=== PATIENT | male | born 1950 | race Caucasian/White ===

== ENCOUNTER → 2016-07-26 | Day surgery (SDC) | payer BC ==
[~2016-07-26] VITALS: Ht 188 cm; Wt 109.0 kg
[~2016-07-26] MED LIST: ASPEC325 PO; ASPI81TA28 PO; ATOR-24 PO; CEFAZOLIN 1000MG/55 ML D5W IV SCH; CEFAZOLIN 2000 MG/60 ML D5W IV SCH; CHOL1000 PO; CLOP1TAB15 PO; CLOP1TAB5 PO; CLOPIDOGREL BISULFATE 300 MG TAB PO ONE; COEN100C11 PO; CYAN500T PO; CZR25 PO; DOXY100C76 PO; FENTANYL CITRATE INJ 50 MCG/1 ML 2 ML VIAL IV ONE; FENTANYL CITRATE INJ 50 MCG/1 ML 2 ML VIAL ONE; GEMF600T3 PO; HEPARIN SOD (PORCINE) 1000 UNIT/ML 10 ML VIAL IV ONE; HEPARIN SOD (PORCINE) 1000 UNIT/ML 10 ML VIAL ONE; HMLI SC; INSDGI SC; INSDGIPEN SC; INSU100I; IODIXANOL (VISIPAQUE) 270 MG/ML 150ML XX ONE; LIDOCAINE HCL 1% 20 ML VIAL INJ ONE; LINE1TAB6 PO; LISI-729 PO; LSN25 PO; MEDLIST; METO50TA16 PO; MIDAZOLAM HCL 1 MG/ML 2ML VIAL IV ONE; MIDAZOLAM HCL 1 MG/ML 2ML VIAL ONE; NEBI10TA2 PO; OMEG10007 PO; ONDANSETRON INJ 2 MG/ML 2 ML VIAL IV PRN; OXYCODONE/ACETAMINOPHEN 5-325 TAB PO PRN; PATIENT'S HEIGHT AND/OR WEIGHT NEEDED SCH; SODIUM CHLORIDE 0.9% 1000ML 1,000 ML IV SCH; SULF800T23 PO
[2016-07-26 06:34] VITALS: BP 170/74; PULSE 70; TEMP 36.4; O2SAT 98; Ht 188 cm; Wt 109.0 kg
[2016-07-26 07:19] LABS: CREATININE 0.94 mg/dl (0.60-1.40)
--- NOTE | 2016-07-26 08:11 | Procedure Note ---
Pre-Mod Sedation Assessment General Date of Moderate Sedation: Jul 26, 2016. Vital Signs: Vital Signs Past 12 Hours Date Time Temp Pulse Resp B/P Pulse Ox O2 Delivery O2 Flow Rate FiO2 07/26/16 06:34 36.4 70 18 170/74 98 Room Air Pre-Sedation Airway Assessment Oral Cavity: WNL Smoking Status: Never Smoker Mallampati Classification: Class I ASA Classification: Class II Notes The planned sedation has been discussed with the patient and consent obtained. I have identified the patient, determined the appropriateness of sedation and have assessed the patient immediately prior to the procedure. All medicine(s) and interventions are by my order.
--- NOTE | 2016-07-26 08:11 | History and Physical ---
History & Physical CC: Bilateral leg claudication HPI: Mr. Llanos states that for approximately a year or so, he has begun having right calf discomfort when ambulating. He states that originally it was occurring at a longer distance, but at this point, he feels he could probably walk approximately a block and a half before needing to stop ambulating due to the discomfort. He states that he feels that it definitely has gotten worse. He denies any rest pain at night, although he does state that his right great toe developed a small wound on the plantar aspect in March and it has now been over 3 months since that developed. He states it has not yet healed, although he is going to the [facility] for wound care on a weekly basis. He denies any other complaints at this time including headaches, fevers , chills, dizziness, chest pain, shortness of breath, abdominal pain, nausea, vomiting, diarrhea, constipation, dysuria, hematuria, or other complaints. He initially had an ultrasound performed prior to today's appointment at another facility that demonstrated a likely inflated JOHNATHON in the right leg of 0.69 and noncompressible arteries in the left leg as well as a right popliteal artery occlusion with monophasic single-vessel flow to the foot. ALLERGIES: No known allergies. HOME MEDICATIONS: Reconciled on the chart and include the following: Aspirin, coenzyme Q10, fish oil, gemfibrozil, Humalog mix pen, Lantus, Lipitor, losartan , metoprolol, vitamin B12, vitamin D3. PAST MEDICAL HISTORY: Positive for a cerebrovascular accident, diabetes mellitus, hyperlipidemia, hypertension, and IL. PAST SURGICAL HISTORY: Positive for cardiac catheterization without intervention. Cataract surgery, eye vitrectomy and laser surgery on his eye as well as a tonsillectomy. FAMILY HISTORY: Positive for cancer and stroke in his mother, diabetes mellitus , IL, heart disease, hypertension in his father, diabetes, heart disease, and heart valve replacement and hypertension in his brother. SOCIAL HISTORY: Negative for tobacco, alcohol or drug use. REVIEW OF SYSTEMS: Negative for fatigue, fevers, sweats, weight loss or exercise intolerance, abnormal moles or rashes, vision changes, photophobia, ear pain, sinus problems or sore throat, cough, shortness of breath, hemoptysis , wheezing, chest pain, palpitations, edema or syncope, abdominal pain, nausea, vomiting, diarrhea, constipation, dysuria, hematuria, muscle weakness, headaches , dizziness, numbness or seizures. PHYSICAL EXAM: His vital signs are as follows: Blood pressure 134/70 in the right arm, 136/70 in the left, heart rate 57, oxygen 98% on room air. The patient is 189.7 cm tall and weighs 111.9 kilograms. Constitutional: In general, patient is a mildly chronically ill-appearing middle-aged male in no acute distress. He ambulates without assistance and is active, alert and oriented x4 with normal recent and remote memory. Head is normocephalic, atraumatic. Eyes are EOMI. ENMT exam demonstrates no hearing loss, rhinorrhea or pharyngeal erythema. Neck is supple, nontender with midline trachea without masses or crepitus. Lung exam demonstrates no dyspnea. They are clear to auscultation bilaterally. Cardiovascular exam demonstrates nondisplaced apical impulse with a regular rate and rhythm without murmurs, lifts, heaves, thrills or gallops. Peripheral pulses are full and equal in all extremities unless otherwise noted, specifically they are normal in his carotid, brachial, radial and femoral pulses. His bilateral lower extremity. Distal pulses are nonpalpable, but are present with Doppler, they are monophasic in the right leg and biphasic in the left. He has brisk capillary refill in all toes. No sign of distal ischemia. The patient demonstrates no bruits in his carotid, abdominal or femoral area. Abdomen is soft, nontender with normoactive bowel sounds in all 4 quadrants without guarding or rebound. There was no flank or CVA tenderness. Musculoskeletal exam demonstrates normal tone and strength for age. Bilateral upper extremities demonstrate no cyanosis, edema, varicosities or ulcers. Right lower extremity plantar surface of the distal part of his right great toe does demonstrate a small shallow ulceration into a callus but this is not very deep. There does not appear to be any significant periwound erythema, but there is a significant amount of dry scaly skin there. There is no odor or drainage and there does not appear to be a black eschar or sign of ischemia. Neurologically, patient is grossly intact cranial nerves and grossly intact sensation. ASSESSMENT AND PLAN: Peripheral arterial disease with claudication and ulceration of the right great toe. Plan: Patient admitted for arteriography of the right lower extremity with possible intervention. I have discussed the risks options and benefits of the procedure with the patient. The patient understands the risks options and benefits and agrees to the procedure.
--- NOTE | 2016-07-26 10:48 | [facility] Post Operative Brief Note ---
Immediate Operative Summary Operative Date Jul 26, 2016. Pre-Operative Diagnosis Right lower extremity atherosclerosis with ulcer Post-Operative Diagnosis Same Procedure(s) Performed Right lower extremity arteriogram YARD GENERAL CAR SUPERVISOR of right peroneal and ant tibial arteries and tibio peroneal trunk Mechanical closure left femoral artery Surgeon Dr. Carrero Mobile Application Developer Surgeon(s) None Estimated Blood Loss 10 Findings ant tib and peroneal occlusion at the origins no residual at end Specimens none Anesthesia Local with sedation Complication(s) None Disposition
--- NOTE | 2016-07-26 10:49 | Procedure Note ---
Post-Moderate Sedation Plan General Date of Moderate Sedation Jul 26, 2016. Vital Signs: Vital Signs Past 12 Hours Date Time Temp Pulse Resp B/P Pulse Ox O2 Delivery O2 Flow Rate FiO2 07/26/16 06:34 36.4 70 18 170/74 98 Room Air Review - Discharge Plan Post Moderate Sedation Plan: On clinical assessment, the patient appears to have tolerated the conscious sedation without complications. Patient is recovering as anticipated. Patient will continue to be monitored by nursing and may be discharged when conscious sedation discharge criteria are met.
--- NOTE | 2016-07-26 10:52 | Discharge Instructions ---
Discharge Instructions Visit Reason for Visit: Rle Peripheral Arterial Disease W/Ulcer Discharge Discharge Diagnosis / Problem: Right lower extremity atherosclerosis with ulcer Discharge Goals Goal(s): Therapeutic intervention Activity Recommendations Activity Limitations: per Instructions/Follow-up section Anesthesia . Post Anesthesia Instructions: If you have had General Anesthesia or IV Sedation: * Do not drive today. * Resume driving when surgeon permits. * Do not make important decisions or sign legal documents today. * Call surgeon for: 1. Temperature elevations greater than 101 degrees F. 2. Uncontrollable pain. 3. Excessive bleeding. 4. Persistent nausea and vomiting. 5. Medication intolerance (nausea, vomiting or rash). * For nausea and vomiting use only clear liquids such as: tea, soda, bouillon until nausea subsides, then gradually increase diet as tolerated. * If you have any concerns or questions, call your surgeon's office. If physician is unavailable and it is an emergency, call 911 or go to the nearest emergency room. . Instructions / Follow-Up Instructions / Follow-Up Call [phone] to schedule a follow up appointment if one not already scheduled. SPECIAL CARE INSTRUCTIONS: Medications: * Continue to take your medications as directed. If you have been given a prescription for Plavix, please fill it immediately and take as directed. Incision Care: * Your puncture site may have some bruising and minor swelling for about one week. * You will have a small dressing covering your puncture site. You may remove the dressing after 24 hours and shower. You may let the warm soapy water run over it, but be sure to dry the puncture site well and keep it dry. * DO NOT IMMERSE THE INCISION IN A TUB/POOL/etc. UNTIL HEALED. * Puncture sites should be kept covered with a band-aid until it begins to heal. Restrictions: * Depending on whether you leg or arm was punctured to access the arteries, you will be required to lay flat, hold your arm still, or both, for about 4 hours after the procedure to prevent bleeding. * Limit your activity for the first 48 hours. You may walk and go up and down steps. Avoid excessive bending or movement at the puncture site. Possible Complications: * Excessive Swelling - after blood flow is improved you may notice increased swelling in the lower legs. This is a normal response. This usually depends on the amount of blockages in the leg, how long they have been there prior to your procedure and how much blood flow was restored. Elevating your legs will help to improve this. Please notify our office ([phone] ) if the swelling does not go away after lying in bed overnight. * Infection/Drainage/Bleeding - Drainage or bleeding from the puncture site should be minimal. If you have excessive bleeding or drainage, call our office ([phone]) right away. * Pain - You may experience some mild pain or soreness at your puncture site. If your pain does not improve, please contact our office ([phone]). Call your doctor and seek emergent treatment if you develop: * Temperature above 101 degrees * Any fever or chills * Any redness or purulent drainage from the puncture site * Any new dusky/blue colored toes or feet with coolness or sharp or aching pain. SKIN IRRITATION: * You may experience some redness and/or swelling in the area where radiation was administered. If any skin irritation occurs, please contact your family physician. FOLLOW UP VISIT: Keep any scheduled doctor appointments. Diet Recommendations Recommended Home Diet: resume previous diet Procedures Procedures Performed: Right lower extremity arteriogram COMPUTER SECURITY MANAGER of right peroneal and ant tibial arteries and tibio peroneal trunk Mechanical closure left femoral artery Pending Studies Studies pending at discharge: no Medical Emergencies . Who to Call and When: Medical Emergencies: If at any time you feel your situation is an emergency, please call 911 immediately. . Non-Emergent Contact Non-Emergency issues call your: Surgeon . . "Provider Documentation" section prepared by David Carrero.
[2016-07-26 10:55] VITALS: BP 141/75; PULSE 72; TEMP 36.7; O2SAT 100
[2016-07-26 11:25] VITALS: BP 152/75; PULSE 67; TEMP 36.7; O2SAT 100
[2016-07-26 11:55] VITALS: BP 185/95; PULSE 73; TEMP 36.8; O2SAT 100
--- NOTE | 2016-07-26 12:20 | DIAGNOSTIC IMAGING REPORT ---
DATE OF PROCEDURE: 07/26/2016 PREOPERATIVE DIAGNOSIS: Right lower extremity atherosclerosis with ulceration of the toe. POSTOPERATIVE DIAGNOSIS: Same with anterior tibial and peroneal origin occlusions. PROCEDURES: 1. Right lower extremity arteriography. 2. Balloon angioplasty of anterior tibial. 3. Balloon angioplasty of peroneal artery. 4. Balloon angioplasty of distal popliteal artery 5. Mechanical closure of left common femoral artery. SURGEON: Dr. Carrero. ANESTHETIC: Local with sedation. PROCEDURE INDICATIONS: The patient is a 66-year-old gentleman who has an ulcer at the tip of his right great toe which is nonhealing. Also has severe claudication. He is found to have a popliteal artery occlusion. Arteriography was recommended. He understood the risks, options and benefits of arteriography and possible intervention and agreed to have this procedure. PROCEDURE IN DETAIL: The patient was taken to the angio suite and placed in supine position. After groins were prepped and draped in a sterile manner, local anesthetic was administered. Percutaneous puncture was made in the left common femoral artery. An 0.035 wire was inserted and 5-Burmese sheath was inserted over the wire. Using an 0.035 guidewire and rim catheter, the right iliac was cannulated from the left side. The rim could not advance. So we just exchanged it for a Quick-Cross. The 0.035 Quick-Cross was then passed down into the external iliac artery and arteriography was performed. The external iliac, common femoral, profunda and superficial femoral artery origins were widely patent with minimal plaque. The wire was reinserted and the Quick-Cross was passed down into the superficial femoral artery. Rest of the arteriogram was performed, showing the superficial femoral artery to be patent. There was slight narrowing at the adductor hiatus. The popliteal artery was patent down to the distal popliteal. The anterior tibial and peroneal artery origins were occluded and reconstituted shortly after. The posterior tibial artery was occluded in its entirety. Lower extremity run showed the peroneal and anterior tibial artery down to the ankle and crossing the foot. At that point, a stiffened Glidewire was inserted. It was passed down into the popliteal, it could not pass the distal popliteal lesion. The Quick-Cross was removed as well as the 5-Burmese sheath and a 7-Burmese destination 60cm length was inserted. Using the Quick-Cross and 0.035 wire, the anterior tibial artery was cannulated. Quick-Cross was passed across the lesion and arteriography showed it to be true lumen. It was decided to try to cannulate both arteries prior to doing any ballooning, in case the balloon would push the plaque over to the other artery. The Quick-Cross was removed after an 0.014 wire was placed in its place into the anterior tibial. Another 0.014 wire and an 0.014 Quick-Cross was inserted. The distal popliteal lesion and peroneal were then traversed with the 0.014 Quick-Cross. The wire was removed. Injection at that point showed it to be true lumen. The wire was reinserted. Next, a 3 x 120 balloon was inserted into anterior tibial artery was dilated first, followed by the peroneal artery. These looked fairly good after post-dilatation. Both arteries were dilated with 8 atmospheres of pressure. We then used a 5 x 4 balloon and dilated the distal popliteal. This however appeared to push plaque back down into the origins of the 2 runoff vessels and decrease the flow. The 3 x 120 balloon was then reinserted and the anterior tibial was redilated. As soon as this balloon was removed, the 3 x 200 was inserted over the other wire into the peroneal and again the peroneal was redilated. After this was completed, there was a good flow seen through the peroneal and anterior tibial arteries down through the foot. There was mild residual narrowing in the distal popliteal. At that point, we decided not to do any further and no flap seen in the dilated area. An injection through the 5-Burmese sheath was done prior to doing the intervention, which showed the puncture site in the common femoral artery on the left side. The destination was then pulled back into the iliac. An 0.035 wire was inserted. Once the wire was in place, the destination was pulled and a Star closure device was used to close the puncture site. This was uneventful. Adequate hemostasis was seen. Sterile dressings were applied. The patient left the angio suite in good condition and tolerated the procedure well. There were good Doppler signals heard in the dorsalis pedis post procedure. HILARIO
[2016-07-26 12:55] VITALS: BP 148/76; PULSE 68; TEMP 36.8; O2SAT 100
[2016-07-26 13:55] VITALS: BP 145/70; PULSE 70; TEMP 36.8; O2SAT 100
== END | disposition home or self-care (01) ==
LOC: C.ACU 06:08
PROVIDERS: ATTEND Surgery Vascular Surgery
DX: I70.235 Atherosclerosis of native arteries of right leg with ulceration of other part of foot (principal); I73.9 Peripheral vascular disease, unspecified; L97.519 Non-pressure chronic ulcer of other part of right foot with unspecified severity; Z86.73 Personal history of transient ischemic attack (TIA), and cerebral infarction without residual deficits; E11.9 Type 2 diabetes mellitus without complications; E78.5 Hyperlipidemia, unspecified; I10 Essential (primary) hypertension; I25.2 Old myocardial infarction; Z98.890 Other specified postprocedural states; Z98.49 Cataract extraction status, unspecified eye; Z90.89 Acquired absence of other organs

== ENCOUNTER → 2016-08-25 | Outpatient (CLI) | payer BC ==
[~2016-08-25] MED LIST changes: -ASPEC325 PO; -CEFAZOLIN 1000MG/55 ML D5W IV SCH; -CEFAZOLIN 2000 MG/60 ML D5W IV SCH; -CLOPIDOGREL BISULFATE 300 MG TAB PO ONE; -FENTANYL CITRATE INJ 50 MCG/1 ML 2 ML VIAL IV ONE; -FENTANYL CITRATE INJ 50 MCG/1 ML 2 ML VIAL ONE; -HEPARIN SOD (PORCINE) 1000 UNIT/ML 10 ML VIAL IV ONE; -HEPARIN SOD (PORCINE) 1000 UNIT/ML 10 ML VIAL ONE; -IODIXANOL (VISIPAQUE) 270 MG/ML 150ML XX ONE; -LIDOCAINE HCL 1% 20 ML VIAL INJ ONE; -MEDLIST; -MIDAZOLAM HCL 1 MG/ML 2ML VIAL IV ONE; -MIDAZOLAM HCL 1 MG/ML 2ML VIAL ONE; -ONDANSETRON INJ 2 MG/ML 2 ML VIAL IV PRN; +OPTIRAY 320 IV PRN; -OXYCODONE/ACETAMINOPHEN 5-325 TAB PO PRN; -PATIENT'S HEIGHT AND/OR WEIGHT NEEDED SCH; -SODIUM CHLORIDE 0.9% 1000ML 1,000 ML IV SCH
[2016-08-25 14:11] LABS: BLOOD UREA NITROGEN 9 mg/dl (7-18); CREATININE 0.89 mg/dl (0.60-1.40)
--- NOTE | 2016-08-25 15:00 | DIAGNOSTIC IMAGING REPORT ---
RIGHT FOOT CT CT DOSE: HISTORY: NON HEALING WOUND RIGHT FOOT 1ST TOE Right TECHNIQUE: Multiaxial CT images of the right foot were performed and reformatted in the sagittal and coronal plane without the use of contrast. COMPARISON: Right first toe 06/29/2016. FINDINGS: Soft tissue swelling within the right first toe with associated 1 cm skin ulceration along the distal plantar aspect of the toe. Deep to the skin ulceration there is partial destruction/erosion of the distal tuft of the first toe. This is consistent with osteomyelitis. No additional areas of erosive change seen within the foot. No acute fracture or dislocation. No radiopaque foreign bodies. IMPRESSION: A 1 cm skin ulceration at the distal plantar aspect of the first toe with underlying destruction/erosion of the distal tuft of the first toe. This is consistent with osteomyelitis. Electronically signed by: Mynor Angeles M.D. 08/25/2016 2:59 PM Dictated Date/Time: 08/25/2016 2:54 PM
== END | disposition home or self-care (01) ==
LOC: C.CTS 13:24
PROVIDERS: ATTEND Emergency Medicine
DX: S91.101A Unspecified open wound of right great toe without damage to nail, initial encounter (principal); L97.519 Non-pressure chronic ulcer of other part of right foot with unspecified severity; X58.XXXA Exposure to other specified factors, initial encounter

== ENCOUNTER → 2016-09-03 | Outpatient (CLI) | payer BC ==
[~2016-09-03] MED LIST changes: -DOXY100C76 PO; -OPTIRAY 320 IV PRN
== END | disposition home or self-care (01) ==
LOC: C.RDSM 14:11
PROVIDERS: ATTEND Physical Medicine & Rehabilitation Sports Medicine
DX: E11.621 Type 2 diabetes mellitus with foot ulcer (principal); L97.519 Non-pressure chronic ulcer of other part of right foot with unspecified severity

== ENCOUNTER → 2016-09-16 | Day surgery (SDC) | payer BC ==
[2016-09-09 15:30] VITALS: Ht 188 cm; Wt 109.1 kg
--- NOTE | 2016-09-10 10:51 | PAT Medication Instructions ---
Service Date Sep 10, 2016. Current Home Medication List Atorvastatin (Lipitor), 40 MG PO DAILY Clopidogrel (Plavix), 75 MG PO QAM Insulin Glargine (Lantus), 55 UNITS SC AMPM Insulin Lispro (Humalog), 0 SC TIDM Linezolid (Zyvox), 600 MG PO BID Losartan Potassium (Cozaar *), 25 MG PO DAILY Metoprolol Tartrate (Lopressor) (Lopressor), 75 MG PO BID Medication Instructions For Your Scheduled Surgery Clopidogrel (Plavix), 75 MG PO QAM (check with surgeon for instructions- please make sure surgeon checked with Dr. Carrero) Losartan Potassium (Cozaar *), 25 MG PO DAILY (patient refusing not to take) Metoprolol Tartrate (Lopressor) (Lopressor), 75 MG PO BID (patient refusing not to take) Atorvastatin (Lipitor), 40 MG PO DAILY (patient refusing not to take) - Hold the following medications the morning of surgery: Insulin Lispro (Humalog), 0 SC TIDM Linezolid (Zyvox), 600 MG PO BID - Take the following medications as scheduled the night before surgery: Insulin Glargine (Lantus), (take 45-50 units) Linezolid (Zyvox), 600 MG PO BID - For Insulin Dependent Diabetic patients: Test blood sugar A.M. of surgery. - If blood sugar is greater than 150, take half of your regular dose of: Lantus 27 units - If blood sugar is less than 150, do not take any: Lantus morning of surgery If you have any questions please call us at [phone] or [phone] ( Lizz) or [phone]
[2016-09-10 11:07] LABS: BASO % 0.8 %; BASO ABS # 0.07 K/uL (0-0.2); COMPLETE YES; EOS % 1.3 %; HEMATOCRIT 46.3 % (42-52); IG% 0.1 %; LYMPH % 23.3 %; MEAN CELL VOLUME 79.3 fL (80-100); MEAN CORPUSCULAR HEMOGLOBIN 27.1 pg (25-34); MEAN CORPUSCULAR HGB CONC 34.1 g/dl (32-36); MEAN PLATELET VOLUME 10.3 fL (7.4-10.4); MONO % 9.4 %; NEUT % 65.1 %; PLATELET COUNT 259 K/uL (130-400); RED BLOOD COUNT 5.84 M/uL (4.7-6.1)
[2016-09-10 11:18] LABS: PARTIAL THROMBOPLASTIN RATIO 1.1; PROTHROMBIN TIME (PATIENT) 10.8 SECONDS (9.0-12.0)
[2016-09-10 11:24] LABS: BUN/CREATININE RATIO 9.4 (10-20); CALCIUM 8.7 mg/dl (8.5-10.1); POTASSIUM 4.3 mmol/L (3.5-5.1)
[~2016-09-16] VITALS: Ht 188 cm; Wt 109.1 kg
[~2016-09-16] MED LIST changes: +ATROPINE SULFATE 0.1 MG/ML 5ML SYR IV PRN; +BUPIVACAINE 0.5 % 5 MG/1 ML MPF 30ML VIAL ONE; +CEFAZOLIN 2000 MG/60 ML D5W IV SCH; -CHOL1000 PO; -CLOP1TAB5 PO; -COEN100C11 PO; -CYAN500T PO; +DEXAMETHASONE SOD INJ 4 MG/ML VIAL IV PRN; +EpHEDrine SULFATE INJ 50 MG/ML AMP IV PRN; +FENTANYL CITRATE INJ 50 MCG/1 ML 2 ML VIAL IV PRN; +FENTANYL CITRATE INJ 50 MCG/1 ML 2 ML VIAL ONE; -GEMF600T3 PO; +KETOROLAC TROMETHAMINE 30 MG/ML VIAL IV. PRN; +LABETALOL HCL IV 5 MG/ML 20ML IV PRN; +LACTATED RINGER'S 1000ML 1,000 ML IV SCH; +LIDOCAINE HCL 2% 2 ML VIAL (20MG/ML) ONE; +LIDOCAINE/EPINEPHRINE 1% INJ 50 ML VIAL ONE; +METOCLOPRAMIDE HCL INJ 5 MG/ML 2 ML VIAL IV PRN; +MIDAZOLAM HCL 1 MG/ML 2ML VIAL ONE; +MoRPHine SULFATE 10 MG/ML CARP/VIAL IV PRN; -OMEG10007 PO; +ONDANSETRON INJ 2 MG/ML 2 ML VIAL IV PRN; +OXYCODONE/ACETAMINOPHEN 5-325 TAB PO PRN; +PHENYLEPHRINE 100MCG/ML 5ML SYR IV PRN; +PROPOFOL IV EMULSION 10 MG/ML 20 ML VIAL IV ONE; +SODIUM CHLORIDE 0.9% 1000ML 1,000 ML IV SCH
--- NOTE | 2016-09-16 12:57 | History & Physical Bridge Note ---
H&P Re-Evaluation Bridge Note: I have examined the patient, reviewed the History & Physical and in the interval since the performance of the History & Physical I have noted the following changes of clinical significance: No changes noted
[2016-09-16 14:24] VITALS: TEMP 36.5
--- NOTE | 2016-09-16 14:28 | Discharge Instructions ---
Discharge Instructions Admission Reason for Admission: Right Big Toe Osteomyelitis Discharge Discharge Diagnosis / Problem: Right great toe amputation Discharge Goals Goal(s): Decrease discomfort, Improve function, Increase independence Activity Recommendations Activity Limitations: as noted below Lifting Limitations: none Exercise/Sports Limitations: until after follow-up appointment May Resume Sexual Activity: when tolerated Shower/Bathe: tomorrow, keep incision dry Driving or Machine Use: No driving until cleared by orthopaedic specialist. Weightbearing Status: Right partial (Partial weight bearing on heel of Right foot with use of post op shoe and crutches.) . Instructions / Follow-Up Instructions / Follow-Up DIET: * Resume previous diet. MEDICATIONS: * Please take your prescriptions as instructed at your pre-op appointment and/ or see medication discharge instructions listed above. * If concerns develop, call your physician's office at . SPECIAL CARE INSTRUCTIONS: * Ice/Elevate as instructed. * Keep dressing clean, dry, intact. * Your surgical extremity may be discolored due to prepping agents used on the skin. A bluish-green tint is a normal variant and should not cause alarm. Call your doctor at [phone] if: * Temperature above 101 degrees * Pain not relieved by pain medicine ordered * There is increased drainage or redness from any incision * You have any unanswered questions, problems or concerns. FOLLOW UP VISIT: * If not already scheduled, please call the office at to schedule a follow-up appointment. Current Hospital Diet Patient's current hospital diet: Discharge Diet Recommended Diet: Diabetes Type 1 Diet Procedures Procedures Performed: Right Great Toe Amputation Pending Studies Studies pending at discharge: yes List of pending studies: Culture and biopsy of excised Right 1st distal phalanx. Laboratory Results Hemoglobin A1c Test 06/29/16 12:35 Range/Units Estimated Average Glucose 200 mg/dl Hemoglobin A1c 8.6 H 4.5-5.6 % Medical Emergencies . Who to Call and When: Medical Emergencies: If at any time you feel your situation is an emergency, please call 911 immediately. . Non-Emergent Contact Non-Emergency issues call your: Primary Care Provider Call Non-Emergent contact if: temperature is above 101.5, your pain is not controlled, wound has increased drainage, you have any medication questions . "Provider Documentation" section prepared by Manuelito Iyer. VTE Core Measure Inpt VTE Proph given/why not?: Other Anticoagulation (Plavix) [place] Drug Monitoring Program Search Results: no issues identified
--- NOTE | 2016-09-16 14:35 | [facility] Post Operative Brief Note ---
Immediate Operative Summary Operative Date Sep 16, 2016. Pre-Operative Diagnosis Right Big Toe Osteomyelitis Post-Operative Diagnosis Same Procedure(s) Performed Right Great Toe Amputation Surgeon Dr. Harvey Shuttle Repairer Surgeon(s) miguel ángel Vazquez ms3 Estimated Blood Loss Minimal Findings r great toe ulceration, soft deformed bone Specimens A.) Right Big Toe Bone Culture & Biopsy B.) Right Big Toe Culture (Gram Stain, Aerobic , Anerobic) Anesthesia local with IV sedation Complication(s) None Disposition Recovery Room / PACU
--- NOTE | 2016-09-16 14:45 | Anesthesia Progress Nt - [facility] ---
Anesthesia Post Op Note Date & Time Sep 16, 2016 at 14:45 Vital Signs Pain Intensity: 0 Vital Signs Past 12 Hours Date Time Temp Pulse Resp B/P Pulse Ox O2 Delivery O2 Flow Rate FiO2 09/16/16 14:24 36.5 66 18 151/76 96 Room Air 09/16/16 11:26 36.4 72 20 155/84 98 Room Air Notes Mental Status: alert / awake / arousable, participated in evaluation Pt Amnestic to Procedure: Yes Nausea / Vomiting: adequately controlled Pain: adequately controlled Airway Patency, RR, SpO2: stable & adequate BP & HR: stable & adequate Hydration State: stable & adequate Anesthetic Complications: no major complications apparent
[2016-09-16 14:52] VITALS: PULSE 74; O2SAT 97
[2016-09-16 14:58] VITALS: BP 164/82
--- NOTE | 2016-09-16 17:06 | OPERATIVE REPORT ---
DATE OF OPERATION: 09/16/2016 PREOPERATIVE DIAGNOSIS: Right great toe diabetic foot ulceration with probable underlying osteomyelitis of the distal phalanx. POSTOPERATIVE DIAGNOSIS: Same. PROCEDURE: Partial amputation of the right great toe through the interphalangeal joint. SURGEON: Darrell Harvey MD ACT ENGLISH TUTOR: Primo Rebolledo MD fellow. No PA available. SECOND ACT ENGLISH TUTOR: Barron Linton [facility] third year medical student. ANESTHESIA: Local with IV sedation. INDICATIONS OF PROCEDURE: The patient is a 66-year-old male who is having been treated for an ulceration on the plantar lateral aspect of his right great toe. Radiographs and MRI suggests bone was damaged consistent with osteomyelitis. He is taken to surgery for debridement and partial amputation. PROCEDURE IN DETAIL: Informed consent was obtained. The patient identified as Manuelito Llanos. He identified the operative site as the right big toe. I marked it with my initials. A preop surgical time out was performed. A preop dose of IV antibiotics was given. He was taken to the operating room, positioned supine on the operating room table. Sedation was given along with a digital block using 10 mL of a mixture of 1% lidocaine with epinephrine and 0.5% Marcaine for a digital block. No tourniquet was utilized and an impervious drape was applied just below the knee. There was dried skin over the ulceration which was removed. Underneath this was some purulence in the ulcer cavity. The ulcer was about 12-15 mm in diameter. There was extensive dried skin throughout big toe which was debrided. There was no significant swelling or erythema. The bone could be palpated deep within the ulcer with a thin layer of soft tissue covering it. The nail plate had been previously excised. He received a preoperative dose of IV antibiotics. DVT prophylaxis will be done with early patient mobility. A bump was placed under the right hip. Bony prominences were inspected and padded. The foot was prepped with Betadine and draped in usual sterile fashion. I began by excising the ulcer to 2 mm margin of a hyperkeratotic skin along with the granulation tissue present within the ulcer down to the level of the bone. I then went ahead and did a terminal Syme type amputation excising the eponychial fold, germinal matrix and the nail bed in a full thickness fashion. The distal phalanx was then dissected out of its bed. Softened bone distally was noted as well. Culture was obtained of the exposed area suspected for osteomyelitis. The bone was also additionally sent for biopsy and culture. In order to affect the amputation, the incision was extended for about 1.5 cm proximally in dorsal midline. The flexor tendon was dissected out, pulled into the wound and amputated and allowed to retract. The extensor tendon was partially excised, but otherwise included with the dorsal skin flap. There was mild bleeding present. This was throughout. There was not overly robust bleeding, but there was at least some diffuse hemorrhage occurring. The toe was then irrigated with several 100 mL of sterile Betadine lavage solution. I then repaired the dorsal incision with 3-0 nylon. I then took the plantar flap and brought it up and found that we could probably excise the complete ulcer and distal portion of the toe and achieve a tension free closure. I went ahead and did this excising proximally at the level of the proximal ulcer with a couple more millimeters of tissue removed. I debrided with a rongeur. There was no residual bone or any evidence of infection left. I excised dog ears medially and laterally and I closed the skin in a tension free fashion, completely covering over the bone with good apposition of the skin edges using 3-0 nylon. Xeroform was applied after cleaning the toe and then went ahead and placed fluffs between the toes, a bulky soft sterile dressing followed by an Kory wrap and postop shoe. The patient was taken to recovery room in stable condition. Specimens were as mentioned above. Counts were correct. There were no complications. Blood loss was minimal. At the conclusion of the operation, I spoke to patient's family and informed them of my findings and gave detailed postoperative instructions. The patient should follow up with me on Tuesday or Tuesday for recheck. Elevation is emphasized. He will continue on his regular medications including the linezolid antibiotic. He has a wound clinic appointment next week. I attest to the content of the Intraoperative Record and any orders documented therein. Any exceptio ns are noted below.
== END | disposition home or self-care (01) ==
LOC: X.SURG 11:10
PROVIDERS: ATTEND Physical Medicine & Rehabilitation Sports Medicine
DX: M86.171 Other acute osteomyelitis, right ankle and foot (principal); E11.621 Type 2 diabetes mellitus with foot ulcer; L97.519 Non-pressure chronic ulcer of other part of right foot with unspecified severity; M87.08 Idiopathic aseptic necrosis of bone, other site; I10 Essential (primary) hypertension; E78.5 Hyperlipidemia, unspecified; Z86.73 Personal history of transient ischemic attack (TIA), and cerebral infarction without residual deficits; Z87.442 Personal history of urinary calculi; Z98.49 Cataract extraction status, unspecified eye; Z95.5 Presence of coronary angioplasty implant and graft; Z79.4 Long term (current) use of insulin; M86.9 Osteomyelitis, unspecified

== ENCOUNTER → 2016-09-27 | Outpatient (CLI) | payer BC ==
[~2016-09-27] MED LIST changes: -ATROPINE SULFATE 0.1 MG/ML 5ML SYR IV PRN; -BUPIVACAINE 0.5 % 5 MG/1 ML MPF 30ML VIAL ONE; -CEFAZOLIN 2000 MG/60 ML D5W IV SCH; -DEXAMETHASONE SOD INJ 4 MG/ML VIAL IV PRN; -EpHEDrine SULFATE INJ 50 MG/ML AMP IV PRN; -FENTANYL CITRATE INJ 50 MCG/1 ML 2 ML VIAL IV PRN; -FENTANYL CITRATE INJ 50 MCG/1 ML 2 ML VIAL ONE; -KETOROLAC TROMETHAMINE 30 MG/ML VIAL IV. PRN; -LABETALOL HCL IV 5 MG/ML 20ML IV PRN; -LACTATED RINGER'S 1000ML 1,000 ML IV SCH; -LIDOCAINE HCL 2% 2 ML VIAL (20MG/ML) ONE; -LIDOCAINE/EPINEPHRINE 1% INJ 50 ML VIAL ONE; -METOCLOPRAMIDE HCL INJ 5 MG/ML 2 ML VIAL IV PRN; -MIDAZOLAM HCL 1 MG/ML 2ML VIAL ONE; -MoRPHine SULFATE 10 MG/ML CARP/VIAL IV PRN; -ONDANSETRON INJ 2 MG/ML 2 ML VIAL IV PRN; -OXYCODONE/ACETAMINOPHEN 5-325 TAB PO PRN; -PHENYLEPHRINE 100MCG/ML 5ML SYR IV PRN; -PROPOFOL IV EMULSION 10 MG/ML 20 ML VIAL IV ONE; -SODIUM CHLORIDE 0.9% 1000ML 1,000 ML IV SCH
[2016-09-27 17:08] LABS: CHOLESTEROL/HDL RATIO 3.5; THYROID STIMULATING HORMONE 1.8 uIu/ml (0.300-4.500)
[2016-09-28 07:18] LABS: ESTIMATED AVERAGE GLUCOSE 186 mg/dl; HA1C FLAG Normal (Normal)
== END | disposition home or self-care (01) ==
LOC: C.LABBC 12:23
PROVIDERS: ATTEND Family Medicine
DX: E11.8 Type 2 diabetes mellitus with unspecified complications (principal); E78.00 Pure hypercholesterolemia, unspecified

== ENCOUNTER → 2016-10-26 | Outpatient (CLI) | payer BC ==
[~2016-10-26] MED LIST changes: +ACET-1256 PO; +AMOX500T PO; +ATOR-26 PO; +BYS/5 PO; +CALC1TAB9 PO; +CEPH500C PO; +CHOL20007 PO; +DGRI240 SC; +ESCI10TA17 PO; -INSU100I; +INSU100I SC; +LVNIS40 SC
--- NOTE | 2016-10-26 15:20 | DIAGNOSTIC IMAGING REPORT ---
RIGHT FOOT MIN 3 VIEWS ROUTINE CLINICAL HISTORY: NON HEALING WOUND RIGHT LATERAL FOOT Right COMPARISON STUDY: Right foot CT 08/25/2016. FINDINGS: There is a 2.6 cm focal skin ulcer along the lateral aspect of the right foot at the level of the fifth metatarsal head. No underlying bony destruction to suggest osteomyelitis at this time. The bones are osteopenic. No acute fracture or dislocation. Vascular calcifications are noted. Prior amputation of the first toe distal phalanx. IMPRESSION: There is a 2.6 cm focal skin ulcer along the lateral aspect of the right foot at the level of the fifth metatarsal head. No underlying bony destruction to suggest osteomyelitis at this time. Electronically signed by: Mynor Angeles M.D. 10/26/2016 3:19 PM Dictated Date/Time: 10/26/2016 3:16 PM
== END | disposition home or self-care (01) ==
LOC: C.RAD 13:56
PROVIDERS: ATTEND Emergency Medicine
DX: L97.519 Non-pressure chronic ulcer of other part of right foot with unspecified severity (principal)

== ENCOUNTER 2016-10-29 05:17 | Day surgery (SDC) | payer BC ==
[~2016-10-29] VITALS: Ht 188 cm; Wt 109.0 kg
[2016-10-29] VITALS (8 sets, daily range): BP systolic 152–182; BP diastolic 87–96; PULSE 80–97; TEMP 36.5–36.7; O2SAT 97–100; Ht 188 cm; Wt 109.0 kg
[~2016-10-29 05:17] MED LIST changes: -ACET-1256 PO; -AMOX500T PO; -ASPI81TA28 PO; -ATOR-24 PO; -ATOR-26 PO; -BYS/5 PO; -CALC1TAB9 PO; -CEPH500C PO; -CHOL20007 PO; -CLOP1TAB15 PO; -DGRI240 SC; -ESCI10TA17 PO; -INSDGIPEN SC; -INSU100I SC; -LISI-729 PO; -LSN25 PO; -LVNIS40 SC; -NEBI10TA2 PO; -SULF800T23 PO
[2016-10-29] MEDS ORDERED: SODIUM CHLORIDE 0.9% 1000ML IV SCH (06:00)
[2016-10-29] MEDS ORDERED: CEFAZOLIN 1000MG/55 ML D5W IV SCH (06:00)
[2016-10-29 06:23] LABS: CREATININE 1.1 mg/dl (0.60-1.40)
[2016-10-29] MEDS ORDERED: CEFAZOLIN 2000 MG/60 ML D5W 60 ML IV SCH (07:00)
[2016-10-29] MEDS ORDERED: HEPARIN SOD (PORCINE) 1000 UNIT/ML 10 ML VIAL ONE (07:38)
[2016-10-29] MEDS ORDERED: FENTANYL CITRATE INJ 50 MCG/1 ML 2 ML VIAL ONE ×2 (07:39→10:00)
[2016-10-29] MEDS ORDERED: MIDAZOLAM HCL 1 MG/ML 2ML VIAL ONE ×2 (07:39→10:00)
--- NOTE | 2016-10-29 07:42 | History and Physical ---
History & Physical Date of Service Oct 29, 2016. History & Physical CC: right leg claudication HPI: Mr. Llanos states that for approximately a year or so, he has begun having right calf discomfort when ambulating. He states that originally it was occurring at a longer distance, but at this point, he feels he could probably walk approximately a block and a half before needing to stop ambulating due to the discomfort. He states that he feels that it definitely has gotten worse. He denies any rest pain at night, although he does state that his right great toe developed a small wound on the plantar aspect in March and it has now been over 3 months since that developed. He states it has not yet healed, although he is going to the [facility] for wound care on a weekly basis. He initially had an ultrasound performed prior to today's appointment at another facility that demonstrated a likely inflated JOHNATHON in the right leg of 0.69 and noncompressible arteries in the left leg as well as a right popliteal artery occlusion with monophasic single-vessel flow to the foot. He had intervention of the right leg early this year with good results. He know complains of recurrent claudication of the right leg. He was found to have a popliteal artery occlusion on duplex. He denies any other complaints at this time including headaches, fevers, chills, dizziness, chest pain, shortness of breath, abdominal pain, nausea, vomiting, diarrhea, constipation, dysuria, hematuria, or other complaints. ALLERGIES: No known allergies. HOME MEDICATIONS: Reconciled on the chart and include the following: Aspirin, coenzyme Q10, fish oil, gemfibrozil, Humalog mix pen, Lantus, Lipitor, losartan , metoprolol, vitamin B12, vitamin D3. PAST MEDICAL HISTORY: Positive for a cerebrovascular accident, diabetes mellitus, hyperlipidemia, hypertension, and KS. PAST SURGICAL HISTORY: Positive for cardiac catheterization without intervention. Cataract surgery, eye vitrectomy and laser surgery on his eye as well as a tonsillectomy. FAMILY HISTORY: Positive for cancer and stroke in his mother, diabetes mellitus , KS, heart disease, hypertension in his father, diabetes, heart disease, and heart valve replacement and hypertension in his brother. SOCIAL HISTORY: Negative for tobacco, alcohol or drug use. REVIEW OF SYSTEMS: Negative for fatigue, fevers, sweats, weight loss or exercise intolerance, abnormal moles or rashes, vision changes, photophobia, ear pain, sinus problems or sore throat, cough, shortness of breath, hemoptysis , wheezing, chest pain, palpitations, edema or syncope, abdominal pain, nausea, vomiting, diarrhea, constipation, dysuria, hematuria, muscle weakness, headaches , dizziness, numbness or seizures. PHYSICAL EXAM: His vital signs are as follows: Blood pressure 134/70 in the right arm, 136/70 in the left, heart rate 57, oxygen 98% on room air. The patient is 189.7 cm tall and weighs 111.9 kilograms. Constitutional: In general, patient is a mildly chronically ill-appearing middle-aged male in no acute distress. He ambulates without assistance and is active, alert and oriented x4 with normal recent and remote memory. Head is normocephalic, atraumatic. Eyes are EOMI. ENMT exam demonstrates no hearing loss, rhinorrhea or pharyngeal erythema. Neck is supple, nontender with midline trachea without masses or crepitus. Lung exam demonstrates no dyspnea. They are clear to auscultation bilaterally. Cardiovascular exam demonstrates nondisplaced apical impulse with a regular rate and rhythm without murmurs, lifts, heaves, thrills or gallops. Peripheral pulses are full and equal in all extremities unless otherwise noted, specifically they are normal in his carotid, brachial, radial and femoral pulses. His bilateral lower extremity. Distal pulses are nonpalpable, but are present with Doppler, they are monophasic in the right leg and biphasic in the left. He has brisk capillary refill in all toes. No sign of distal ischemia. The patient demonstrates no bruits in his carotid, abdominal or femoral area. Abdomen is soft, nontender with normoactive bowel sounds in all 4 quadrants without guarding or rebound. There was no flank or CVA tenderness. Musculoskeletal exam demonstrates normal tone and strength for age. Bilateral upper extremities demonstrate no cyanosis, edema, varicosities or ulcers. Right lower extremity plantar surface of the distal part of his right great toe does demonstrate a small shallow ulceration into a callus but this is not very deep. There does not appear to be any significant periwound erythema, but there is a significant amount of dry scaly skin there. There is no odor or drainage and there does not appear to be a black eschar or sign of ischemia. Neurologically, patient is grossly intact cranial nerves and grossly intact sensation. ASSESSMENT AND PLAN: Peripheral arterial disease with claudication and ulceration of the right great toe. Plan: Patient admitted for arteriography of the right lower extremity with possible intervention. I have discussed the risks options and benefits of the procedure with the patient. The patient understands the risks options and benefits and agrees to the procedure.
--- NOTE | 2016-10-29 07:43 | Procedure Note ---
Pre-Mod Sedation Assessment General Date of Moderate Sedation: Oct 29, 2016. Vital Signs: Vital Signs Past 12 Hours Date Time Temp Pulse Resp B/P Pulse Ox O2 Delivery O2 Flow Rate FiO2 10/29/16 06:01 36.5 80 18 182/92 100 Room Air Pre-Sedation Airway Assessment Oral Cavity: WNL Hx of Sleep Apnea: No Smoking Status: Never Smoker Mallampati Classification: Class I ASA Classification: Class II Notes The planned sedation has been discussed with the patient and consent obtained. I have identified the patient, determined the appropriateness of sedation and have assessed the patient immediately prior to the procedure. All medicine(s) and interventions are by my order.
[2016-10-29] MEDS ORDERED: FENTANYL CITRATE INJ 50 MCG/1 ML 2 ML VIAL IV ONE ×2 (08:24→09:20)
[2016-10-29] MEDS ORDERED: MIDAZOLAM HCL 1 MG/ML 2ML VIAL IV ONE ×2 (08:42→09:20)
[2016-10-29] MEDS ORDERED: HEPARIN SOD (PORCINE) 1000 UNIT/ML 10 ML VIAL IV ONE ×2 (09:29→09:44)
[2016-10-29] MEDS ORDERED: IODIXANOL (VISIPAQUE) 270 MG/ML 150ML FLUSH ONE (10:17)
[2016-10-29] MEDS ORDERED: SODIUM CHLORIDE 0.9% 1000ML 1,000 ML IV SCH (10:19)
--- NOTE | 2016-10-29 10:20 | Procedure Note ---
Post-Moderate Sedation Plan General Date of Moderate Sedation Oct 29, 2016. Vital Signs: Vital Signs Past 12 Hours Date Time Temp Pulse Resp B/P Pulse Ox O2 Delivery O2 Flow Rate FiO2 10/29/16 07:45 36.5 80 16 182/92 98 Room Air 10/29/16 06:01 36.5 80 18 182/92 100 Room Air Review - Discharge Plan Post Moderate Sedation Plan: On clinical assessment, the patient appears to have tolerated the conscious sedation without complications. Patient is recovering as anticipated. Patient will continue to be monitored by nursing and may be discharged when conscious sedation discharge criteria are met.
--- NOTE | 2016-10-29 10:23 | [facility] Post Operative Brief Note ---
Immediate Operative Summary Operative Date Oct 29, 2016. Pre-Operative Diagnosis Right Leg Claudication Post-Operative Diagnosis Same Procedure(s) Performed Right Lower Extremity Angiogram, Percutaneous Transluminal Angioplasty, Mechanical Atherectomy and Stenting of Right Popliteal Artery, Percutaneous Transluminal Angioplasty and Mechanical Atherectomy of Right Peroneal Artery, mechanical closure left femoral artery Moderate Sedation (0886 [phone] 0413 ) Surgeon Dr. Carrero Needle Punch Machine Operator Helper Surgeon(s) Dr. Rae Melgar Estimated Blood Loss 20 Findings good peroneal flow Specimens None Anesthesia Local with moderate sedation Complication(s) None Disposition
--- NOTE | 2016-10-29 11:16 | DIAGNOSTIC IMAGING REPORT ---
DATE OF PROCEDURE: 10/29/2016 PREOPERATIVE DIAGNOSIS: Right lower extremity critical limb ischemia. POSTOPERATIVE DIAGNOSIS: Same. PROCEDURE: Ultrasound guided left common femoral arterial access. Right lower extremity angiogram. Angioplasty and atherectomy of right peroneal artery Atherectomy, angioplasty, stenting with 5 x 50 Viabahn of right popliteal artery . Closure of left femoral artery with a Star closure device. Conscious sedation for 114 minutes. SURGEON: Dr. David Carrero. UTILITY ACCOUNTS DIRECTOR: Dr. Melgar ANESTHESIA: Local plus conscious sedation. URINE OUTPUT: Not recorded. ESTIMATED BLOOD LOSS: 20 mL COMPLICATIONS: None apparent. CONDITION: Stable to PACU. CONTRAST: 150 mL MILLIGRAYS: 145. FLUOROSCOPY TIME: 20 minutes. INDICATIONS: Mr. Llanos is a gentleman who has no popliteal occlusion and right foot tissue loss and critical limb ischemia. He was advised of the risks and benefits of undergoing angiogram and agreed to undergo procedure. PROCEDURE: The patient was brought into the operative suite. He was prepped and draped in a usual fashion. A timeout occurred. Ultrasound-guided access of his left femoral artery was obtained. This was widely patent. His right iliac was selected with a rim catheter. A wire was advanced into the right external iliac. Unfortunately, the rim would not track. This was exchanged for a 135 mm Quick-Cross catheter. The Quick-Cross catheter was passed into the right external iliac, and angiogram of the right lower extremity was obtained. This demonstrated the SFA and profunda were patent. The right common femoral artery was patent without signs of significant stenosis. The popliteal artery occluded just above the knee joint and reconstituted in the below knee popliteal just above the AT. There were 2 areas of focal stenosis in the proximal peroneal artery. The peroneal artery was patent with AT filling secondarily. The 5-Moldovan short sheath was exchanged for an 8-Moldovan destination sheath. The SFA was selected with use of a glide catheter and Glidewire. A wire was advanced into the popliteal artery. A Quick-Cross was placed. This was exchanged for a 014 jetwire and the jetsream device was used in the peroneal TP trunk and popliteal artery. After this, angiogram demonstrated a small flow channel. A 3 x 120 balloon was advanced into the peroneal artery, inflated and then sterilely backed up into the popliteal artery. Angiogram was then taken again which demonstrated resolution of the peroneal stenosis and patent AT artery. A 5 x 100 balloon was then used into the popliteal artery. Post-pictures demonstrated flow through the popliteal and in the area of occlusion. This balloon was removed and a 2.1 Jetstream atherectomy catheter was advanced over and used in the popliteal artery. This was withdrawn and 5 x 100 balloon was again used to angioplasty the popliteal. Angiogram showed widely patent popliteal until the distal end where there were some irregularity. At this time, it was decided to stent this area of the below knee popliteal artery and a 5 x 50 Viabahn stent was placed. This was postdilated with a 3 x 120 balloon. Completion angiogram showed widely patent popliteal, peroneal and AT arteries. At this time, the catheters were removed. The sheath was backed into the left external iliac. The left groin shot was obtained showing the sheath in the common femoral artery. At this time, a Star closure was used to close the left femoral artery and pressure was held until hemostasis was obtained. The patient tolerated the procedure well and was transferred to the PACU in stable condition. Dr. David Carrero was present and scrubbed for the entirety of this case. HILARIO
--- NOTE | 2016-10-29 12:52 | Discharge Instructions ---
Discharge Instructions Date of Service Oct 29, 2016. Visit Reason for Visit: Right Lower Extremity Critical Limb Ischemia Discharge Discharge Diagnosis / Problem: right popliteal artery occlusion with ulcer Discharge Goals Goal(s): Therapeutic intervention Activity Recommendations Activity Limitations: per Instructions/Follow-up section Anesthesia . Post Anesthesia Instructions: If you have had General Anesthesia or IV Sedation: * Do not drive today. * Resume driving when surgeon permits. * Do not make important decisions or sign legal documents today. * Call surgeon for: 1. Temperature elevations greater than 101 degrees F. 2. Uncontrollable pain. 3. Excessive bleeding. 4. Persistent nausea and vomiting. 5. Medication intolerance (nausea, vomiting or rash). * For nausea and vomiting use only clear liquids such as: tea, soda, bouillon until nausea subsides, then gradually increase diet as tolerated. * If you have any concerns or questions, call your surgeon's office. If physician is unavailable and it is an emergency, call 911 or go to the nearest emergency room. . Instructions / Follow-Up Instructions / Follow-Up SPECIAL CARE INSTRUCTIONS: Medications: * Continue to take your medications as directed. If you have been given a prescription for Plavix, please fill it immediately and take as directed. Incision Care: * Your puncture site may have some bruising and minor swelling for about one week. * You will have a small dressing covering your puncture site. You may remove the dressing after 24 hours and shower. You may let the warm soapy water run over it, but be sure to dry the puncture site well and keep it dry. * DO NOT IMMERSE THE INCISION IN A TUB/POOL/etc. UNTIL HEALED. * Puncture sites should be kept covered with a band-aid until it begins to heal. Restrictions: * Depending on whether you leg or arm was punctured to access the arteries, you will be required to lay flat, hold your arm still, or both, for about 4 hours after the procedure to prevent bleeding. * Limit your activity for the first 48 hours. You may walk and go up and down steps. Avoid excessive bending or movement at the puncture site. Possible Complications: * Excessive Swelling - after blood flow is improved you may notice increased swelling in the lower legs. This is a normal response. This usually depends on the amount of blockages in the leg, how long they have been there prior to your procedure and how much blood flow was restored. Elevating your legs will help to improve this. Please notify our office ([phone] ) if the swelling does not go away after lying in bed overnight. * Infection/Drainage/Bleeding - Drainage or bleeding from the puncture site should be minimal. If you have excessive bleeding or drainage, call our office ([phone]) right away. * Pain - You may experience some mild pain or soreness at your puncture site. If your pain does not improve, please contact our office ([phone]). Call your doctor and seek emergent treatment if you develop: * Temperature above 101 degrees * Any fever or chills * Any redness or purulent drainage from the puncture site * Any new dusky/blue colored toes or feet with coolness or sharp or aching pain. SKIN IRRITATION: * You may experience some redness and/or swelling in the area where radiation was administered. If any skin irritation occurs, please contact your family physician. FOLLOW UP VISIT: Keep any scheduled doctor appointments. Diet Recommendations Recommended Home Diet: resume previous diet Procedures Procedures Performed: Right Lower Extremity Angiogram, Percutaneous Transluminal Angioplasty, Mechanical Atherectomy and Stenting of Right Popliteal Artery, Percutaneous Transluminal Angioplasty and Mechanical Atherectomy of Right Peroneal Artery, mechanical closure left femoral artery Moderate Sedation (6488 [phone] 6386 ) Pending Studies Studies pending at discharge: no Medical Emergencies . Who to Call and When: Medical Emergencies: If at any time you feel your situation is an emergency, please call 911 immediately. . Non-Emergent Contact Non-Emergency issues call your: Surgeon . . "Provider Documentation" section prepared by David Carrero.
[2016-12-10] MEDS ORDERED: SULF800T23 PO (07:40)
[2017-03-26] MEDS ORDERED: LSN25 PO (13:59)
[2017-04-19] MEDS ORDERED: NEBI10TA2 PO (09:56)
[2017-05-02] MEDS ORDERED: LISI-729 PO (09:56)
[2017-05-02] MEDS ORDERED: INSU100I SC (11:52)
[2017-05-24] MEDS ORDERED: INSDGIPEN SC (14:21)
[2017-06-09] MEDS ORDERED: SULF800T23 PO (13:32)
[2017-06-17] MEDS ORDERED: LVNIS40 SC (16:35)
== END 2016-10-29 13:45 | disposition home or self-care (01) ==
LOC: C.ACU 05:17
PROVIDERS: ATTEND Surgery Vascular Surgery
DX: I70.211 Atherosclerosis of native arteries of extremities with intermittent claudication, right leg (principal); E11.9 Type 2 diabetes mellitus without complications; E78.5 Hyperlipidemia, unspecified; I10 Essential (primary) hypertension; I25.2 Old myocardial infarction; Z79.4 Long term (current) use of insulin; Z98.890 Other specified postprocedural states; Z82.49 Family history of ischemic heart disease and other diseases of the circulatory system; Z83.3 Family history of diabetes mellitus

== ENCOUNTER → 2017-02-21 | Outpatient (CLI) | payer BC ==
[~2017-02-21] MED LIST changes: +ASPI81TA28 PO; +ATOR-24 PO; +BYS/5 PO; +CALC1TAB9 PO; +CEPH500C PO; +CHOL20007 PO; +CLOP1TAB15 PO; +DGRI240 SC; +ESCI10TA17 PO; +INSDGIPEN SC; +INSU100I; -LINE1TAB6 PO; +LISI-729 PO; +LSN25 PO; +NEBI10TA2 PO
[2017-02-21 11:55] LABS: ESTIMATED AVERAGE GLUCOSE 186 mg/dl; HA1C FLAG Normal (Normal)
[2017-02-21 12:01] LABS: ALT/SGPT 43 U/L (12-78); AST/SGOT 18 U/L (15-37); BLOOD UREA NITROGEN 12 mg/dl (7-18); BUN/CREATININE RATIO 12.3 (10-20); CALCIUM 8.7 mg/dl (8.5-10.1); CARBON DIOXIDE 27 mmol/L (21-32); CHLORIDE 103 mmol/L (98-107); GLUCOSE 144 mg/dl (70-99); POTASSIUM 4.4 mmol/L (3.5-5.1); SODIUM 137 mmol/L (136-145)
[2017-02-21 12:05] LABS: ALB/GLOB RATIO 1.1 (0.9-2); ALKALINE PHOSPHATASE 84 U/L (45-117); CHOLESTEROL 201 mg/dl (0-200); CHOLESTEROL/HDL RATIO 7.2; HDL CHOLESTEROL 28 mg/dl; LDL CHOLESTEROL CALCULATED 127 mg/dl; TRIGLYCERIDES 231 mg/dl (0-150); VERY LOW DENSITY LIPOPROT CALC 46 mg/dl
== END | disposition home or self-care (01) ==
LOC: C.LABBC 08:13
PROVIDERS: ATTEND Internal Medicine Cardiovascular Disease
DX: I10 Essential (primary) hypertension (principal); E11.8 Type 2 diabetes mellitus with unspecified complications; E78.00 Pure hypercholesterolemia, unspecified

== ENCOUNTER → 2017-03-01 | Outpatient (CLI) | payer BC ==
--- NOTE | 2017-03-08 07:06 | CODING QUERY MEDICAL NECESSITY ---
CQSUPPORTING DIAGNOSIS NEEDED A supporting diagnosis is required for the test/procedure performed on this patient in order for us to be reimbursed by the patient's insurance. Please provide a supporting diagnosis for the following test/procedure listed below next to the test name along with your signature. *If there is no additional diagnosis for this patient that would support the following test/procedure please document that below next to the test/procedure. Test(s)/Procedure(s) that require a supporting diagnosis: DOS 03/01/17 PROSTATE SPECIFIC TEST (PSA) TEST ORDERED BY BERTHA ARNOLD Provider Signature: Date: Thank you Leah Tellez Health Information Management Once completed, please kindly fax back to [phone] For questions please call [phone]
== END | disposition home or self-care (01) ==
LOC: C.LABBC 10:30
PROVIDERS: ATTEND Physician Assistant
DX: Z00.00 Encounter for general adult medical examination without abnormal findings (principal); E11.8 Type 2 diabetes mellitus with unspecified complications

== ENCOUNTER → 2017-03-10 | Outpatient (CLI) | payer BC | END | disposition home or self-care (01) | LOC: C.PATHSPEC 13:34 | PROVIDERS: ATTEND Urology | DX: R97.20 Elevated prostate specific antigen [PSA] (principal) ==

== ENCOUNTER → 2017-03-22 | Outpatient (CLI) | payer BC ==
[~2017-03-22] MED LIST changes: +OPTIRAY 320 IV PRN
--- NOTE | 2017-03-22 13:15 | DIAGNOSTIC IMAGING REPORT ---
ABD/PELVIS IV CONTRAST ONLY CLINICAL HISTORY: 66 years-old Male presenting with prostate cancer. TECHNIQUE: Multidetector CT of the abdomen and pelvis was performed after the administration of intravenous contrast. IV contrast: 93 mL of Optiray 320. A dose lowering technique was used consistent with the principles of ALARA (as low as reasonably achievable). COMPARISON: None. CT DOSE (mGy.cm): The estimated cumulative dose is 919.25 mGy.cm. 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 Lung bases: Minimal dependent changes likely atelectasis. Left atrial enlargement heart. Coronary artery and aortic valve calcification. No pericardial or pleural effusion. Liver: Congenital hypoplasia of the medial segments of the left hepatic lobe. No focal lesion. Patent hepatic vasculature. Biliary: No intrahepatic or extrahepatic biliary ductal dilatation. Normal gallbladder. Pancreas: Moderate parenchymal atrophy. Spleen: Scattered parenchymal calcifications may indicate prior granulomatous disease. Adrenal glands: Normal. Kidneys and ureters: Normal excretion bilaterally. Normal enhancement. No hydronephrosis. Ureters normal bilaterally. Bladder: Mild bladder wall thickening suggested. Pelvic organs: Normal CT appearance of the prostate and seminal vesicles. Bowel: Normal appendix. No bowel obstruction. Peritoneal cavity: No free fluid or intraperitoneal gas. Vasculature: Atherosclerosis of the normal caliber abdominal aorta. IVC patent. Lymph nodes: A low-density ovoid 2.9 cm lesion is noted in the left external iliac region, which has a density of 30-40 Hounsfield units. Pathologically enlarged lymph nodes noted in the left internal iliac region, one measuring 1.7 cm in short axis (series 3 image 448) disease in the second adjacent node measuring 11 mm in the short axis (series 3 image 456). Abdominal wall: Infiltration of the anterior abdominal wall with apparent overlying skin thickening. Musculoskeletal: Multiple sclerotic foci noted in the left acetabulum and left femoral head, some of which may be bone islands. Degenerative changes noted in the lumbar spine. No additional sclerotic lesions appreciated. IMPRESSION: 1. Left internal iliac lymphadenopathy. 2. Low-density 2.9 cm ovoid lesion in the left external iliac region may also represent a pathologically enlarged lymph node, although its low density could suggest an alternative diagnosis such as lymphocele. PET/CT would better demonstrate if this lesion is FDG avid, which is consistent with metastatic lymphadenopathy. 3. Multiple sclerotic foci in the left acetabulum and left femoral head, at least some of which likely represent bone islands. Correlation with nuclear medicine bone scan to exclude blastic metastases recommended. 4. Normal CT appearance of the prostate. Notably prostate MR is more sensitive for detection of abnormalities in the prostate gland. Electronically signed by: Darrell Barrios M.D. 03/22/2017 1:14 PM Dictated Date/Time: 03/22/2017 1:05 PM
--- NOTE | 2017-03-22 16:05 | DIAGNOSTIC IMAGING REPORT ---
BONE SCAN WHOLE BODY CLINICAL HISTORY: C61 Prostate [id number] COMPARISON STUDY: CT scan of the abdomen pelvis dated 03/22/2017 FINDINGS: The patient was injected with 26.2 mCi of technetium 99m MDP. Three-hour delayed images were acquired. There is a focus of increased activity within the left ankle, statistically degenerative/posttraumatic. Plain film correlation could be obtained as deemed clinically indicated. Foci of increased activity within the wrists and shoulders, likely degenerative. There are no areas of increased activity suspicious for skeletal metastasis. IMPRESSION: 1. Unexplained focus of increased activity within the left ankle, statistically degenerative/posttraumatic 2. There are no foci of increased activity viewed as suspicious for skeletal metastasis. Electronically signed by: Carlos Alberto Alvarez M.D. 03/22/2017 4:03 PM Dictated Date/Time: 03/22/2017 4:01 PM
== END | disposition home or self-care (01) ==
LOC: C.NUCL 11:13
PROVIDERS: ATTEND Urology
DX: C61 Malignant neoplasm of prostate (principal); R59.1 Generalized enlarged lymph nodes

== ENCOUNTER 2017-03-24 10:57 | Inpatient (IN) | payer BC, OTHER ==
[~2017-03-24] VITALS: Ht 188 cm; Wt 106.8 kg
[~2017-03-24 10:57] MED LIST changes: -ASPI81TA28 PO; -ATOR-24 PO; -BYS/5 PO; -CALC1TAB9 PO; -CEPH500C PO; -CHOL20007 PO; -CLOP1TAB15 PO; -DGRI240 SC; -ESCI10TA17 PO; -INSDGIPEN SC; -INSU100I; -LISI-729 PO; -LSN25 PO; -NEBI10TA2 PO; -OPTIRAY 320 IV PRN
[2017-03-24] MEDS ORDERED: SODIUM CHLORIDE 0.9% 1000ML 1,000 ML IV STA (11:30)
[2017-03-24 11:44] LABS: BASO % 0.8 %; BASO ABS # 0.05 K/uL (0-0.2); COMPLETE YES; EOS % 1.9 %; HEMATOCRIT 46.7 % (42-52); IG% 0.3 %; LYMPH % 26.1 %; LYMPH ABS # 1.61 K/uL (1.2-3.4); MEAN CELL VOLUME 79.6 fL (80-100); MEAN CORPUSCULAR HEMOGLOBIN 26.1 pg (25-34); MEAN CORPUSCULAR HGB CONC 32.8 g/dl (32-36); MEAN PLATELET VOLUME 9.9 fL (7.4-10.4); MONO % 11.5 %; NEUT % 59.4 %; PLATELET COUNT 261 K/uL (130-400); RED BLOOD COUNT 5.87 M/uL (4.7-6.1); WHITE BLOOD COUNT 6.18 K/uL (4.8-10.8)
--- NOTE | 2017-03-24 11:57 | EMERGENCY ROOM VISIT NOTE ---
History Report prepared by Keya: Joey Tran Under the Supervision of: Dr. Evin Coleman M.D. First contact with patient: 11:22 Chief Complaint: STROKE SYMPTOMS Stated Complaint: STROKE SYMPTOMS History of Present Illness The patient is a 66 year old male who presents to the Emergency Room with complaints of intermittent stroke like symptoms for the past week. The patient states that he gets a headache, bad balance, inability to write or follow commands, and he is having some right hand tingling. Additionally, he states that his eye sight has gotten worse in the last three days. The patient states that the last episode was yesterday, and they usually last from a a few hours to the entire day. The patient states that he was at his urologist for prostate cancer, and they told him to come to the ED for evaluation. The patient states that he is on Plavix for blood clots in his legs, though he does not take it regularly. The patient additionally has had a TIA in the past, and during which he was numb and weak on his right side. The patient currently denies any nausea , vomiting, shortness of breath, chest pain, cough, and congestion. Per the patient's family, the patient has been off balance for a couple months now and was in a boot for 10 months and got out of it two weeks ago. He states he got a toe removed about 2 months ago. Source of History: patient Onset: past week Position: other (global) Quality: other Timing: intermittent Associated Symptoms: + headache, No cough, No chest pain, No SOB, No nausea , No vomiting Note: Associated symptoms: bad balance, inability to write or follow commands, right hand tingling Review of Systems See HPI for pertinent positives and negatives. A total of ten systems were reviewed and were otherwise negative. Past Medical & Surgical Medical Problems: (1) Amputated toe of right foot (2) Diabetes (3) Heart disease (4) Hypertension (5) left occipital stroke (6) Prostate cancer Family History Cancer Diabetes mellitus Heart disease Hypertension Kidney disease Kidney stones Lung disease Social History Smoking Status: Never Smoker Drug Use: none Marital Status: single Occupation Status: retired Current/Historical Medications Scheduled Aspirin (Aspirin Ec), 81 MG PO DAILY Atorvastatin (Lipitor), 40 MG PO DAILY Clopidogrel (Plavix), 75 MG PO QAM Insulin Glargine (Lantus Solostar), 55 UNITS SC QAM Insulin Lispro (Human) (Humalog), HS Metoprolol Tartrate (Lopressor) (Lopressor), 75 MG PO BID Allergies Coded Allergies: No Known Allergies (Verified , 03/24/17) Physical Exam Vital Signs Date Time Temp Pulse Resp B/P (MAP) Pulse Ox O2 Delivery O2 Flow Rate FiO2 03/24/17 15:49 78 20 165/86 99 03/24/17 14:35 71 13 155/115 96 Room Air 03/24/17 12:55 77 18 171/93 99 Room Air 03/24/17 11:42 71 16 181/87 98 Room Air 03/24/17 11:18 75 03/24/17 11:15 98 Room Air 03/24/17 11:01 36.3 78 18 163/80 97 Room Air Physical Exam GENERAL: Awake, alert, well-appearing, in no distress HENT: Dry mucous membranes. Normocephalic, atraumatic. Oropharynx unremarkable. EYES: Normal conjunctiva. Sclera non-icteric. NECK: Supple. No nuchal rigidity. FROM. No JVD. RESPIRATORY: Clear to auscultation. CARDIAC: Regular rate, normal rhythm. Extremities warm and well perfused. Pulses equal. ABDOMEN: Soft, non-distended. No tenderness to palpation. No rebound or guarding. No masses. RECTAL: Deferred. MUSCULOSKELETAL: Chest examination reveals no tenderness. The back is symmetrical on inspection without obvious abnormality. There is no CVA tenderness to palpation. No joint edema. LOWER EXTREMITIES: Calves are equal size bilaterally and non-tender. No edema. No discoloration. NEURO: Has some subtle ataxic movements in the left upper extremity and left lower extremity with alternating palms and heel to brownlee. Otherwise neurologically intact SKIN: No rash or jaundice noted. Medical Decision & Procedures ER Provider Diagnostic Interpretation: Radiology results as stated below per my review and radiologist interpretation: CT OF THE HEAD WITHOUT CONTRAST CLINICAL HISTORY: Ataxia. COMPARISON STUDY: Head CT and MRI of the brain March 04, 2009. CT DOSE: 614.27 mGy.cm TECHNIQUE: Helical axial images of the head were obtained without IV contrast. Automated exposure control was utilized for the study. A dose lowering technique was utilized adhering to the principles of ALARA. FINDINGS: No acute intracranial hemorrhage, midline shift or mass effect is present. A 4 cm x 2.6 cm left occipital lobe hypodensity is present with loss of conley-white differentiation. Basilar cisterns are patent. There are no extra axial collections. Mild white matter hypodensities suggest small vessel disease. There are no significant calvarial abnormalities. IMPRESSION: 4 cm x 2.6 cm left occipital lobe hypodensity suggestive of an acute to subacute infarct. No significant mass effect. No hemorrhage. Electronically signed by: Patricio Santizo M.D. 03/24/2017 12:25 PM Dictated Date/Time: 03/24/2017 12:14 PM CHEST ONE VIEW PORTABLE CLINICAL HISTORY: Chest pain. COMPARISON STUDY: Chest radiograph March 04, 2009. FINDINGS: Lung volumes are at the lower limits of normal. There is no pneumothorax or pleural effusion. No consolidation is identified and there is no evidence of pulmonary edema. Cardiomediastinal silhouette is stable. IMPRESSION: No acute cardiopulmonary findings. Electronically signed by: Patricio Santizo M.D. 03/24/2017 11:56 AM Dictated Date/Time: 03/24/2017 11:55 AM BRAIN COMBO HISTORY: 66 years-old Male acute ataxia with strokelike symptoms. COMPARISON: Head CT of same day, MRI of the brain 03/04/2009 TECHNIQUE: Multiplanar multisequence MRI of the brain was obtained both with and without the use of 10 mL Gadavist. 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 Multifocal restricted diffusion is noted involving the left cerebral hemisphere with a moderate-sized focus seen within the left occipital lobe, 4.0 x 3.3 cm extending into the periventricular white matter adjacent to the posterior horn left lateral ventricle. There is intermediate signal within these distributions on the ADC map. Additional foci of restricted diffusion are present within the left frontal and parietal lobes extending towards the vertex in a watershed distribution. This area also demonstrates increased FLAIR/T2 signal with partial focal areas of sulcal effacement. No associated hemorrhage, significant mass effect or herniation identified. There is mild background cerebral atrophy with scattered chronic microvascular ischemic changes. The orbits are symmetric. There is a small left mastoid effusion. Mild ethmoid sinus disease is noted. Major flow voids at the skull base appear patent. Midline structures including the corpus callosum, brainstem, optic chiasm, pituitary and peroneal glands are unremarkable. No cerebellar tonsillar herniation. IMPRESSION: 1. 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 These findings would suggest left carotid thromboembolic disease. 2. Mild atrophy with background chronic microvascular ischemic changes. 3. Small left mastoid effusion with mild ethmoid sinus disease incidentally noted. The above report was generated using voice recognition software. It may contain grammatical, syntax or spelling errors. Electronically signed by: Ronaldo Bernstein M.D. 03/24/2017 3:57 PM Dictated Date/Time: 03/24/2017 3:48 PM Laboratory Results Test 03/24/17 11:25 Estimated Average Glucose 206 mg/dl Hemoglobin A1c 8.8 % (4.5-5.6) Troponin I < 0.015 ng/ml (0-0.045) Laboratory results reviewed by me Medications Administered Medications (Trade) Dose Ordered Sig/Ashley Route Start Time Stop Time Status Last Admin Dose Admin Sodium Chloride 1,000 ml @ 999 mls/hr Q1H1M STAT IV 03/24/17 11:30 03/24/17 12:30 DC 03/24/17 12:05 999 MLS/HR Lorazepam (Ativan Inj) 0.5 mg NOW STAT IV 03/24/17 14:10 03/24/17 14:12 DC 03/24/17 14:43 0.5 MG ECG Indication: other (stroke symptoms) Rate (beats per minute): 75 Rhythm: normal sinus Findings: no acute ischemic change, other (normal axis) ED Course 1122: The patient was evaluated in room C10. A complete history and physical exam was performed. 1130: Sodium Chloride 1000 ml @ 999 mls/hr IV 1307: I reevaluated the patient, and I updated him on the findings. 1410: Ativan Inj 0.5mg IV 1600: I reevaluated the patient, and I updated him on the treatment plan, and he was agreeable. 1616: Discussed the patient's case with Dr. Shelley. The patient will be evaluated for further treatment and disposition. Medical Decision Triage Nursing notes reviewed. The patient's presentation and history were concerning for stroke, intracranial hemorrhage, complex migraine, locus minores, dehydration, electrolyte abnormality, pneumonia, and UTI. Patient is a 66-year-old gentleman with a past medical history of remote CVA presents emergency department after being referred by his urologist became aware of intermittent stroke like symptoms over the past several weeks including difficulty with balance and intermittent arm numbness or history of present illness. On arrival the patient is in no acute distress, afebrile, stable vital signs. On exam the patient has mild ataxia with the left upper and left lower extremity with difficulty with alternating palms, finger to nose , and [id number]. CT head was done and showed hypodensity consistent with subacute stroke in the setting of the duration of the patient's symptoms. Considering prolonged sx stroke activation note indicated. MRI was performed to further characterize and rule out significant edema. Discussed with the medicine team who will admit the patient for further management and neurology consultation. Medication Reconcilliation Current Medication List: was personally reviewed by me Blood Pressure Screening Patient's blood pressure: Elevated blood pressure managed by the hospitalist Consults Time Called: 1606 Consulting Physician: Dr. Sehlley Returned Call: 1616 Discussed the patient's case with Dr. Shelley. The patient will be evaluated for further treatment and disposition. Impression Primary Impression: Stroke Scribe Attestation The scribe's documentation has been prepared under my direction and personally reviewed by me in its entirety. I confirm that the note above accurately reflects all work, treatment, procedures, and medical decision making performed by me. Departure Information Dispostion Being Evaluated By Hospitalist Referrals No Doctor, Assigned (PCP) Patient Instructions My [facility]
[2017-03-24 12:01] LABS: BLOOD UREA NITROGEN 18 mg/dl (7-18); BUN/CREATININE RATIO 18.1 (10-20); CALCIUM 8.8 mg/dl (8.5-10.1); CARBON DIOXIDE 30 mmol/L (21-32); CHLORIDE 105 mmol/L (98-107); GLUCOSE 191 mg/dl (70-99); POTASSIUM 4.1 mmol/L (3.5-5.1); SODIUM 139 mmol/L (136-145)
--- NOTE | 2017-03-24 12:26 | DIAGNOSTIC IMAGING REPORT ---
CT OF THE HEAD WITHOUT CONTRAST CLINICAL HISTORY: Ataxia. COMPARISON STUDY: Head CT and MRI of the brain March 04, 2009. CT DOSE: 614.27 mGy.cm TECHNIQUE: Helical axial images of the head were obtained without IV contrast. Automated exposure control was utilized for the study. A dose lowering technique was utilized adhering to the principles of ALARA. FINDINGS: No acute intracranial hemorrhage, midline shift or mass effect is present. A 4 cm x 2.6 cm left occipital lobe hypodensity is present with loss of conley-white differentiation. Basilar cisterns are patent. There are no extra axial collections. Mild white matter hypodensities suggest small vessel disease. There are no significant calvarial abnormalities. IMPRESSION: 4 cm x 2.6 cm left occipital lobe hypodensity suggestive of an acute to subacute infarct. No significant mass effect. No hemorrhage. Electronically signed by: Patricio Santizo M.D. 03/24/2017 12:25 PM Dictated Date/Time: 03/24/2017 12:14 PM
[2017-03-24] MEDS ORDERED: LORAZEPAM 2 MG/ML 1 ML VIAL IV STA (14:10)
--- NOTE | 2017-03-24 15:59 | DIAGNOSTIC IMAGING REPORT ---
BRAIN COMBO HISTORY: 66 years-old Male acute ataxia with strokelike symptoms. COMPARISON: Head CT of same day, MRI of the brain 03/04/2009 TECHNIQUE: Multiplanar multisequence MRI of the brain was obtained both with and without the use of 10 mL Gadavist. FINDINGS: The large [id number] deaf teacher images demonstrate no gross abnormality. Multifocal restricted diffusion is noted involving the left cerebral hemisphere with a moderate-sized focus seen within the left occipital lobe, 4.0 x 3.3 cm extending into the periventricular white matter adjacent to the posterior horn left lateral ventricle. There is intermediate signal within these distributions on the ADC map. Additional foci of restricted diffusion are present within the left frontal and parietal lobes extending towards the vertex in a watershed distribution. This area also demonstrates increased FLAIR/T2 signal with partial focal areas of sulcal effacement. No associated hemorrhage, significant mass effect or herniation identified. There is mild background cerebral atrophy with scattered chronic microvascular ischemic changes. The orbits are symmetric. There is a small left mastoid effusion. Mild ethmoid sinus disease is noted. Major flow voids at the skull base appear patent. Midline structures including the corpus callosum, brainstem, optic chiasm, pituitary and peroneal glands are unremarkable. No cerebellar tonsillar herniation. IMPRESSION: 1. 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 These findings would suggest left carotid thromboembolic disease. 2. Mild atrophy with background chronic microvascular ischemic changes. 3. Small left mastoid effusion with mild ethmoid sinus disease incidentally noted. The above report was generated using voice recognition software. It may contain grammatical, syntax or spelling errors. Electronically signed by: Ronaldo Bernstein M.D. 03/24/2017 3:57 PM Dictated Date/Time: 03/24/2017 3:48 PM
[2017-03-24] MEDS ORDERED: ACETAMINOPHEN 325 MG TAB PO PRN (16:30)
[2017-03-24] MEDS ORDERED: MAGNESIUM HYDROXIDE SUSP 30 ML UDC PO PRN (16:30)
[2017-03-24] MEDS ORDERED: ALUMINUM/MAGNESIUM/SIMETH (MAALOX MAX) 30 ML UDC PO PRN (16:30)
[2017-03-24] MEDS ORDERED: POLYETHYLENE (MIRALAX) 17 GM PACK PO PRN (16:30)
[2017-03-24] MEDS ORDERED: PHARMACIST DISCHARGE MED REC CONSULT PRN (16:30)
[2017-03-24] MEDS ORDERED: ONDANSETRON INJ 2 MG/ML 2 ML VIAL IV PRN (16:30)
[2017-03-24] MEDS: SODIUM CHLORIDE 0.9% 1000ML 1,000 ML IV SCH (17:15)
[2017-03-24] MEDS ORDERED: DEXTROSE 50% 50 ML SYR IV PRN (17:30)
[2017-03-24] MEDS ORDERED: GLUCOSE 40% GEL 15 GM TUBE PO PRN (17:30)
[2017-03-24] MEDS ORDERED: GLUCOSE 10 TABS/TUBE PO PRN (17:30)
[2017-03-24] MEDS ORDERED: GLUCAGON FOR INJ 1 MG VIAL SQ PRN (17:30)
--- NOTE | 2017-03-24 18:14 | Medical Student: [facility] ---
Med Student History & Physical Date & Time of Service: Mar 24, 2017 at 17:48 Chief Complaint: Stroke Symptoms Primary Care Physician: No Doctor, Assigned History of Present Illness Source: patient, family, hospital records, EMS This is a 66 year old male who presents to the ED after a urology appointment due to suspected stroke. Patient and family states that he has episodes of headaches, confusion, inability to write, and balance problems for the past week. He also states that his vision is blurry and his right hand is tingling from time to time. These episodes usually last for a few hours up to the entire day. He was recently diagnosed with prostate cancer and had an appointment today where the urologist told him to go to the ED for evaluation. He is currently taking Aspirin 81mg and Plavix for blood clots in legs. Per ED record , he also had a history of TIA in the past during which he was numb and weak on the right side. He currently complains of blurry vision but denies N/V, SOB, chest pain, or congestion. Past Medical/Surgical History Diabetes PAD HTN Prostate Cancer Amputated toe of right foot Family History Cancer Diabetes Heart disease HTN Kidney disease Lung disease Social History Smoking Status: Never Smoker Drug Use: none Marital Status: Occupational Status: retired Immunizations History of Influenza Vaccine: No History of Tetanus Vaccine?: No History of Pneumococcal: No History of Hepatitis B Vaccine: No Allergies Coded Allergies: No Known Allergies (Verified , 03/24/17) Medications Aspirin (Aspirin Ec), 81 MG PO DAILY Atorvastatin (Lipitor), 40 MG PO DAILY Clopidogrel (Plavix), 75 MG PO QAM Insulin Glargine (Lantus Solostar), 55 UNITS SC QAM Insulin Lispro (Human) (Humalog), HS Metoprolol Tartrate (Lopressor) (Lopressor), 75 MG PO BID Review of Systems Constitutional: No fever, No chills Eyes: + worsening of vision ENT: No hearing loss Respiratory: No cough, No sputum Cardiovascular: No chest pain Abdomen: No nausea, No vomiting Musculoskeletal: No joint pain Genitourinary - Male: No dysuria Neurologic: + numbness/tingling (right hand), + balance problems, + problem reported (not follow command, inability to write) Physical Exam Vital Signs (24 Hours) Date Time Temp Pulse Resp B/P (MAP) Pulse Ox O2 Delivery O2 Flow Rate FiO2 8/31/17 17:17 86 21 186/100 97 03/24/17 16:50 81 03/24/17 15:49 78 20 165/86 99 03/24/17 14:35 71 13 155/115 96 Room Air 03/24/17 12:55 77 18 171/93 99 Room Air 03/24/17 11:42 71 16 181/87 98 Room Air 03/24/17 11:18 75 03/24/17 11:15 98 Room Air 03/24/17 11:01 36.3 78 18 163/80 97 Room Air General Appearance: WD/WN, no apparent distress Head: normocephalic Eyes: normal inspection, EOMI, + pertinent finding (abnormal visual field test (left worse than right)) ENT: hearing grossly normal Neck: supple, + pertinent finding (left carotid bruits) Respiratory/Chest: chest non-tender, lungs clear, normal breath sounds, no respiratory distress, no accessory muscle use Cardiovascular: regular rate, rhythm, no edema, no murmur Abdomen/GI: soft Back: normal inspection Extremities/Musculoskelatal: normal inspection, no calf tenderness, no pedal edema, normal range of motion Neurologic/Psych: thread cutter tender II-XII nml as tested, no motor/sensory deficits, alert, normal mood/affect, oriented x 3, + pertinent finding (abnormal visual field test) Diagnostics Laboratory Results Results Past 24 Hours Test 03/24/17 11:25 Range/Units White Blood Count 6.18 4.8-10.8 K/uL Red Blood Count 5.87 4.7-6.1 M/uL Hemoglobin 15.3 14.0-18.0 g/dL Hematocrit 46.7 42-52 % Mean Corpuscular Volume 79.6 80-100 fL Mean Corpuscular Hemoglobin 26.1 25-34 pg Mean Corpuscular Hemoglobin Concent 32.8 32-36 g/dl Platelet Count 261 130-400 K/uL Mean Platelet Volume 9.9 7.4-10.4 fL Neutrophils (%) (Auto) 59.4 % Lymphocytes (%) (Auto) 26.1 % Monocytes (%) (Auto) 11.5 % Eosinophils (%) (Auto) 1.9 % Basophils (%) (Auto) 0.8 % Neutrophils # (Auto) 3.67 1.4-6.5 K/uL Lymphocytes # (Auto) 1.61 1.2-3.4 K/uL Monocytes # (Auto) 0.71 0.11-0.59 K/uL Eosinophils # (Auto) 0.12 0-0.5 K/uL Basophils # (Auto) 0.05 0-0.2 K/uL RDW Standard Deviation 39.0 36.4-46.3 fL RDW Coefficient of Variation 13.5 11.5-14.5 % Immature Granulocyte % (Auto) 0.3 % Immature Granulocyte # (Auto) 0.02 0.00-0.02 K/uL Sodium Level 139 136-145 mmol/L Potassium Level 4.1 3.5-5.1 mmol/L Chloride Level 105 98-107 mmol/L Carbon Dioxide Level 30 21-32 mmol/L Anion Gap 4.0 3-11 mmol/L Blood Urea Nitrogen 18 7-18 mg/dl Creatinine 1.00 0.60-1.40 mg/dl Est Creatinine Clear Calc Drug Dose 94.2 ml/min Estimated GFR () 89.9 Estimated GFR (Non- 77.5 BUN/Creatinine Ratio 18.1 10-20 Random Glucose 191 70-99 mg/dl Calcium Level 8.8 8.5-10.1 mg/dl Troponin I < 0.015 0-0.045 ng/ml CXR normal Impression Assessment and Plan This is 66 year-old male with hx of DM, PAD, [place], HTN and prostate cancer presented with symptoms of stroke for the past week. Ischemic Stroke - Brain CT and MRI 03/24 - ischemic occlusion of PAD in left occipital lobe and multiple punctuate infarcts in the watershed area between the frontal and parietal lobe. - Out of window for tPA - Keep permissive hypertension - IV fluid - Switch Aspirin to 325mg - Continue Plavix at 75mg - Continue Lipitor at 40mg - Will have carotid doppler and echo for thromboembolic disease. - Neurology is consulted DM - Lantus 40mg BID Resuscitation Status FULL RESUSCITATION DVT Prophylaxis other (on Plavix) Note Total Time: Critical Care 30 - 74 minutes
[2017-03-24 18:27] VITALS: BP_SYST 197; BP_SYST 207; BP_DIAS 111; BP_DIAS 94; PULSE 90; TEMP 36.5; O2SAT 97; BMI 30.9
[2017-03-24 19:06] VITALS: BP 189/84; PULSE 92; TEMP 36.8; O2SAT 96
--- NOTE | 2017-03-24 19:20 | History and Physical ---
History & Physical Date & Time of Service: Mar 24, 2017 at 19:13 Chief Complaint: Left Occipital Stroke Primary Care Physician: No Doctor, Assigned History of Present Illness Patient presents to the ER with a few days' worth of intermittent symptoms such as visual changes balance problems weakness some hand and arm tingling on the right. Patient has recently been given news regarding new diagnosis of prostate cancer was seeing his urologist Dr. Morales when he disclose the symptoms Dr. Morales referred him to the ER where an MRI was performed. Patient was found to have a subacute infarct in the left supple lobe, no other additional infarcts were seen is recommended to be admitted for acute stroke In the emergency department the patient did admit to visual field changes but no gross motor changes his family says he hasn't been acting quite right over the last few days. Because the symptoms of been intermittent for the last few days he was felt to be out of the time window for thrombolytic therapy by the emergency room physician Family History Cancer Diabetes mellitus Heart disease Hypertension Kidney disease Kidney stones Lung disease Social History Smoking Status: Never Smoker Drug Use: none Marital Status: Occupational Status: retired Immunizations History of Influenza Vaccine: No History of Tetanus Vaccine?: No History of Pneumococcal: No History of Hepatitis B Vaccine: No Multi-Drug Resistant Organisms History of MDRO: No Allergies Coded Allergies: No Known Allergies (Verified , 03/24/17) Home Medications Scheduled Aspirin (Aspirin Ec), 81 MG PO DAILY Atorvastatin (Lipitor), 40 MG PO DAILY Clopidogrel (Plavix), 75 MG PO QAM Insulin Glargine (Lantus Solostar), 55 UNITS SC QAM Insulin Lispro (Human) (Humalog), HS Metoprolol Tartrate (Lopressor) (Lopressor), 75 MG PO BID Review of Systems ROS: well nourished well developed Patient has had blurry vision and visual field loss No problems with speech or swallowing No palpitations, chest pain or pressure No Wheezing or breathing issues No abdominal pain nausea vomiting diarrhea changes in appetite or weight No burning urine urine frequency or changes in color No focal joint pain or muscle pain No skin rashes or oral lesions No unusual bruising or bleeding No focused back pain or loss of strength, but the patient states may be some right hand tingling No changes in memory but the family has related some confusion Physical Exam Vital Signs Date Time Temp Pulse Resp B/P (MAP) Pulse Ox O2 Delivery O2 Flow Rate FiO2 03/24/17 18:27 36.5 90 17 207/94 97 Room Air 197/111 03/24/17 17:17 86 21 186/100 97 03/24/17 16:50 81 03/24/17 15:49 78 20 165/86 99 03/24/17 14:35 71 13 155/115 96 Room Air 03/24/17 12:55 77 18 171/93 99 Room Air 03/24/17 11:42 71 16 181/87 98 Room Air 03/24/17 11:18 75 03/24/17 11:15 98 Room Air 03/24/17 11:01 36.3 78 18 163/80 97 Room Air General Appearance: WD/WN, + mild distress Head: normocephalic, atraumatic Eyes: PERRL, EOMI ENT: hearing grossly normal, pharynx normal Neck: supple, no JVD, + pertinent finding (left bruit heard) Respiratory/Chest: chest non-tender, lungs clear, normal breath sounds Cardiovascular: regular rate, rhythm, no murmur Abdomen/GI: normal bowel sounds, non tender, soft Back: normal inspection, no CVA tenderness Extremities/Musculoskelatal: normal inspection, no calf tenderness, normal capillary refill Neurologic/Psych: barley steeper II-XII nml as tested, no motor/sensory deficits, alert, oriented x 3, + pertinent finding (does have some dysmetria with his left hand to nose) Skin: normal color, warm/dry, no rash Diagnostics Laboratory Results Results Past 24 Hours Test 03/24/17 11:25 Range/Units White Blood Count 6.18 4.8-10.8 K/uL Red Blood Count 5.87 4.7-6.1 M/uL Hemoglobin 15.3 14.0-18.0 g/dL Hematocrit 46.7 42-52 % Mean Corpuscular Volume 79.6 80-100 fL Mean Corpuscular Hemoglobin 26.1 25-34 pg Mean Corpuscular Hemoglobin Concent 32.8 32-36 g/dl Platelet Count 261 130-400 K/uL Mean Platelet Volume 9.9 7.4-10.4 fL Neutrophils (%) (Auto) 59.4 % Lymphocytes (%) (Auto) 26.1 % Monocytes (%) (Auto) 11.5 % Eosinophils (%) (Auto) 1.9 % Basophils (%) (Auto) 0.8 % Neutrophils # (Auto) 3.67 1.4-6.5 K/uL Lymphocytes # (Auto) 1.61 1.2-3.4 K/uL Monocytes # (Auto) 0.71 0.11-0.59 K/uL Eosinophils # (Auto) 0.12 0-0.5 K/uL Basophils # (Auto) 0.05 0-0.2 K/uL RDW Standard Deviation 39.0 36.4-46.3 fL RDW Coefficient of Variation 13.5 11.5-14.5 % Immature Granulocyte % (Auto) 0.3 % Immature Granulocyte # (Auto) 0.02 0.00-0.02 K/uL Sodium Level 139 136-145 mmol/L Potassium Level 4.1 3.5-5.1 mmol/L Chloride Level 105 98-107 mmol/L Carbon Dioxide Level 30 21-32 mmol/L Anion Gap 4.0 3-11 mmol/L Blood Urea Nitrogen 18 7-18 mg/dl Creatinine 1.00 0.60-1.40 mg/dl Est Creatinine Clear Calc Drug Dose 94.2 ml/min Estimated GFR () 89.9 Estimated GFR (Non- 77.5 BUN/Creatinine Ratio 18.1 10-20 Random Glucose 191 70-99 mg/dl Calcium Level 8.8 8.5-10.1 mg/dl Troponin I < 0.015 0-0.045 ng/ml Diagnostic Radiology MRI showing left occipital stroke CXR normal Normal EKG Impression Assessment and Plan 66-year-old diabetic hypertensive male presents with the few days' worth of stuttering symptoms and a new left occipital strokes seen on MRI Patient will have his aspirin increased from 81-325 continue Plavix statin therapy, his blood pressure is slightly low for permissive hypertension IV fluid will be continued with his metoprolol. We will pursue a carotid Doppler given his bruit heard in the ER the only way this could make sense with if it would have traveled around his [place] of [place] to his posterior circulation neurology will be consulted echocardiogram is pending Regarding his diabetes he notes that he is not on a very compliant diet at home his last A1c was 8.1 in February 2017 will reduce his Lantus dose to 40 twice a day with sliding scale and carb coverage PT/OT/speech evaluation and evaluation for rehabilitation if needed Prostate cancer, his PSA was 50 is having no voiding problems. Follow up as an outpatient DVT prevention is based upon enoxaparin Advanced Directives Existing Living Will: No Existing Power of It Engineer: No VTE Prophylaxis VTE Risk Assessment Done? Y/N: Yes Risk Level: Moderate
[2017-03-24] MEDS: METOPROLOL TARTRATE 25 MG TAB PO SCH (19:33)
[2017-03-24] MEDS: INSULIN ASPART 100 UNITS/ML 3 ML PEN SC SCH (21:23)
[2017-03-24] MEDS: INSULIN GLARGINE SOLOSTAR 100 UNITS/ML 3 ML PEN SC SCH (21:23)
[2017-03-24 22:00] VITALS: BP 155/79; PULSE 74
[2017-03-24 23:45] LABS: URINE APPEARANCE CLEAR (CLEAR); URINE BILIRUBIN NEG (NEG); URINE COLOR YELLOW; URINE NITRITE NEG (NEG); URINE SPECIFIC GRAVITY 1.021 (1.000-1.030); UROBILINOGEN NEG (NEG); ZZUR CULT IF INDIC CLEAN CATCH NO
[2017-03-24 23:59] LABS: MANUAL MICROSCOPIC REQUIRED? NO; REVIEW REQ? NO
[2017-03-25] VITALS (8 sets, daily range): BP systolic 131–175; BP diastolic 66–89; PULSE 60–69; TEMP 36.5–36.8; O2SAT 96–99; Ht 188 cm; Wt 106.8 kg
[2017-03-25] MEDS: SODIUM CHLORIDE 0.9% 1000ML 1,000 ML IV SCH ×3 (05:23→23:15)
[2017-03-25 06:12] LABS: ESTIMATED AVERAGE GLUCOSE 206 mg/dl; HA1C FLAG Normal (Normal)
[2017-03-25 06:47] LABS: BASO % 0.5 %; BASO ABS # 0.04 K/uL (0-0.2); COMPLETE YES; EOS % 1.9 %; HEMATOCRIT 43.6 % (42-52); IG% 0.1 %; LYMPH % 26.3 %; LYMPH ABS # 2.26 K/uL (1.2-3.4); MEAN CELL VOLUME 80.1 fL (80-100); MEAN CORPUSCULAR HEMOGLOBIN 26.3 pg (25-34); MEAN CORPUSCULAR HGB CONC 32.8 g/dl (32-36); MEAN PLATELET VOLUME 10.4 fL (7.4-10.4); MONO % 11.8 %; NEUT % 59.4 %; PLATELET COUNT 255 K/uL (130-400); RED BLOOD COUNT 5.44 M/uL (4.7-6.1); WHITE BLOOD COUNT 8.58 K/uL (4.8-10.8)
--- NOTE | 2017-03-25 07:16 | DIAGNOSTIC IMAGING REPORT ---
CAROTID DOPPLER NECK ART CLINICAL HISTORY: 66 years-old Male presenting with left occipital stroke eval vertebrals also. TECHNIQUE: Real-time grayscale and color and spectral Doppler ultrasound imaging of the bilateral carotid arteries was performed. NASCET criteria was used in evaluating this study. COMPARISON: 03/04/2009. FINDINGS: Right: Common carotid: Atherosclerosis. Peak systolic velocity 71 cm/s. Internal carotid artery: Atherosclerosis along the proximal ICA. Peak systolic velocity 78 cm/s. External carotid artery: Patent. Peak systolic velocity 146 cm/s. Systolic ratio: 1.1. Left: Common carotid: Atherosclerosis. Peak systolic velocity 62 cm/s. Internal carotid artery: Atherosclerosis along the proximal ICA. Peak systolic velocity 54 cm/s. External carotid artery: Patent. Peak systolic velocity 98 cm/s. Systolic ratio: 0.9. Bilateral antegrade flow within the vertebral arteries. Reference ranges: Stenosis measurements are compared to reference velocity parameters. Normal ICA peak systolic velocity less than 125 cm/s. Normal ICA peak systolic velocity to common carotid artery velocity ratio is less than 2: less than 2 equates to less than 50% stenosis, 2-4 equates to 50-69% stenosis, greater than 4 equates to greater than or equal to 70% stenosis. Normal ICA end-diastolic velocity less than 40. Blood pressure Brachial: Right: 180/89 mmHg, Left: 166/84 mmHg. IMPRESSION: 1. Atherosclerosis. 2. No hemodynamically significant stenosis seen within the carotid arteries. Electronically signed by: Darrell Barrios M.D. 03/25/2017 7:15 AM Dictated Date/Time: 03/25/2017 7:13 AM
[2017-03-25 07:25] LABS: BUN/CREATININE RATIO 13.6 (10-20); CALCIUM 8.1 mg/dl (8.5-10.1); CREATININE 0.94 mg/dl (0.60-1.40); POTASSIUM 3.9 mmol/L (3.5-5.1)
[2017-03-25 07:28] LABS: CHOLESTEROL/HDL RATIO 5.5
[2017-03-25] MEDS ORDERED: ASPIRIN 325 MG ECTAB PO SCH (09:00)
[2017-03-25] MEDS ORDERED: OPTIRAY 320 IV PRN (09:00)
--- NOTE | 2017-03-25 09:18 | Discharge Instructions ---
Discharge Instructions Date of Service Mar 25, 2017. Admission Reason for Admission: Left Occipital Stroke Discharge Discharge Diagnosis / Problem: stroke Discharge Goals Goal(s): Diagnostic testing, Therapeutic intervention Activity Recommendations Activity Limitations: as noted below Lifting Limitations: gradually increase as tolerated . Instructions / Follow-Up Instructions / Follow-Up Risk Factors for Stroke: You can reduce your chances of stroke by working with your medical provider to adopt a healthy lifestyle. Some specific ways to lower your chance of stroke are: * If you are a smoker, now is the time to stop smoking cigarettes * If you are diabetic, improve the control of your blood sugars * Avoid excessive amounts of alcohol * Control high blood pressure * Lose weight if you are overweight * Be sure to lead an active lifestyle * Eat a healthy diet low in salt, cholesterol and fat You should know about other risk factors for stroke that you are unable to control. These include: * Age 55 years or older * Male gender * Certain racial groups: , or / * Family History of Stroke, Mini stroke or Heart Attack * Sickle Cell Disease Follow Up: It is important for you to keep your follow up appointments with your medical provider. Current Hospital Diet Patient's current hospital diet: Diabetes Type 2 Diet Discharge Diet Recommended Diet: Regular Diet Pending Studies Studies pending at discharge: no Laboratory Results Hemoglobin A1c Test 03/24/17 11:25 Range/Units Estimated Average Glucose 206 mg/dl Hemoglobin A1c 8.8 H 4.5-5.6 % Lipid Panel Test 03/25/17 06:06 Range/Units Triglycerides Level 173 H 0-150 mg/dl Cholesterol Level 138 0-200 mg/dl HDL Cholesterol 25 mg/dl Cholesterol/HDL Ratio 5.5 LDL Cholesterol, Calculated 78 mg/dl Medical Emergencies . Who to Call and When: Medical Emergencies: Call 911 immediately if you experience any of the following warning signs and symptoms of Stroke: * Sudden numbness or weakness of the face, arm or leg, especially on one side of the body * Sudden confusion, trouble speaking or understanding * Sudden trouble seeing in one or both eyes * Sudden trouble walking, dizziness, loss of balance or coordination * Sudden severe headache with no cause Do not delay calling 911 if you experience any warning signs or symptoms of a stroke. Delay in seeking medical attention may affect what treatments can be given to you. . Non-Emergent Contact Non-Emergency issues call your: Primary Care Provider, Bee Keeper Call Non-Emergent contact if: temperature is above 101, your pain is unusual for you . . "Provider Documentation" section prepared by Ankit Muhammad. . Stroke Core Measures Reason no t-PA for Stroke: Treatment not indicated Reason no antithrom by day 2: Treatment provided - N/A Reason no antithrom at D/C: Treatment provided - N/A Reason no statin at D/C: Treatment provided - N/A Reason no anticoag w/a fib: Treatment not indicated VTE Core Measure Inpt VTE Proph given/why not?: Enoxaparin (Lovenox)SQ
--- NOTE | 2017-03-25 09:21 | Neurology Consultation ---
Neurology Consultation Date of Consultation: Mar 25, 2017. Attending Physician: Ankit Muhammad M.D. Primary Care Physician: No Doctor, Assigned Reason for Consultation: Subacute left occipital stroke History of Present Illness Source: patient, hospital records This is a 66-year-old right-handed male who presents with 3-7 days of symptoms. Patient reports that he has not been feeling right for the last week nonspecifically. He is noted having abnormal headaches for the last week. He does not typically get headaches. In addition has had some nonspecific cognitive /thinking trouble over the last week. He notes visual changes on the right approximately 3-4 days ago. He denies total loss of vision but has trouble making out specifics. He is also noted right hand numbness for the last 3-4 days. He denies any chest pain or shortness of breath. No heart palpitations. No weakness. No facial droop. No changes with his speech. No trouble swallowing. He denies any trouble with balance or walking. No trouble going to the bathroom. It sounds like the patient was supposed to be on aspirin and Plavix for cardiac disease and peripheral vascular disease, but the patient admits that he would take it intermittently. He reports that he go week without taking aspirin and Plavix and then other weeks he may take it for 3-4 days out of the week. MRI of the brain report and images reviewed by myself. Patient has mild to moderate left occipital [employer] territory subacute stroke with some scattered subacute tiny infarcts in the left hemisphere. There is also noted to be some mild chronic subcortical T2 hyperintensities. Ultrasound of the carotids notes some atherosclerotic plaque but no critical stenosis Total cholesterol 138, LDL 78, HDL 25, triglycerides 173. Hemoglobin A1c 8.8 Past Medical/Surgical History Medical Problems: (1) Stroke Status: Acute Past medical history severe for recent diagnosis of prostate cancer Diabetes Dyslipidemia Hypertension History of heart attack Peripheral vascular disease Family History Reports a grandfather with a stroke. Otherwise family history cancer, diabetes, hypertension Social History Patient is normally independent activities of daily living. No tobacco., Occasional alcohol use may be once per month. No illegal drug use. No over-the- counter supplement or stimulant use Drug Use: none Marital Status: Occupation Status: retired Allergies Coded Allergies: No Known Allergies (Verified , 03/24/17) Current Inpatient Medications Current Inpatient Medications Medications (Trade) Dose Ordered Sig/Ashley Route Start Time Stop Time Status Last Admin Dose Admin Atorvastatin Calcium (Lipitor Tab) 40 mg DAILY PO 03/25/17 09:00 04/24/17 08:59 Clopidogrel Bisulfate (plAVix TAB) 75 mg QAM PO 03/25/17 09:00 04/24/17 08:59 Metoprolol Tartrate (Lopressor Tab) 75 mg BID PO 03/24/17 21:00 04/23/17 20:59 03/24/17 19:33 75 MG Miscellaneous Information (Pharmacist Discharge Med Rec Consult) 1 ea UD PRN N/A 03/24/17 16:30 04/23/17 16:29 Acetaminophen (Tylenol Tab) 650 mg Q4H PRN PO 03/24/17 16:30 04/23/17 16:29 Al Hydrox/Mg Hydrox/Simethicone (Maalox Max Susp) 15 ml Q4H PRN PO 03/24/17 16:30 04/23/17 16:29 Magnesium Hydroxide (Milk Of Magnesia Susp) 30 ml Q12H PRN PO 03/24/17 16:30 04/23/17 16:29 Ondansetron HCl (Zofran Inj) 4 mg Q6H PRN IV 03/24/17 16:30 04/23/17 16:29 Polyethylene (Miralax Powder Packet) 17 gm DAILY PRN PO 03/24/17 16:30 04/23/17 16:29 Sodium Chloride 1,000 ml @ 100 mls/hr Q10H IV 03/24/17 17:15 04/23/17 17:14 03/25/17 05:23 100 MLS/HR Insulin Aspart (novoLOG ASPART) SLIDING SCALE PARAMETER ACHS SC 03/24/17 21:00 04/23/17 20:59 03/24/17 21:23 2 UNITS Insulin Glargine (Lantus Solostar Pen) 40 units BID SC 03/24/17 21:00 04/23/17 20:59 03/24/17 21:23 40 UNITS Glucose (Glucose 40% Gel) 15-30 GRAMS 15 GRAMS... UD PRN PO 03/24/17 17:30 04/23/17 17:29 Glucose (Glucose Chew Tab) 4-8 Tablets 4 Tabl... UD PRN PO 03/24/17 17:30 9/30/17 17:29 Dextrose (Dextrose 50% 50ML Syringe) 25-50ML OF 50% DW IV FOR... UD PRN IV 03/24/17 17:30 04/23/17 17:29 Glucagon (Glucagon Inj) 1 mg UD PRN SQ 03/24/17 17:30 04/23/17 17:29 Aspirin (Ecotrin Tab) 81 mg QAM PO 03/26/17 09:00 04/24/17 08:59 Ioversol (Optiray 320) 111 ml UD PRN IV 03/25/17 09:00 03/29/17 08:59 UNV Review of Systems Complete review of systems otherwise negative except for the above noted in history of present illness Physical Exam Vital Signs (Past 24 Hrs): Date Time Temp Pulse Resp B/P (MAP) Pulse Ox O2 Delivery O2 Flow Rate FiO2 03/25/17 07:37 36.5 69 19 172/78 (109) 97 Room Air 03/25/17 04:00 Room Air 03/25/17 03:52 36.7 62 16 131/66 (87) 96 Room Air 03/25/17 00:17 36.8 66 18 162/89 (113) 97 Room Air 03/25/17 00:00 Room Air 03/24/17 22:00 74 155/79 (104) 03/24/17 20:00 Room Air 03/24/17 19:06 36.8 92 18 189/84 (119) 96 Room Air 03/24/17 18:27 36.5 90 17 207/94 97 Room Air 197/111 03/24/17 17:17 86 21 186/100 97 03/24/17 16:50 81 03/24/17 15:49 78 20 165/86 99 03/24/17 14:35 71 13 155/115 96 Room Air 03/24/17 12:55 77 18 171/93 99 Room Air 03/24/17 11:42 71 16 181/87 98 Room Air 03/24/17 11:18 75 03/24/17 11:15 98 Room Air 03/24/17 11:01 36.3 78 18 163/80 97 Room Air Gen.: Patient is alert and sitting in bed, in no acute distress. HEENT: Normocephalic /atraumatic, no scleral icterus Heart: Regular rate and rhythm Extremities: No gross deformities or rashes noted Neurological examination: Mental status: Patient is alert and oriented x3. Attention and concentration normal for the situation. Good fund of knowledge. Able to give her own history. At times slow to answer questions. Speech is fluent without any dysarthria or aphasia noted Cranial nerve: Incomplete right homonymous hemianopsia. Patient was able to see movement of the hand but could not make out fingers. Funduscopic examination was unremarkable. No papilledema. Pupils equally round and reactive to light. Extraocular muscles intact without nystagmus. No facial asymmetry noted. Facial sensation intact. Tongue is midline. Good palatal elevation. Good shoulder shrug bilaterally. Hearing grossly intact to voice. Strength: 5/5 both proximal and distally in all extremities. There is no arm drift. Tone is normal. Sensation: Grossly intact to light touch in all extremities. Deep tendon reflexes: +1 in bilateral biceps, brachioradialis and patellar. Coordination: Patient had good finger to nose without dysmetria Station within the bed was normal Laboratory Results Past 24 Hours: 03/25/17 06:06 Red Blood Count 5.44, Mean Corpuscular Volume 80.1, Mean Corpuscular Hemoglobin 26.3, Mean Corpuscular Hemoglobin Concent 32.8, Mean Platelet Volume 10.4, Neutrophils (%) (Auto) 59.4, Lymphocytes (%) (Auto) 26.3, Monocytes (%) (Auto) 11.8, Eosinophils (%) (Auto) 1.9, Basophils (%) (Auto) 0.5, Neutrophils # (Auto ) 5.10, Lymphocytes # (Auto) 2.26, Monocytes # (Auto) 1.01, Eosinophils # (Auto ) 0.16, Basophils # (Auto) 0.04 03/25/17 06:06 Test 03/24/17 11:25 03/24/17 20:20 03/24/17 23:00 03/25/17 06:06 Estimated Average Glucose 206 mg/dl Hemoglobin A1c 8.8 % (4.5-5.6) Troponin I < 0.015 ng/ml (0-0.045) Bedside Glucose 189 mg/dl (70-99) Urine Color YELLOW Urine Appearance CLEAR (CLEAR) Urine pH 7.0 (4.5-7.5) Urine Specific [place] 1.021 (1.000-1.030) Urine Protein NEG (NEG) Urine Glucose (UA) NEG (NEG) Urine Ketones NEG (NEG) Urine Occult Blood NEG (NEG) Urine Nitrite NEG (NEG) Urine Bilirubin NEG (NEG) Urine Urobilinogen NEG (NEG) Urine Leukocyte Esterase NEG (NEG) White Blood Count 8.58 K/uL (4.8-10.8) Red Blood Count 5.44 M/uL (4.7-6.1) Hemoglobin 14.3 g/dL (14.0-18.0) Hematocrit 43.6 % (42-52) Mean Corpuscular Volume 80.1 fL (80-100) Mean Corpuscular Hemoglobin 26.3 pg (25-34) Mean Corpuscular Hemoglobin Concent 32.8 g/dl (32-36) Platelet Count 255 K/uL (130-400) Mean Platelet Volume 10.4 fL (7.4-10.4) Neutrophils (%) (Auto) 59.4 % Lymphocytes (%) (Auto) 26.3 % Monocytes (%) (Auto) 11.8 % Eosinophils (%) (Auto) 1.9 % Basophils (%) (Auto) 0.5 % Neutrophils # (Auto) 5.10 K/uL (1.4-6.5) Lymphocytes # (Auto) 2.26 K/uL (1.2-3.4) Monocytes # (Auto) 1.01 K/uL (0.11-0.59) Eosinophils # (Auto) 0.16 K/uL (0-0.5) Basophils # (Auto) 0.04 K/uL (0-0.2) RDW Standard Deviation 39.8 fL (36.4-46.3) RDW Coefficient of Variation 13.6 % (11.5-14.5) Immature Granulocyte % (Auto) 0.1 % Immature Granulocyte # (Auto) 0.01 K/uL (0.00-0.02) Anion Gap 4.0 mmol/L (3-11) Est Creatinine Clear Calc Drug Dose 99.8 ml/min Estimated GFR () 96.8 Estimated GFR (Non- 83.6 BUN/Creatinine Ratio 13.6 (10-20) Calcium Level 8.1 mg/dl (8.5-10.1) Triglycerides Level 173 mg/dl (0-150) Cholesterol Level 138 mg/dl (0-200) HDL Cholesterol 25 mg/dl LDL Cholesterol, Calculated 78 mg/dl VLDL Cholesterol, Calculated 35 mg/dl Cholesterol/HDL Ratio 5.5 Imaging As noted above in history of present illness Impression This is a 66-year-old male with subacute left occipital ischemic stroke and scattered tiny subacute ischemic strokes in the left hemisphere. Likely etiology either large vessel embolic versus cardioembolic. Considering recent diagnosis of prostate cancer, cannot rule out a hypercoagulable state. Known stroke risk factors include diabetes, dyslipidemia, hypertension, and a history of [place] and peripheral vascular disease. Residual neurological deficits include mild cognitive changes, headache, right hand sensory changes, and incomplete right homonymous hemianopsia. Plan Continue aspirin 81 mg daily plus Plavix for secondary stroke prevention. The patient was not taking as prescribed and often would go week without taking antiplatelets at all. Continue statin therapy. Again may have not been taking as prescribed I have ordered a CTA of the head and neck to rule out any large vessel etiology or critical stenosis as a cause for stroke. Follow-up echocardiogram results to rule out cardiac embolic sources for stroke. I've instructed the patient not to drive due to incomplete right hemianopsia. Recommend he see an ultrasound technologist as an outpatient with visual field testing. Follow-up PT/OT and speech therapies for discharge planning. Patient may benefit from speech cognitive therapy. Blood pressure recommendations while in hospital 175/95-150/80 Avoid hypotension and dehydration Stroke risk factor modifications and recommendations: Blood pressure recommendations for the first month post hospital discharge 150/ 90-130/80, and after that blood pressure recommendations 130/80-110/70 Total cholesterol goal 100- 200 and LDL goal less than 70 Hemoglobin A1c goal less than 7 Encourage cardiovascular exercise at least 3 times a week for 30 minutes. Follow-up in neurology clinic in 1 month for post stroke hospital follow-up. Recommend Holter monitor as an outpatient to rule out A. fib if no A. fib was seen in the hospital. If there is any questions or concerns, feel free to call/page me. Since the patient has had his symptoms for at least 3 days, if the patient completes his stroke evaluation without any major concerning findings that would keep him the hospital, could reasonably be discharged later today.
[2017-03-25] MEDS: ATORVASTATIN 40 MG TAB PO SCH (09:32)
[2017-03-25] MEDS: METOPROLOL TARTRATE 25 MG TAB PO SCH ×2 (09:32→20:37)
[2017-03-25] MEDS: CLOPIDOGREL BISULFATE 75 MG TAB PO SCH (09:32)
[2017-03-25] MEDS: INSULIN GLARGINE SOLOSTAR 100 UNITS/ML 3 ML PEN SC SCH ×2 (09:34→20:40)
[2017-03-25] MEDS: INSULIN ASPART 100 UNITS/ML 3 ML PEN SC SCH ×4 (09:35→20:39)
--- NOTE | 2017-03-25 11:11 | DIAGNOSTIC IMAGING REPORT ---
HEAD ANGIO WITH CONTRAST CLINICAL HISTORY: 66 years-old Male presenting with left occipital stroke. TECHNIQUE: Multidetector CT angiography of the head was performed after the administration of intravenous contrast. 3-D volumetric and/or maximum intensity projection (MIP) images were subsequently reconstructed for review. IV contrast: 119 mL of Optiray 320. A dose lowering technique was used consistent with the principles of ALARA (as low as reasonably achievable). COMPARISON: CT head performed the previous day. CT DOSE (mGy.cm): The estimated cumulative dose is 635.08 inclusive of the CTA neck. 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 Atherosclerosis of the bilateral cavernous segments of the internal carotid arteries without significant narrowing. However, significant narrowing of the bilateral supraclinoid ICAs, although the carotid termini remain patent. 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 Right middle cerebral artery patent. Left middle cerebral artery patent. However, narrowing is noted at the proximal portion of the A1 segment of the left anterior cerebral artery (series 3 image 69). The posterior circulation demonstrates a right dominant vertebral artery. The left vertebral artery forms the posterior inferior cerebellar artery and does not appear to contribute to the basilar artery. Atherosclerotic narrowing of the proximal P1 segments of the posterior cerebellar arteries suggested. Superior cerebellar arteries patent. Right posterior communicating artery patent. Left posterior communicating artery not visualized, possibly hypoplastic. No evidence of aneurysm or convincing evidence of acute vessel occlusion. The evaluation is slightly degraded due to opacification of veins. Dural venous sinuses patent. IMPRESSION: 1. Multifocal sites of stenosis secondary to atherosclerosis primarily affecting the proximal left anterior cerebral artery and bilateral posterior cerebellar arteries. 2. Variant tangirnaq of Elliott anatomy as above. 3. No evidence of aneurysm or acute vessel occlusion. Electronically signed by: Darrell Barrios M.D. 03/25/2017 11:10 AM Dictated Date/Time: 03/25/2017 11:02 AM
--- NOTE | 2017-03-25 11:27 | DIAGNOSTIC IMAGING REPORT ---
CT ANGIOGRAPHY OF THE NECK WITH CONTRAST CLINICAL HISTORY: Left occipital stroke. Ataxia. COMPARISON STUDY: MRA of the neck March 05, 2009 and carotid ultrasound March 24, 2017. Technique: CT angiography of the carotid and vertebral arteries was obtained using [employer] 320 IV and 3D reconstruction on an independent workstation. NASCET criteria was utilized. A dose lowering technique was utilized adhering to the principles of ALARA. CT DOSE: 635.08 mGy.cm Findings: The caliber of the aortic arch is normal. There is no significant stenosis of the bilateral common carotid and internal carotid arteries. There is moderate plaque within the distal left common carotid and proximal left internal carotid artery which is partially calcified. There is minimal plaque within the proximal right internal carotid artery. There is mild plaque within the proximal left subclavian artery without stenosis. The right vertebral artery is dominant and patent. There is no evidence for dissection within the major vessels of the neck. The CTA of the head will be reported separately. Lung apices are clear. There is no cervical lymphadenopathy or mass. No suspicious skeletal lesions are identified. IMPRESSION: No stenosis within the bilateral internal carotid and common carotid arteries. Moderate plaque at the left carotid bifurcation and mild plaque within the proximal right internal carotid artery. Electronically signed by: Patricio Santizo M.D. 03/25/2017 11:25 AM Dictated Date/Time: 03/25/2017 11:13 AM
[2017-03-25 11:40] LABS: PARTIAL THROMBOPLASTIN RATIO 1.1; PROTHROMBIN TIME (PATIENT) 10.8 SECONDS (9.0-12.0)
[2017-03-25] MEDS: ENOXAPARIN 40 MG/0.4 ML SYR SQ SCH (13:05)
--- NOTE | 2017-03-25 13:15 | Medical Student: [facility] ---
Med Student Progress Note Date of Service Mar 25, 2017. Subjective Pt evaluation today including: conversation w/ patient, conversation w/ family , physical exam, chart review, lab review, review of studies, review of inpatient medication list Pain: none PO Intake: normal Voiding: no voiding problems This is 66 year-old male with history of PAD, IN, DM, HTN, and cholesterolemia presented to ED yesterday with stroke symptoms, which have been going on for the past few days. Since he presented outside of the window for tPA, he is monitored and placed on Aspirin 325mg, Plavix, and Statin to prevent further stroke. Today, he states that he feels fine, still tingling on the right hand and slow thinking. His family at bed side also confirms that. Dr. Jain, neurologist, saw him this morning and made recommendations (see her notes). Physical therapist and speech therapist saw him and felt that he could use some rehab due to his balance and vision. Review of Systems Constitutional: No fever Respiratory: No cough, No sputum Cardiac: No chest pain Abdomen: No pain, No nausea Male : No dysuria Objective Vital Signs Date Time Temp Pulse Resp B/P (MAP) Pulse Ox O2 Delivery O2 Flow Rate FiO2 03/25/17 12:13 36.6 19 152/82 (105) 99 Room Air 03/25/17 08:00 Room Air 03/25/17 07:37 36.5 69 19 172/78 (109) 97 Room Air 03/25/17 04:00 Room Air 03/25/17 03:52 36.7 62 16 131/66 (87) 96 Room Air 03/25/17 00:17 36.8 66 18 162/89 (113) 97 Room Air 03/25/17 00:00 Room Air 03/24/17 22:00 74 155/79 (104) 03/24/17 20:00 Room Air 03/24/17 19:06 36.8 92 18 189/84 (119) 96 Room Air 03/24/17 18:27 36.5 90 17 207/94 97 Room Air 197/111 03/24/17 17:17 86 21 186/100 97 03/24/17 16:50 81 03/24/17 15:49 78 20 165/86 99 03/24/17 14:35 71 13 155/115 96 Room Air 03/24/17 12:55 77 18 171/93 99 Room Air Physical Exam General Appearance: + mild distress Eyes: bilateral eyes normal inspection ENT: hearing grossly normal Neck: supple, + pertinent finding (left carotid bruits) Respiratory/Chest: lungs clear, normal breath sounds, no respiratory distress, no accessory muscle use Cardiovascular: regular rate, rhythm Abdomen: normal bowel sounds Extremities: no pedal edema Neurologic/Psychiatric: senior product consultant II-XII nml as tested, no motor/sensory deficits, alert, normal mood/affect, + abnormal cerebellar tests (dysmetria ) Laboratory Results Last 24 Hours Test 03/24/17 20:20 03/24/17 23:00 03/25/17 06:06 03/25/17 07:03 Bedside Glucose 189 mg/dl 110 mg/dl Urine Color YELLOW Urine Appearance CLEAR Urine pH 7.0 Urine Specific [place] 1.021 Urine Protein NEG Urine Glucose (UA) NEG Urine Ketones NEG Urine Occult Blood NEG Urine Nitrite NEG Urine Bilirubin NEG Urine Urobilinogen NEG Urine Leukocyte Esterase NEG White Blood Count 8.58 K/uL Red Blood Count 5.44 M/uL Hemoglobin 14.3 g/dL Hematocrit 43.6 % Mean Corpuscular Volume 80.1 fL Mean Corpuscular Hemoglobin 26.3 pg Mean Corpuscular Hemoglobin Concent 32.8 g/dl Platelet Count 255 K/uL Mean Platelet Volume 10.4 fL Neutrophils (%) (Auto) 59.4 % Lymphocytes (%) (Auto) 26.3 % Monocytes (%) (Auto) 11.8 % Eosinophils (%) (Auto) 1.9 % Basophils (%) (Auto) 0.5 % Neutrophils # (Auto) 5.10 K/uL Lymphocytes # (Auto) 2.26 K/uL Monocytes # (Auto) 1.01 K/uL Eosinophils # (Auto) 0.16 K/uL Basophils # (Auto) 0.04 K/uL RDW Standard Deviation 39.8 fL RDW Coefficient of Variation 13.6 % Immature Granulocyte % (Auto) 0.1 % Immature Granulocyte # (Auto) 0.01 K/uL Sodium Level 140 mmol/L Potassium Level 3.9 mmol/L Chloride Level 107 mmol/L Carbon Dioxide Level 29 mmol/L Anion Gap 4.0 mmol/L Blood Urea Nitrogen 13 mg/dl Creatinine 0.94 mg/dl Est Creatinine Clear Calc Drug Dose 99.8 ml/min Estimated GFR () 96.8 Estimated GFR (Non- 83.6 BUN/Creatinine Ratio 13.6 Random Glucose 117 mg/dl Calcium Level 8.1 mg/dl Triglycerides Level 173 mg/dl Cholesterol Level 138 mg/dl HDL Cholesterol 25 mg/dl LDL Cholesterol, Calculated 78 mg/dl VLDL Cholesterol, Calculated 35 mg/dl Cholesterol/HDL Ratio 5.5 Test 03/25/17 11:08 Prothrombin Time 10.8 SECONDS Prothromb Time International Ratio 1.0 Activated Partial Thromboplast Time 28.6 SECONDS Partial Thromboplastin Ratio 1.1 Medications Current Inpatient Medications Medications (Trade) Dose Ordered Sig/Ashley Route Start Time Stop Time Status Last Admin Dose Admin Atorvastatin Calcium (Lipitor Tab) 40 mg DAILY PO 03/25/17 09:00 04/24/17 08:59 03/25/17 09:32 40 MG Clopidogrel Bisulfate (plAVix TAB) 75 mg QAM PO 03/25/17 09:00 04/24/17 08:59 03/25/17 09:32 75 MG Metoprolol Tartrate (Lopressor Tab) 75 mg BID PO 03/24/17 21:00 04/23/17 20:59 03/25/17 09:32 75 MG Miscellaneous Information (Pharmacist Discharge Med Rec Consult) 1 ea UD PRN N/A 03/24/17 16:30 04/23/17 16:29 Acetaminophen (Tylenol Tab) 650 mg Q4H PRN PO 03/24/17 16:30 04/23/17 16:29 Al Hydrox/Mg Hydrox/Simethicone (Maalox Max Susp) 15 ml Q4H PRN PO 03/24/17 16:30 04/23/17 16:29 Magnesium Hydroxide (Milk Of Magnesia Susp) 30 ml Q12H PRN PO 03/24/17 16:30 04/23/17 16:29 Ondansetron HCl (Zofran Inj) 4 mg Q6H PRN IV 03/24/17 16:30 04/23/17 16:29 Polyethylene (Miralax Powder Packet) 17 gm DAILY PRN PO 03/24/17 16:30 04/23/17 16:29 Sodium Chloride 1,000 ml @ 100 mls/hr Q10H IV 03/24/17 17:15 04/23/17 17:14 03/25/17 05:23 100 MLS/HR Insulin Aspart (novoLOG ASPART) SLIDING SCALE PARAMETER ACHS SC 03/24/17 21:00 04/23/17 20:59 03/25/17 09:35 5 UNITS Insulin Glargine (Lantus Solostar Pen) 40 units BID SC 03/24/17 21:00 04/23/17 20:59 03/25/17 09:34 40 UNITS Glucose (Glucose 40% Gel) 15-30 GRAMS 15 GRAMS... UD PRN PO 03/24/17 17:30 04/23/17 17:29 Glucose (Glucose Chew Tab) 4-8 Tablets 4 Tabl... UD PRN PO 03/24/17 17:30 04/23/17 17:29 Dextrose (Dextrose 50% 50ML Syringe) 25-50ML OF 50% DW IV FOR... UD PRN IV 03/24/17 17:30 04/23/17 17:29 Glucagon (Glucagon Inj) 1 mg UD PRN SQ 03/24/17 17:30 04/23/17 17:29 Aspirin (Ecotrin Tab) 81 mg QAM PO 03/26/17 09:00 04/24/17 08:59 Ioversol (Optiray 320) 111 ml UD PRN IV 03/25/17 09:00 03/29/17 08:59 Enoxaparin Sodium (Lovenox Inj) 40 mg DAILY@1300 SQ 03/25/17 13:00 04/24/17 12:59 Assessment and Plan Assessment and Plan: This is 66 year-old male with hx of DM, PAD, IN, HTN and prostate cancer presented with symptoms of stroke for the past week. Ischemic Stroke - Brain CT and MRI 03/24 - ischemic occlusion of PAD in left occipital lobe and multiple punctuate infarcts in the watershed area between the frontal and parietal lobe. 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 Switch Aspirin back to 81mg due to pt inconsistency of taking medication. Continue Plavix at 75mg. Continue Lipitor at 40mg - Echo pending DM - Lantus 40mg BID - Diabetes education. Patient does not want to go to [facility] because of bad experience when his mother was there. regional property manager contacted and will look into other rehab facilities options. Discharge planning: rehab hospital
--- NOTE | 2017-03-25 14:25 | Progress Note ---
Subjective Date of Service: Mar 25, 2017. Subjective Patient was seen with his family at the bedside. The family and I have concerns about the patient going to home this is in alignment with physical therapy occupational therapy and speech therapy. The patient however is reluctant. When asked about why he was in the hospital he could not tell me he' s having some difficulty answering questions seemingly to take a long time to find the answer before he says it. He has no focal complaints continues to have visual disturbance Problem List Medical Problems: (1) Stroke Status: Acute Review of Systems Constitutional: No fever, No chills Eyes: + worsening of vision, No eye pain Respiratory: No cough, No shortness of breath, No dyspnea on exertion Cardiac: No chest pain, No orthopnea, No PND Abdomen: No pain, No nausea, No vomiting, No diarrhea Male : No dysuria, No urinary frequency, No incontinence Neurologic: + memory loss, + weakness, + balance problems Psychiatric: + depression symptoms, + anhedonism Objective Vital Signs Date Time Temp Pulse Resp B/P (MAP) Pulse Ox O2 Delivery O2 Flow Rate FiO2 03/25/17 04:00 Room Air 03/25/17 03:52 36.7 62 16 131/66 (87) 96 Room Air 03/25/17 00:17 36.8 66 18 162/89 (113) 97 Room Air 03/25/17 00:00 Room Air 03/24/17 22:00 74 155/79 (104) 03/24/17 20:00 Room Air 03/24/17 19:06 36.8 92 18 189/84 (119) 96 Room Air 03/24/17 18:27 36.5 90 17 207/94 97 Room Air 197/111 03/24/17 17:17 86 21 186/100 97 03/24/17 16:50 81 03/24/17 15:49 78 20 165/86 99 03/24/17 14:35 71 13 155/115 96 Room Air 03/24/17 12:55 77 18 171/93 99 Room Air 03/24/17 11:42 71 16 181/87 98 Room Air 03/24/17 11:18 75 03/24/17 11:15 98 Room Air 03/24/17 11:01 36.3 78 18 163/80 97 Room Air Physical Exam General Appearance: WD/WN, + mild distress Eyes: PERRL, EOMI Neck: supple, no JVD Respiratory/Chest: chest non-tender, lungs clear, normal breath sounds Cardiovascular: regular rate, rhythm, no murmur Abdomen: normal bowel sounds, non tender, soft Extremities: no pedal edema, no calf tenderness Laboratory Results Last 24 Hours Test 03/24/17 11:25 03/24/17 20:20 03/24/17 23:00 03/25/17 06:06 White Blood Count 6.18 K/uL 8.58 K/uL Red Blood Count 5.87 M/uL 5.44 M/uL Hemoglobin 15.3 g/dL 14.3 g/dL Hematocrit 46.7 % 43.6 % Mean Corpuscular Volume 79.6 fL 80.1 fL Mean Corpuscular Hemoglobin 26.1 pg 26.3 pg Mean Corpuscular Hemoglobin Concent 32.8 g/dl 32.8 g/dl Platelet Count 261 K/uL 255 K/uL Mean Platelet Volume 9.9 fL 10.4 fL Neutrophils (%) (Auto) 59.4 % 59.4 % Lymphocytes (%) (Auto) 26.1 % 26.3 % Monocytes (%) (Auto) 11.5 % 11.8 % Eosinophils (%) (Auto) 1.9 % 1.9 % Basophils (%) (Auto) 0.8 % 0.5 % Neutrophils # (Auto) 3.67 K/uL 5.10 K/uL Lymphocytes # (Auto) 1.61 K/uL 2.26 K/uL Monocytes # (Auto) 0.71 K/uL 1.01 K/uL Eosinophils # (Auto) 0.12 K/uL 0.16 K/uL Basophils # (Auto) 0.05 K/uL 0.04 K/uL RDW Standard Deviation 39.0 fL 39.8 fL RDW Coefficient of Variation 13.5 % 13.6 % Immature Granulocyte % (Auto) 0.3 % 0.1 % Immature Granulocyte # (Auto) 0.02 K/uL 0.01 K/uL Sodium Level 139 mmol/L 140 mmol/L Potassium Level 4.1 mmol/L 3.9 mmol/L Chloride Level 105 mmol/L 107 mmol/L Carbon Dioxide Level 30 mmol/L 29 mmol/L Anion Gap 4.0 mmol/L 4.0 mmol/L Blood Urea Nitrogen 18 mg/dl 13 mg/dl Creatinine 1.00 mg/dl 0.94 mg/dl Est Creatinine Clear Calc Drug Dose 94.2 ml/min 99.8 ml/min Estimated GFR () 89.9 96.8 Estimated GFR (Non- 77.5 83.6 BUN/Creatinine Ratio 18.1 13.6 Random Glucose 191 mg/dl 117 mg/dl Estimated Average Glucose 206 mg/dl Hemoglobin A1c 8.8 % Calcium Level 8.8 mg/dl 8.1 mg/dl Troponin I < 0.015 ng/ml Bedside Glucose 189 mg/dl Urine Color YELLOW Urine Appearance CLEAR Urine pH 7.0 Urine Specific [place] 1.021 Urine Protein NEG Urine Glucose (UA) NEG Urine Ketones NEG Urine Occult Blood NEG Urine Nitrite NEG Urine Bilirubin NEG Urine Urobilinogen NEG Urine Leukocyte Esterase NEG Assessment and Plan 66-year-old diabetic hypertensive male presents with the few days' worth of stuttering symptoms and a new left occipital stroke seen on MRI Patient will have his aspirin increased from 81-325 continue Plavix statin therapy, his blood pressure will allow permissive hypertension and cautiously continue metoprolol. Carotid Doppler did not show any significant carotid stenosis CT angiogram shows anatomically smaller left posterior circulation. Regarding his diabetes he notes that he is not on a very compliant diet at home his last A1c was 8.8, he freely admits noncompliance to diet at home will continue Lantus 40 twice a day with sliding scale and carb coverage and diabetic teaching PT/OT/speech evaluation and evaluation strong recommendations for rehabilitation at this point Prostate cancer, his PSA was 50 is having no voiding problems. Follow up as an outpatient DVT prevention is based upon enoxaparin
--- NOTE | 2017-03-25 18:06 | ECHOCARDIOGRAM REPORT ---
*NOTICE TO RECEIVING REPUBLICAN AGENCY This information is strictly Confidential and protected under [place] law. [place] law prohibits you from making any further disclosure of this information unless further disclosure is expressly permitted by the written consent of the person to whom it pertains or is authorized by law. A general authorization for the release of medical or other information is not sufficient for this purpose. Hospital accepts no responsibility if the information is made available to any other person, INCLUDING THE PATIENT. Interpretation Summary * Name: JACINTO HOPPER Study Date: 03/25/2017 06:41 AM BP: 131/66 mmHg * Patient Location: C.2T\S\S241\S\2 HR: 71 * : 1950 (M/d/yyyy) Gender: Male Height: 75 in * Age: 66 yrs Ethnicity: [place] Weight: 240 lb * Ordering Physician: Ankit Muhammad * Referring Physician: Self, Referred * Performed By: Enrique Chacko RCS * * Reason For Study: Cerebral Ischemia/ Embolus * BSA: 2.4 m2 * Moderate left atrial dilatation. * Trace tricuspid regurgitation. * No significant valvular abnormalities. * No cardiac source of emboli noted. * Normal bi-ventricular function * -- Conclusions -- * Aortic valve sclerosis moderate, without significant aortic valvular stenosis. Procedure Details * A saline contrast injection was performed to assess for cardiac shunting. * The injection was performed through an intravenous line in the right arm. * The attending nurse who injected the saline contrast was REGINA, HUNTER. * A total of 18 cc of agitated saline was given. Left Ventricle * Ejection Fraction = 55-60%. Right Ventricle * The right ventricle is normal in size and function. Atria * The left atrium is moderately dilated. * Right atrial size is normal. * No ASD detected; PFO is not assessed. Mitral Valve * There is moderate mitral annular calcification. * There is no mitral valve stenosis. * There is no mitral regurgitation noted. Tricuspid Valve * The tricuspid valve is normal. * There is no tricuspid stenosis. * There is trace tricuspid regurgitation. * Right ventricular systolic pressure is normal. Aortic Valve * The aortic valve is trileaflet. * Aortic valve sclerosis moderate, without significant aortic valvular stenosis. Pulmonic Valve * The pulmonic valve is not well visualized. * The pulmonary valve is inadequately visualized, but the Doppler data is adequate for interpretation. * There is no pulmonic valvular stenosis. * There is no significant pulmonary regurgitation. Great Vessels * The aortic root is normal size. Pericardium/Pleural * There is no pericardial effusion. MMode 2D Measurements and Calculations IVSd 1.1 cm LVIDd 5.1 cm LVIDs 3.8 cm LVPWd 1.1 cm IVS/LVPW 1.0 FS 26.3 % EDV(Teich) 126.3 ml ESV(Teich) 61.6 ml EF(Teich) 51.3 % EDV(cubed) 136.1 ml ESV(cubed) 54.4 ml EF(cubed) 60.0 % LV mass(C)d 224.4 grams LV mass(C)dI 94.6 grams/m\S\2 SV(Teich) 64.7 ml SI(Teich) 27.3 ml/m\S\2 SV(cubed) 81.6 ml SI(cubed) 34.4 ml/m\S\2 Ao root diam 3.5 cm Ao root area 9.5 cm\S\2 LA dimension 4.9 cm LA/Ao 1.4 LVOT diam 2.1 cm LVOT area 3.4 cm\S\2 LVAd ap4 36.0 cm\S\2 LVLd ap4 9.1 cm EDV(MOD-sp4) 116.3 ml EDV(sp4-el) 121.2 ml LVAs ap4 17.2 cm\S\2 LVLs ap4 7.6 cm ESV(MOD-sp4) 32.4 ml ESV(sp4-el) 33.1 ml EF(MOD-sp4) 72.1 % EF(sp4-el) 72.7 % LVAd ap2 29.5 cm\S\2 LVLd ap2 8.2 cm EDV(MOD-sp2) 89.6 ml EDV(sp2-el) 90.6 ml LVAs ap2 19.1 cm\S\2 LVLs ap2 7.6 cm ESV(MOD-sp2) 41.6 ml ESV(sp2-el) 40.4 ml EF(MOD-sp2) 53.5 % EF(sp2-el) 55.4 % LVLd %diff -11.33 % EDV(MOD-bp) 109.4 ml LVLs %diff 0.24 % ESV(MOD-bp) 36.9 ml EF(MOD-bp) 66.3 % SV(MOD-sp4) 83.9 ml SI(MOD-sp4) 35.4 ml/m\S\2 SV(MOD-sp2) 48.0 ml SI(MOD-sp2) 20.2 ml/m\S\2 SV(MOD-bp) 72.5 ml SI(MOD-bp) 30.6 ml/m\S\2 SV(sp4-el) 88.2 ml SI(sp4-el) 37.2 ml/m\S\2 SV(sp2-el) 50.1 ml SI(sp2-el) 21.1 ml/m\S\2 Doppler Measurements and Calculations MV E max destiny 98.5 cm/sec MV A max destiny 51.9 cm/sec MV E/A 1.9 MV dec time 0.15 sec Ao V2 max 124.9 cm/sec Ao max PG 6.2 mmHg Ao max PG (full) 3.7 mmHg JUAN(V,A) 2.2 cm\S\2 JUAN(V,D) 2.2 cm\S\2 LV V1 max PG 2.5 mmHg LV V1 max 79.5 cm/sec TR max destiny 207.7 cm/sec
[2017-03-26 03:25] VITALS: BP 127/74; PULSE 52; TEMP 36.7; O2SAT 98
[2017-03-26 06:34] LABS: BASO % 0.5 %; BASO ABS # 0.04 K/uL (0-0.2); COMPLETE YES; EOS % 2.4 %; HEMATOCRIT 44.1 % (42-52); IG% 0.1 %; LYMPH % 31.6 %; LYMPH ABS # 2.76 K/uL (1.2-3.4); MEAN CELL VOLUME 79.5 fL (80-100); MEAN CORPUSCULAR HEMOGLOBIN 26.5 pg (25-34); MEAN CORPUSCULAR HGB CONC 33.3 g/dl (32-36); MEAN PLATELET VOLUME 10.4 fL (7.4-10.4); MONO % 10.8 %; NEUT % 54.6 %; PLATELET COUNT 259 K/uL (130-400); RED BLOOD COUNT 5.55 M/uL (4.7-6.1); WHITE BLOOD COUNT 8.74 K/uL (4.8-10.8)
[2017-03-26 07:00] LABS: BUN/CREATININE RATIO 12.1 (10-20); CALCIUM 8.4 mg/dl (8.5-10.1); CREATININE 0.94 mg/dl (0.60-1.40); POTASSIUM 3.9 mmol/L (3.5-5.1)
[2017-03-26] MEDS: ATORVASTATIN 40 MG TAB PO SCH (07:49)
[2017-03-26] MEDS: CLOPIDOGREL BISULFATE 75 MG TAB PO SCH (07:49)
[2017-03-26] MEDS: METOPROLOL TARTRATE 25 MG TAB PO SCH (07:49)
[2017-03-26] MEDS: INSULIN GLARGINE SOLOSTAR 100 UNITS/ML 3 ML PEN SC SCH (07:52)
[2017-03-26] MEDS: INSULIN ASPART 100 UNITS/ML 3 ML PEN SC SCH ×2 (08:00→12:10)
[2017-03-26 08:16] VITALS: BP 188/82; PULSE 57; TEMP 36.5; O2SAT 97
[2017-03-26] MEDS ORDERED: ASPIRIN 81 MG ECTAB PO SCH (09:00)
[2017-03-26] MEDS: SODIUM CHLORIDE 0.9% 1000ML 1,000 ML IV SCH (11:45)
[2017-03-26 12:37] VITALS: BP 186/83; PULSE 63; TEMP 36.4; O2SAT 97
--- NOTE | 2017-03-26 13:48 | Discharge Instructions ---
Discharge Instructions Date of Service Mar 26, 2017. Admission Reason for Admission: Left Occipital Stroke Discharge Discharge Diagnosis / Problem: acute left occipital stroke Discharge Goals Goal(s): Decrease discomfort, Improve function, Increase independence, Improve disease control, Improve nutritional status, Learn about illness, Diagnostic testing, Therapeutic intervention, Prevent Disease Progression, Specific goals Activity Recommendations Activity Level: Up Ad Jaz Therapies: Physical Therapy, Occupational Therapy . Additional Information Patient informed of condition: Yes Advance Directives: No DNR: No Level of Care: Acute Rehab Communicable Disease: No Prognosis: Other (guarded) Instructions / Follow-Up Instructions / Follow-Up you have acute new left occipital stroke s you need to continue aspirin and Plavix you need to follow up with neurologist Dr. Renee in 3-4 weeks you have uncontrolled Diabetics need to follow up with pcp you have Prostate cancer, his PSA was 50 , you need to follow up with your urologist - you need to follow up with your primary care physician in 1 week, - take medication as instructed, never overdose or any misuse, or take with alcohol, because misuse of medicine may cause organ damage or , call your primary care physician if have questions of medicaitons. - call your primary care physician OR go to local emergency room if has any fever/chill, chest pain, shortness of breathing, nausea/vomiting/abdominal pain , facial droop/slurry speech/local weakness, or if has any questions. - fall precaution - diet as instructed - you need to follow up with your subspecialist - you should understand that it is important to follow up the above instruction , and "not following the above instruction" may cause delayed or missed care of your medical conditions which may cause permanent organ damage and even . Current Hospital Diet Patient's current hospital diet: Diabetes Type 2 Diet Discharge Diet Recommended Diet: Diabetes Type 2 Diet Procedures Procedures Performed: no Pending Studies Studies pending at discharge: no Laboratory Results Hemoglobin A1c Test 03/24/17 11:25 Range/Units Estimated Average Glucose 206 mg/dl Hemoglobin A1c 8.8 H 4.5-5.6 % Lipid Panel Test 03/25/17 06:06 Range/Units Triglycerides Level 173 H 0-150 mg/dl Cholesterol Level 138 0-200 mg/dl HDL Cholesterol 25 mg/dl Cholesterol/HDL Ratio 5.5 LDL Cholesterol, Calculated 78 mg/dl Medical Emergencies . Who to Call and When: Medical Emergencies: If at any time you feel your situation is an emergency, please call 911 immediately. . Non-Emergent Contact Non-Emergency issues call your: Primary Care Provider, Neurologist, Urologist . . "Provider Documentation" section prepared by [facility]. . Core Measure Problem Core Measures: Stroke Stroke Core Measures Reason no t-PA for Stroke: Treatment not indicated Reason no antithrom by day 2: Treatment provided - N/A Reason no antithrom at D/C: Treatment provided - N/A Reason no statin at D/C: Treatment provided - N/A Reason no anticoag w/a fib: Treatment not indicated
[2017-03-26] MEDS: ENOXAPARIN 40 MG/0.4 ML SYR SQ SCH (13:53)
[2017-03-26] MEDS ORDERED: LSN25 PO (13:59)
[2017-03-26 14:07] VITALS: BP 186/83; PULSE 63; TEMP 36.4; O2SAT 97
[2017-03-26] MEDS ORDERED: LISINOPRIL 2.5 MG TAB PO ONE (14:30)
--- NOTE | 2017-03-26 17:10 | Discharge Summary ---
Discharge Summary Date of Service Mar 26, 2017. Discharge Summary Admission Date: Mar 24, 2017 at 16:34 Discharge Date: Mar 26, 2017 Discharge Disposition: Rehab Principal Diagnosis: acute new left occipital stroke s Problems/Secondary Diagnoses: uncontrolled Diabetics Prostate cancer, his PSA was 50 Immunizations: Have You Had Influenza Vaccine: No History of Tetanus Vaccine?: No History of Pneumococcal: No History of Hepatitis B Vaccine: No Procedures: No Consultations: Neuro Medication Reconciliation New Medications: Lisinopril (Lisinopril) 2.5 Mg Tab 2.5 MG PO DAILY for 30 Days Continued Medications: Aspirin (Aspirin Ec) 81 Mg Tab 81 MG PO DAILY Atorvastatin (Lipitor) 40 Mg Tab 40 MG PO DAILY PT STATING NOT CURRENTLY TAKING Clopidogrel (Plavix) 75 Mg Tab 75 MG PO QAM, TAB Insulin Glargine (Lantus Solostar) 100 Unit/Ml Inj 55 UNITS SC QAM, PEN Insulin Lispro (Human) (Humalog) 100 Unit/Ml Inj HS sliding scale Metoprolol Tartrate (Lopressor) (Lopressor) 50 Mg Tab 75 MG PO BID Discharge Exam minimal tingling numbness in right hand, no any weakness Review of Systems: Constitutional: No fever, No chills, No sweats, No weight loss, No weakness , No fatigue, No problem reported Eyes: No worsening of vision, No eye pain, No redness, No discharge, No diplopia, No problem reported ENT: No hearing loss, No unusual epistaxis, No nasal symptoms, No sore throat, No tinnitus, No dental problems, No trouble swallowing, No problem reported Respiratory: No cough, No sputum, No wheezing, No shortness of breath, No dyspnea on exertion, No dyspnea at rest, No hemoptysis, No problem reported Cardiovascular: No chest pain, No orthopnea, No PND, No edema, No claudication, No palpitations, No problem reported Abdomen: No pain, No nausea, No vomiting, No diarrhea, No constipation, No GI bleeding, No problem reported Musculoskeletal: No joint pain, No muscle pain, No swelling, No calf pain, No problem reported Genitourinary - Male: No hematuria, No dysuria, No urinary frequency, No urinary urgency, No urinary hesitancy, No urinary retention, No urinary incontinence, No penile discharge, No lesions, No impotence, No problem reported Neurologic: + numbness/tingling, No memory loss, No paralysis, No weakness, No vertigo, No balance problems, No problem reported Psychiatric: No depression symptoms, No anhedonism, No anxiety, No insomnia , No substance abuse, No problem reported Endocrine: No fatigue, No excessive thirst, No excessive urination, No problem reported Hematologic / Lymphatic: No abnormal bleeding/bruising, No clotting problems , No swollen lymph nodes, No night sweats, No problem reported Integumentary: No rash, No itch, No new/changing skin lesions, No color change, No bleeding, No problem reported Hospital Course 66-year-old diabetic hypertensive male presents with the few days' worth of stuttering symptoms and a new left occipital stroke seen on MRI He was admitted on April [id number] He has peripheral vascular disease, was stented by Dr. Carrero, time x2, opposed to be on Plavix, however he did not take it a new left occipital stroke Stable/ improved aspirin increased from 81-325 continue Plavix statin therapy, his blood pressure will allow permissive hypertension and cautiously continue metoprolol. Carotid Doppler did not show any significant carotid stenosis CT angiogram shows anatomically smaller left posterior circulation. Uncontrolled diabetes he notes that he is not on a very compliant diet at home his last A1c was 8.8, admited noncompliance to diet at home will continue Lantus 40 twice a day with sliding scale and carb coverage and diabetic teaching PT/OT/speech evaluation and evaluation strong recommendations for rehabilitation at this point Prostate cancer, his PSA was 50 is having no voiding problems. Follow up as an outpatient DVT prevention is based upon enoxaparin With present of , daughter in [place], [place] counseling about his conditions and the [facility] noncompliant patient seems no really take it Patient discharge to [facility] rehabilitation in healthy condition Instructions / Follow-Up you have acute new left occipital stroke s you need to continue aspirin and Plavix you need to follow up with neurologist Dr. Renee in 3-4 weeks you have uncontrolled Diabetics need to follow up with pcp you have Prostate cancer, his PSA was 50 , you need to follow up with your urologist - you need to follow up with your primary care physician in 1 week, - take medication as instructed, never overdose or any misuse, or take with alcohol, because misuse of medicine may cause organ damage or , call your primary care physician if have questions of medicaitons. - call your primary care physician OR go to local emergency room if has any fever/chill, chest pain, shortness of breathing, nausea/vomiting/abdominal pain , facial droop/slurry speech/local weakness, or if has any questions. - fall precaution - diet as instructed - you need to follow up with your subspecialist - you should understand that it is important to follow up the above instruction , and "not following the above instruction" may cause delayed or missed care of your medical conditions which may cause permanent organ damage and even . Total Time Spent: Greater than 30 minutes This includes examination of the patient, discharge planning, medication reconciliation, and communication with other providers. Discharge Instructions Please refer to the electronic Patient Visit Report (Discharge Instructions) for additional information. Additional Copies To Shelli Butler PA-C; Nely Renee D.O.
[2017-03-27] MEDS ORDERED: LISINOPRIL 2.5 MG TAB PO SCH (09:00)
[2017-04-19] MEDS ORDERED: NEBI10TA2 PO (09:56)
[2017-05-02] MEDS ORDERED: LISI-729 PO (09:56)
== END 2017-03-26 15:05 | DRG 66 ==
LOC: C.EDB 10:59 → C.2T 16:34 → ENRESERV 16:48
PROVIDERS: ADMIT Internal Medicine; ATTEND Hospitalist
DX: I63.9 Cerebral infarction, unspecified (principal); E11.65 Type 2 diabetes mellitus with hyperglycemia; C61 Malignant neoplasm of prostate; E78.5 Hyperlipidemia, unspecified; I73.9 Peripheral vascular disease, unspecified; R47.82 Fluency disorder in conditions classified elsewhere; I25.10 Atherosclerotic heart disease of native coronary artery without angina pectoris; I25.2 Old myocardial infarction; Z86.73 Personal history of transient ischemic attack (TIA), and cerebral infarction without residual deficits; Z89.421 Acquired absence of other right toe(s); Z82.3 Family history of stroke; Z82.49 Family history of ischemic heart disease and other diseases of the circulatory system; Z83.3 Family history of diabetes mellitus; Z80.9 Family history of malignant neoplasm, unspecified; Z79.899 Other long term (current) drug therapy; Z79.82 Long term (current) use of aspirin; Z79.02 Long term (current) use of antithrombotics/antiplatelets; Z79.4 Long term (current) use of insulin; R59.1 Generalized enlarged lymph nodes

== ENCOUNTER → 2017-04-25 | Outpatient (CLI) | payer BC ==
[~2017-04-25] MED LIST changes: +ASPI81TA28 PO; +ATOR-24 PO; +CLOP1TAB15 PO; -CZR25 PO; -HMLI SC; -INSDGI SC; +INSDGIPEN SC; +INSU100I; +LISI-729 PO; -METO50TA16 PO; +NEBI10TA2 PO
== END | disposition home or self-care (01) ==
LOC: C.LABBC 15:01
PROVIDERS: ATTEND Physician Assistant
DX: E11.42 Type 2 diabetes mellitus with diabetic polyneuropathy (principal); I63.9 Cerebral infarction, unspecified; H53.461 Homonymous bilateral field defects, right side; F43.20 Adjustment disorder, unspecified

== ENCOUNTER 2017-05-02 11:44 | Emergency (ER) | payer BC ==
[~2017-05-02] VITALS: Ht 188 cm; Wt 110.0 kg
[~2017-05-02 11:44] MED LIST changes: -ASPI81TA28 PO; -ATOR-24 PO; -CLOP1TAB15 PO; -INSDGIPEN SC; -INSU100I
[2017-05-02] MEDS ORDERED: ASPI81TA28 PO (11:52)
[2017-05-02] MEDS ORDERED: INSU100I (11:52)
[2017-05-02] MEDS ORDERED: INSDGIPEN SC (11:52)
[2017-05-02 11:56] VITALS: TEMP 36.5; Ht 188 cm; Wt 110.0 kg
[2017-05-02] MEDS ORDERED: CALC1TAB9 PO (12:31)
[2017-05-02] MEDS ORDERED: BYS/5 PO (12:31)
[2017-05-02] MEDS ORDERED: CHOL20007 PO (12:31)
[2017-05-02] MEDS ORDERED: DGRI240 SC (12:31)
[2017-05-02] MEDS ORDERED: ESCI10TA17 PO (12:31)
--- NOTE | 2017-05-02 13:12 | EMERGENCY ROOM VISIT NOTE ---
History Report prepared by Keya: Joey Tran Under the Supervision of: Dr. Toño Bridges M.D. First contact with patient: 12:13 Chief Complaint: BILATERAL LEG WEAKNESS Stated Complaint: WEAK LEGS, CAN'T WALK, TOE WOUND AND FOOT PROBLEM History of Present Illness The patient is a 66 year old white male with a past medical history of HTN, HLD , diabetes, stroke, and prostate cancer who presents to the ED with a cc of worsening bilateral leg weakness beginning 4-5 weeks ago. Positive arm numbness , global shakiness, and lost/ infected toe nail. Negative recent falls and back pain. The patient is on aspirin and Plavix. He denies any bowel or bladder retention or incontinence. Source of History: patient Onset: 4-5 weeks ago Position: leg (bilateral) Quality: other (weakness) Timing: worsening Associated Symptoms: + numbness Review of Systems See HPI for pertinent positives and negatives. A total of ten systems were reviewed and were otherwise negative. Past Medical & Surgical Medical Problems: (1) Amputated toe of right foot (2) Diabetes (3) Heart disease (4) Hypertension (5) left occipital stroke (6) Prostate cancer Family History Cancer Diabetes mellitus Heart disease Hypertension Kidney disease Kidney stones Lung disease Social History Smoking Status: Never Smoker Drug Use: none Marital Status: Occupation Status: retired Current/Historical Medications Scheduled Aspirin (Aspirin Ec), 81 MG PO DAILY Atorvastatin (Lipitor), 40 MG PO DAILY Calcium Citrate-Vitamin D (Citracal + D3 Maximum), 1 TAB PO DAILY Cephalexin Monohydrate (Keflex), 1 CAP PO BID Cholecalciferol (Vitamin D3), 1 TAB PO DAILY Clopidogrel (Plavix), 75 MG PO QAM Degarelix Acetate (Firmagon), 240 MG SC MONTHLY Escitalopram (Lexapro), 10 MG PO DAILY Insulin Glargine (Lantus Solostar), 55 UNITS SC BID Insulin Lispro (Human) (Humalog), HS Lisinopril (Zestril), 5 MG PO DAILY Nebivolol Hcl (Bystolic), 5 MG PO DAILY Allergies Coded Allergies: No Known Allergies (Verified , 05/02/17) Physical Exam Vital Signs Date Time Temp Pulse Resp B/P (MAP) Pulse Ox O2 Delivery O2 Flow Rate FiO2 05/02/17 16:32 71 18 177/89 98 Room Air 05/02/17 15:47 74 20 185/95 98 Room Air 05/02/17 13:47 64 20 143/74 97 Room Air 05/02/17 13:30 98 Room Air 05/02/17 12:54 66 05/02/17 11:56 36.5 60 18 149/74 98 Room Air Physical Exam GENERAL: Awake, alert, well-appearing, NAD HENT: Normocephalic, atraumatic. EYES: Normal conjunctiva. Sclera non-icteric. NECK: Supple. No nuchal rigidity. FROM. RESPIRATORY: CTAB, no rhonchi, wheezing, crackles CARDIAC: RRR, no MRG ABDOMEN: Soft, NTND, BS+ MSK: No chest wall TTP, no LE edema. No midline back TTP. Redness without calor of the right foot. Second phalanx nail bed is exposed. No purulence. No crepitus. NEURO: GCS 15, CN 2-12 intact, moves all 4s on command. Symmetric strength 5/5 in the lower extremities. Good finger to nose. No dysmetria. No saddle anesthesia or neuro deficits. SKIN: No rash or jaundice noted. Medical Decision & Procedures ER Provider Diagnostic Interpretation: Radiology results as stated below per my review and radiologist interpretation: CT HEAD WITHOUT CONTRAST (CT) CLINICAL HISTORY: Bilateral leg weakness and difficulty walking COMPARISON STUDY: 03/25/2017 TECHNIQUE: Axial CT of the brain is performed from the vertex to the skull base. IV contrast was not administered for this examination. A dose lowering technique was utilized adhering to the principles of ALARA. CT DOSE: 729.78 mGycm FINDINGS: No intra or extra-axial mass lesions are visualized. There is no CT evidence of acute cortical infarction. There is no evidence of midline shift. There is no acute hemorrhage. No calvarial fractures are visualized. There are patchy white matter hypodensities likely on a small vessel basis. There are few scattered deep white matter infarcts. There is an old left occipital lobe infarct. There is no evidence of pathologic ventricular dilatation. There is no evidence of acute sinusitis IMPRESSION: Old post infarct changes. No acute findings. Electronically signed by: Carlos Alberto Alvarez M.D. 05/02/2017 2:38 PM Dictated Date/Time: 05/02/2017 2:35 PM RIGHT FOOT 3 VIEWS CLINICAL HISTORY: Second phalangeal nail bed avulsion. Erythema. FINDINGS: 3 portable views of the right foot are compared to study dated 10/26/2016. The skeletal structures are osteopenic. There is no dilatation of the first distal phalanx. No acute fracture is seen. No bony erosion or periostitis is identified. Arthritic change is seen at the first tarsometatarsal and metatarsophalangeal joints. There is a small dorsal calcaneal enthesophyte. Degenerative spurring is seen along the dorsal aspect of the tarsal bones. There is atherosclerotic calcification of the regional arteries. Mild soft tissue swelling is present in the forefoot. IMPRESSION: 1. No acute bony abnormality is seen in the right foot. 2. Osteopenia, amputation of the first toe, and arthritic change as above. This is similar to previous. 3. Mild soft tissue swelling is noted in the forefoot. Electronically signed by: Tyler Larios M.D. 05/02/2017 1:41 PM Dictated Date/Time: 05/02/2017 1:38 PM CHEST ONE VIEW PORTABLE CLINICAL HISTORY: Weakness. COMPARISON STUDY: 03/24/2017 FINDINGS: The cardiac and mediastinal contours are normal. There is no evidence of focal pulmonary consolidation. There is no evidence of failure. No pleural effusions are visualized.[ IMPRESSION: No active disease in the chest. Electronically signed by: Carlos Alberto Alvarez M.D. 05/02/2017 1:31 PM Dictated Date/Time: 05/02/2017 1:30 PM Laboratory Results 05/02/17 13:41 Red Blood Count 5.65, Mean Corpuscular Volume 78.6, Mean Corpuscular Hemoglobin 26.2, Mean Corpuscular Hemoglobin Concent 33.3, Mean Platelet Volume 10.2, Neutrophils (%) (Auto) 70.6, Lymphocytes (%) (Auto) 18.0, Monocytes (%) (Auto) 9.8, Eosinophils (%) (Auto) 0.9, Basophils (%) (Auto) 0.5, Neutrophils # (Auto) 8.22, Lymphocytes # (Auto) 2.09, Monocytes # (Auto) 1.14, Eosinophils # (Auto) 0.11, Basophils # (Auto) 0.06 05/02/17 13:41 Test 05/02/17 13:30 05/02/17 13:41 Urine Color DK YELLOW Urine Appearance CLEAR (CLEAR) Urine pH 5.5 (4.5-7.5) Urine Specific Street 1.022 (1.000-1.030) Urine Protein NEG (NEG) Urine Glucose (UA) NEG (NEG) Urine Ketones TRACE (NEG) Urine Occult Blood NEG (NEG) Urine Nitrite NEG (NEG) Urine Bilirubin NEG (NEG) Urine Urobilinogen NEG (NEG) Urine Leukocyte Esterase TRACE (NEG) Urine WBC (Auto) 1-5 /hpf (0-5) Urine RBC (Auto) 0-4 /hpf (0-4) Urine Hyaline Casts (Auto) 1-5 /lpf (0-5) Urine Epithelial Cells (Auto) 20-30 /lpf (0-5) Urine Bacteria (Auto) NEG (NEG) White Blood Count 11.64 K/uL (4.8-10.8) Red Blood Count 5.65 M/uL (4.7-6.1) Hemoglobin 14.8 g/dL (14.0-18.0) Hematocrit 44.4 % (42-52) Mean Corpuscular Volume 78.6 fL (80-100) Mean Corpuscular Hemoglobin 26.2 pg (25-34) Mean Corpuscular Hemoglobin Concent 33.3 g/dl (32-36) Platelet Count 277 K/uL (130-400) Mean Platelet Volume 10.2 fL (7.4-10.4) Neutrophils (%) (Auto) 70.6 % Lymphocytes (%) (Auto) 18.0 % Monocytes (%) (Auto) 9.8 % Eosinophils (%) (Auto) 0.9 % Basophils (%) (Auto) 0.5 % Neutrophils # (Auto) 8.22 K/uL (1.4-6.5) Lymphocytes # (Auto) 2.09 K/uL (1.2-3.4) Monocytes # (Auto) 1.14 K/uL (0.11-0.59) Eosinophils # (Auto) 0.11 K/uL (0-0.5) Basophils # (Auto) 0.06 K/uL (0-0.2) RDW Standard Deviation 38.8 fL (36.4-46.3) RDW Coefficient of Variation 13.9 % (11.5-14.5) Immature Granulocyte % (Auto) 0.2 % Immature Granulocyte # (Auto) 0.02 K/uL (0.00-0.02) Prothrombin Time 10.8 SECONDS (9.0-12.0) Prothromb Time International Ratio 1.0 (0.9-1.1) Activated Partial Thromboplast Time 29.1 SECONDS (21.0-31.0) Partial Thromboplastin Ratio 1.1 Anion Gap 7.0 mmol/L (3-11) Est Creatinine Clear Calc Drug Dose 106.3 ml/min Estimated GFR () 102.5 Estimated GFR (Non- 88.5 BUN/Creatinine Ratio 13.8 (10-20) Calcium Level 8.8 mg/dl (8.5-10.1) Magnesium Level 2.1 mg/dl (1.8-2.4) Total Bilirubin 0.7 mg/dl (0.2-1) Direct Bilirubin 0.1 mg/dl (0-0.2) Aspartate Amino Transf (AST/SGOT) 16 U/L (15-37) Alanine Aminotransferase (ALT/SGPT) 31 U/L (12-78) Alkaline Phosphatase 110 U/L (45-117) Troponin I < 0.015 ng/ml (0-0.045) Total Protein 6.7 gm/dl (6.4-8.2) Albumin 3.4 gm/dl (3.4-5.0) Lipase 59 U/L (73-393) Thyroid Stimulating Hormone (TSH) 1.480 uIu/ml (0.300-4.500) Laboratory results reviewed by me Medications Administered Medications (Trade) Dose Ordered Sig/Ashley Route Start Time Stop Time Status Last Admin Dose Admin Sodium Chloride 1,000 ml @ 999 mls/hr Q1H1M STAT IV 05/02/17 13:13 05/02/17 14:13 DC 05/02/17 13:48 999 MLS/HR Cephalexin Monohydrate (Keflex Cap) 500 mg NOW ONCE PO 05/02/17 16:15 05/02/17 16:21 DC 05/02/17 16:19 500 MG ECG Indication: weakness Rate (beats per minute): 64 Rhythm: normal sinus Findings: other (Normal intervals, no STS changes or TWI) ED Course 1246: The patient was evaluated in room C10. A complete history and physical exam was performed. 1451: I reevaluated the patient, and he was doing well, and he states that he does not want inpatient rehab. 1556: I reevaluated the patient, and he told me that he was able to get up and walk. Additionally, the family told me that the patient was seen by a neurologist last week. I discussed the findings and treatment plan with the patient and his family, and they were all agreeable. Medical Decision The patient is a 66 year old white male with a past medical history of HTN, HLD , diabetes, stroke, and prostate cancer who presents to the ED with a cc of worsening bilateral leg weakness beginning 4-5 weeks ago. Positive arm numbness , global shakiness, and lost/ infected toe nail. Negative recent falls and back pain. The patient is on aspirin and Plavix. He denies any bowel or bladder retention or incontinence. Triage Nursing notes reviewed. The patient's presentation and history were concerning for etiologies such as metabolic, infection, hypo/hyperglycemia, electrolyte abnormalities, cardiac sources, intracerebral event, toxicologic, neurologic, as well as others were entertained. Patient was seen and evaluated at the bedside. Patient was complaining of worsening bilateral lower extremity weakness that when ongoing approximate 4 weeks. Patient was unable to complete his outpatient rehabilitation. Patient was evaluated with blood work CT and additional items. Patient had fairly normal blood work. UA was negative. Patient had a negative CT of the brain. This only showed chronic changes. Less likely to be cauda equina or spinal mass or met given that the patient has no complaints of back pain. Patient further denies any saddle anesthesia or bowel or bladder incontinence. Patient had any fevers. Patient did have a right foot film and has had a prior history of osteo-however no osteomyelitis seen at this time. Patient was given Keflex for the cellulitic changes as a precaution given the patient's history of diabetes. Patient does not have an elevated white count and he did not have calor over the right lower extremity. PT did evaluate the patient given the concern for worsening deconditioning. They did recommend inpatient rehabilitation however the patient family declined this at this time. They also did discuss they were seen by neuro last week and had discussed symptoms and at this time neurology did not recommend any further work up and only trx was further PT. Patient was given strict follow-up, discharge, and return precautions. Patient safely d/c'ed to home. PT note: Recommend acute inpt rehab until pt IND with gait and safe to return home. Pt/family ed for importance of not sitting all day in chair and following HEP Medication Reconcilliation Current Medication List: was personally reviewed by me Blood Pressure Screening Patient's blood pressure: Elevated blood pressure Blood pressure disposition: Referred to PCP Impression Primary Impression: Leg weakness Scribe Attestation The scribe's documentation has been prepared under my direction and personally reviewed by me in its entirety. I confirm that the note above accurately reflects all work, treatment, procedures, and medical decision making performed by me. Departure Information Dispostion Home / Self-Care Prescriptions Cephalexin Monohydrate (Keflex) 500 Mg Cap 1 CAP PO BID for 10 Days, #20 CAP Prov: Toño Bridges M.D. 05/02/17 Referrals Shelli Butler PA-C (PCP) Forms HOME CARE DOCUMENTATION FORM, IMPORTANT VISIT INFORMATION Patient Instructions ED Weakness RAINA, My [facility] Additional Instructions Please return to the emergency department if you have worsening or recurrent symptoms not amenable to at-home treatment. Please call for a follow-up appointment with her primary care physician. Please take your medications as prescribed. If you have other concerns and/or complaints please feel free to also call your primary care physician's office or return the ED for further evaluation, management, and treatment. Physical therapy did recommend inpatient rehabilitation. If you do change your mind, please consider calling [facility] to help facilitate this. You have been examined and treated today on an emergency basis only. This is not a substitute for, or an effort to provide, complete comprehensive medical care. It is impossible to recognize and treat all injuries or illnesses in a single emergency department visit. It is therefore important that you follow up closely with [facility]. Call as soon as possible for an appointment. Thank you for your time and consideration. I look forward to speaking with you again soon. Please don't hesitate to call us if you have any questions. Problem Qualifiers Primary Impression: Leg weakness Laterality: bilateral Qualified Codes: R29.898 - Other symptoms and signs involving the musculoskeletal system
[2017-05-02] MEDS ORDERED: SODIUM CHLORIDE 0.9% 1000ML 1,000 ML IV STA (13:13)
[2017-05-02 13:30] VITALS: O2SAT 98
--- NOTE | 2017-05-02 13:32 | DIAGNOSTIC IMAGING REPORT ---
CHEST ONE VIEW PORTABLE CLINICAL HISTORY: Weakness. COMPARISON STUDY: 03/24/2017 FINDINGS: The cardiac and mediastinal contours are normal. There is no evidence of focal pulmonary consolidation. There is no evidence of failure. No pleural effusions are visualized.[ IMPRESSION: No active disease in the chest. Electronically signed by: Carlos Alberto Alvarez M.D. 05/02/2017 1:31 PM Dictated Date/Time: 05/02/2017 1:30 PM
--- NOTE | 2017-05-02 13:42 | DIAGNOSTIC IMAGING REPORT ---
RIGHT FOOT 3 VIEWS CLINICAL HISTORY: Second phalangeal nail bed avulsion. Erythema. FINDINGS: 3 portable views of the right foot are compared to study dated 10/26/2016. The skeletal structures are osteopenic. There is no dilatation of the first distal phalanx. No acute fracture is seen. No bony erosion or periostitis is identified. Arthritic change is seen at the first tarsometatarsal and metatarsophalangeal joints. There is a small dorsal calcaneal enthesophyte. Degenerative spurring is seen along the dorsal aspect of the tarsal bones. There is atherosclerotic calcification of the regional arteries. Mild soft tissue swelling is present in the forefoot. IMPRESSION: 1. No acute bony abnormality is seen in the right foot. 2. Osteopenia, amputation of the first toe, and arthritic change as above. This is similar to previous. 3. Mild soft tissue swelling is noted in the forefoot. Electronically signed by: Tyler Larios M.D. 05/02/2017 1:41 PM Dictated Date/Time: 05/02/2017 1:38 PM
[2017-05-02 14:01] LABS: URINE APPEARANCE CLEAR (CLEAR); URINE BILIRUBIN NEG (NEG); URINE COLOR DK YELLOW; URINE EPITHELIAL CELL AUTO 20-30 /lpf (0-5); URINE NITRITE NEG (NEG); URINE PH 5.5 (4.5-7.5); URINE SPECIFIC GRAVITY 1.022 (1.000-1.030); UROBILINOGEN NEG (NEG)
[2017-05-02 14:04] LABS: MANUAL MICROSCOPIC REQUIRED? NO; REVIEW REQ? NO
[2017-05-02 14:07] LABS: BASO % 0.5 %; BASO ABS # 0.06 K/uL (0-0.2); COMPLETE YES; EOS % 0.9 %; HEMATOCRIT 44.4 % (42-52); IG% 0.2 %; LYMPH ABS # 2.09 K/uL (1.2-3.4); MEAN CELL VOLUME 78.6 fL (80-100); MEAN CORPUSCULAR HEMOGLOBIN 26.2 pg (25-34); MEAN CORPUSCULAR HGB CONC 33.3 g/dl (32-36); MEAN PLATELET VOLUME 10.2 fL (7.4-10.4); MONO % 9.8 %; NEUT % 70.6 %; PLATELET COUNT 277 K/uL (130-400); RED BLOOD COUNT 5.65 M/uL (4.7-6.1); WHITE BLOOD COUNT 11.64 K/uL (4.8-10.8)
[2017-05-02 14:14] LABS: ALT/SGPT 31 U/L (12-78); BLOOD UREA NITROGEN 12 mg/dl (7-18); BUN/CREATININE RATIO 13.8 (10-20); CALCIUM 8.8 mg/dl (8.5-10.1); CARBON DIOXIDE 28 mmol/L (21-32); CHLORIDE 101 mmol/L (98-107); CREATININE 0.89 mg/dl (0.60-1.40); GLUCOSE 173 mg/dl (70-99); MAGNESIUM 2.1 mg/dl (1.8-2.4); SODIUM 136 mmol/L (136-145)
[2017-05-02 14:19] LABS: PARTIAL THROMBOPLASTIN RATIO 1.1; PROTHROMBIN TIME (PATIENT) 10.8 SECONDS (9.0-12.0)
[2017-05-02 14:25] LABS: ALKALINE PHOSPHATASE 110 U/L (45-117); AST/SGOT 16 U/L (15-37)
--- NOTE | 2017-05-02 14:39 | DIAGNOSTIC IMAGING REPORT ---
CT HEAD WITHOUT CONTRAST (CT) CLINICAL HISTORY: Bilateral leg weakness and difficulty walking COMPARISON STUDY: 03/25/2017 TECHNIQUE: Axial CT of the brain is performed from the vertex to the skull base. IV contrast was not administered for this examination. A dose lowering technique was utilized adhering to the principles of ALARA. CT DOSE: 729.78 mGycm FINDINGS: No intra or extra-axial mass lesions are visualized. There is no CT evidence of acute cortical infarction. There is no evidence of midline shift. There is no acute hemorrhage. No calvarial fractures are visualized. There are patchy white matter hypodensities likely on a small vessel basis. There are few scattered deep white matter infarcts. There is an old left occipital lobe infarct. There is no evidence of pathologic ventricular dilatation. There is no evidence of acute sinusitis IMPRESSION: Old post infarct changes. No acute findings. Electronically signed by: Carlos Alberto Alvarez M.D. 05/02/2017 2:38 PM Dictated Date/Time: 05/02/2017 2:35 PM
[2017-05-02] MEDS ORDERED: CLOP1TAB15 PO (15:29)
[2017-05-02] MEDS ORDERED: CEPH500C PO (16:11)
[2017-05-02] MEDS ORDERED: CEPHALEXIN MONOHYDRATE 250 MG CAP PO ONE ×2 (16:15)
[2017-05-02] MEDS ORDERED: ATOR-24 PO (16:28)
[2017-05-02 16:32] VITALS: BP 177/89; PULSE 71; O2SAT 98
== END 2017-05-02 16:34 | disposition home or self-care (01) ==
LOC: C.EDB 11:45 → C.EDC 16:34
DX: M62.81 Muscle weakness (generalized) (principal); I10 Essential (primary) hypertension; E78.5 Hyperlipidemia, unspecified; E11.9 Type 2 diabetes mellitus without complications; Z86.73 Personal history of transient ischemic attack (TIA), and cerebral infarction without residual deficits; Z85.46 Personal history of malignant neoplasm of prostate; Z79.82 Long term (current) use of aspirin; Z79.01 Long term (current) use of anticoagulants; Z79.4 Long term (current) use of insulin; Z89.421 Acquired absence of other right toe(s); Z80.9 Family history of malignant neoplasm, unspecified; Z83.3 Family history of diabetes mellitus; Z82.49 Family history of ischemic heart disease and other diseases of the circulatory system; Z84.1 Family history of disorders of kidney and ureter

== ENCOUNTER → 2017-05-17 | Outpatient (CLI) | payer BC ==
[~2017-05-17] MED LIST changes: +AMOX500T PO; +ASPI81TA28 PO; +ATOR-24 PO; +BYS/5 PO; +CALC1TAB9 PO; +CHOL20007 PO; +CLOP1TAB15 PO; +DGRI240 SC; +ESCI10TA17 PO; +INSDGIPEN SC; +INSU100I; -NEBI10TA2 PO
== END | disposition home or self-care (01) ==
LOC: C.LABSPEC 10:11
PROVIDERS: ATTEND Internal Medicine Endocrinology, Diabetes & Metabolism
DX: L97.519 Non-pressure chronic ulcer of other part of right foot with unspecified severity (principal)

== ENCOUNTER → 2017-05-19 | Outpatient (CLI) | payer BC ==
--- NOTE | 2017-05-19 09:10 | DIAGNOSTIC IMAGING REPORT ---
L-SPINE MIN 4 VIEWS ROUTINE HISTORY: Lumbar pain. Radiculopathy. C61 Prostate [id number] Gait [id number] Back pain COMPARISON: None. FINDINGS: There is no fracture. No subluxation. Moderate degenerative disc change from L3 through S1. No evidence for compression deformity. No lytic or blastic process. IMPRESSION: Moderate degenerative changes low lumbar spine. No acute process. The above report was generated using voice recognition software. It may contain grammatical, syntax or spelling errors. Electronically signed by: Kaiser Mejia M.D. 05/19/2017 9:08 AM Dictated Date/Time: 05/19/2017 9:07 AM
[2017-05-19 11:18] LABS: ALT/SGPT 44 U/L (12-78); BLOOD UREA NITROGEN 17 mg/dl (7-18); BUN/CREATININE RATIO 17.6 (10-20); CARBON DIOXIDE 29 mmol/L (21-32); CHLORIDE 101 mmol/L (98-107); CHOLESTEROL 186 mg/dl (0-200); CREATININE 0.96 mg/dl (0.60-1.40); ESTIMATED AVERAGE GLUCOSE 180 mg/dl; GLUCOSE 86 mg/dl (70-99); HA1C FLAG Normal (Normal); POTASSIUM 4.4 mmol/L (3.5-5.1); SODIUM 138 mmol/L (136-145)
[2017-05-19 11:23] LABS: ALKALINE PHOSPHATASE 117 U/L (45-117); AST/SGOT 23 U/L (15-37); CHOLESTEROL/HDL RATIO 4.9; HDL CHOLESTEROL 38 mg/dl; LDL CHOLESTEROL CALCULATED 113 mg/dl; TRIGLYCERIDES 175 mg/dl (0-150); VERY LOW DENSITY LIPOPROT CALC 35 mg/dl
== END | disposition home or self-care (01) ==
LOC: C.RADBC 08:22
PROVIDERS: ATTEND Physician Assistant
DX: M54.5 Low back pain (principal); M89.8X8 Other specified disorders of bone, other site; C61 Malignant neoplasm of prostate; R26.9 Unspecified abnormalities of gait and mobility; E78.00 Pure hypercholesterolemia, unspecified; I63.9 Cerebral infarction, unspecified; I25.10 Atherosclerotic heart disease of native coronary artery without angina pectoris; E11.42 Type 2 diabetes mellitus with diabetic polyneuropathy; M86.179 Other acute osteomyelitis, unspecified ankle and foot; R97.20 Elevated prostate specific antigen [PSA]; F43.20 Adjustment disorder, unspecified

== ENCOUNTER 2017-05-20 09:40 | Day surgery (SDC) | payer BC ==
[2017-05-20] VITALS (10 sets, daily range): BP systolic 134–176; BP diastolic 63–88; PULSE 55–68; TEMP 36.4–37; O2SAT 95–98; Ht 188 cm; Wt 107.0 kg
[~2017-05-20] VITALS: Ht 188 cm; Wt 107.0 kg
[~2017-05-20 09:40] MED LIST changes: -AMOX500T PO; +CEFAZOLIN 2000 MG/60 ML D5W 60 ML IV SCH; +CEFAZOLIN 2000MG IV PUSH 10 ML IV SCH; -INSU100I; +INSU100I SC; +SODIUM CHLORIDE 0.9% 1000ML IV SCH
[2017-05-20] MEDS ORDERED: AMOX500T PO (11:02)
[2017-05-20 11:08] LABS: CREATININE 0.93 mg/dl (0.60-1.40)
--- NOTE | 2017-05-20 11:42 | History and Physical ---
History & Physical Date of Service May 20, 2017. History & Physical CC: right leg ischemia HPI: Mr. Llanos has developed redness of his right foot and coldness over the last few days. He also has gangrenous changes at the tip of his toe. I could not feel pulses below the groin and he has an index that was done in [facility] of 0.2. The foot appears ischemic at this time. At this point, we recommended that arteriography and possible intervention to increase the flow to the foot for limb salvage. He understands the risks, options and benefits and agrees to go ahead with this procedure. This will be scheduled in the next few days. He denies any other complaints at this time including headaches, fevers, chills, dizziness, chest pain, shortness of breath, abdominal pain, nausea, vomiting, diarrhea, constipation, dysuria, hematuria, or other complaints. ALLERGIES: No known allergies. HOME MEDICATIONS: Reconciled on the chart and include the following: Aspirin, coenzyme Q10, fish oil, gemfibrozil, Humalog mix pen, Lantus, Lipitor, losartan , metoprolol, vitamin B12, vitamin D3. PAST MEDICAL HISTORY: Positive for a cerebrovascular accident, diabetes mellitus, hyperlipidemia, hypertension, and VA. PAST SURGICAL HISTORY: Positive for cardiac catheterization without intervention. Cataract surgery, eye vitrectomy and laser surgery on his eye as well as a tonsillectomy. FAMILY HISTORY: Positive for cancer and stroke in his mother, diabetes mellitus , VA, heart disease, hypertension in his father, diabetes, heart disease, and heart valve replacement and hypertension in his brother. SOCIAL HISTORY: Negative for tobacco, alcohol or drug use. REVIEW OF SYSTEMS: Negative for fatigue, fevers, sweats, weight loss or exercise intolerance, abnormal moles or rashes, vision changes, photophobia, ear pain, sinus problems or sore throat, cough, shortness of breath, hemoptysis , wheezing, chest pain, palpitations, edema or syncope, abdominal pain, nausea, vomiting, diarrhea, constipation, dysuria, hematuria, muscle weakness, headaches , dizziness, numbness or seizures. PHYSICAL EXAM: His vital signs are as follows: Blood pressure 134/70 in the right arm, 136/70 in the left, heart rate 57, oxygen 98% on room air. The patient is 189.7 cm tall and weighs 111.9 kilograms. Constitutional: In general, patient is a mildly chronically ill-appearing middle-aged male in no acute distress. He ambulates without assistance and is active, alert and oriented x4 with normal recent and remote memory. Head is normocephalic, atraumatic. Eyes are EOMI. ENMT exam demonstrates no hearing loss, rhinorrhea or pharyngeal erythema. Neck is supple, nontender with midline trachea without masses or crepitus. Lung exam demonstrates no dyspnea. They are clear to auscultation bilaterally. Cardiovascular exam demonstrates nondisplaced apical impulse with a regular rate and rhythm without murmurs, lifts, heaves, thrills or gallops. Peripheral pulses are full and equal in all extremities unless otherwise noted, specifically they are normal in his carotid, brachial, radial and femoral pulses. His bilateral lower extremity. Distal pulses are nonpalpable, but are present with Doppler, they are monophasic in the right leg and biphasic in the left. He has brisk capillary refill in all toes. No sign of distal ischemia. The patient demonstrates no bruits in his carotid, abdominal or femoral area. Abdomen is soft, nontender with normoactive bowel sounds in all 4 quadrants without guarding or rebound. There was no flank or CVA tenderness. Musculoskeletal exam demonstrates normal tone and strength for age. Bilateral upper extremities demonstrate no cyanosis, edema, varicosities or ulcers. Right lower extremity plantar surface of the distal part of his right great toe does demonstrate a small shallow ulceration into a callus but this is not very deep. There does not appear to be any significant periwound erythema, but there is a significant amount of dry scaly skin there. There is no odor or drainage and there does not appear to be a black eschar or sign of ischemia. Neurologically, patient is grossly intact cranial nerves and grossly intact sensation. ASSESSMENT AND PLAN: Peripheral arterial disease with ischemia and ulceration of the right great toe. Plan: Patient admitted for arteriography of the right lower extremity with possible intervention. I have discussed the risks options and benefits of the procedure with the patient. The patient understands the risks options and benefits and agrees to the procedure.
[2017-05-20] MEDS ORDERED: DEXTROSE 50% 50 ML SYR ONE ×2 (11:59→13:54)
[2017-05-20] MEDS ORDERED: NURSING VERBAL MED ORDER ONE (12:00)
[2017-05-20] MEDS ORDERED: HEPARIN SOD (PORCINE) 1000 UNIT/ML 10 ML VIAL ONE (12:47)
[2017-05-20] MEDS ORDERED: FENTANYL CITRATE INJ 50 MCG/1 ML 2 ML VIAL ONE (12:47)
[2017-05-20] MEDS ORDERED: MIDAZOLAM HCL 1 MG/ML 2ML VIAL ONE (12:47)
--- NOTE | 2017-05-20 13:32 | Procedure Note ---
Pre-Mod Sedation Assessment General Date of Moderate Sedation: May 20, 2017. Vital Signs: Vital Signs Past 12 Hours Date Time Temp Pulse Resp B/P (MAP) Pulse Ox O2 Delivery O2 Flow Rate FiO2 05/20/17 12:42 36.6 55 18 176/88 95 Room Air 05/20/17 10:30 36.6 55 18 176/88 (117) 95 Room Air Pre-Sedation Airway Assessment Oral Cavity: WNL Short Thick Neck: Yes Hx of Sleep Apnea: No Smoking Status: Never Smoker Mallampati Classification: Class I ASA Classification: Class II Notes The planned sedation has been discussed with the patient and consent obtained. I have identified the patient, determined the appropriateness of sedation and have assessed the patient immediately prior to the procedure. All medicine(s) and interventions are by my order.
[2017-05-20] MEDS ORDERED: OXYCODONE/ACETAMINOPHEN 5-325 TAB PO PRN (14:00)
[2017-05-20] MEDS ORDERED: D5W AND 1/2NSS 1,000 ML IV SCH (14:00)
[2017-05-20] MEDS ORDERED: MIDAZOLAM HCL 1 MG/ML 2ML VIAL IV ONE (14:02)
[2017-05-20] MEDS ORDERED: FENTANYL CITRATE INJ 50 MCG/1 ML 2 ML VIAL IV ONE (14:03)
[2017-05-20] MEDS ORDERED: LIDOCAINE HCL 1% 20 ML VIAL INJ ONE (14:10)
[2017-05-20] MEDS ORDERED: HEPARIN SOD (PORCINE) 1000 UNIT/ML 10 ML VIAL IV ONE (14:26)
--- NOTE | 2017-05-20 15:19 | [facility] Post Operative Brief Note ---
Immediate Operative Summary Operative Date May 20, 2017. Pre-Operative Diagnosis Ischemic right leg Post-Operative Diagnosis same Procedure(s) Performed Right Lower Extremity Angiogram, Percutaneous Transluminal Angioplasty Of Right Peroneal Artery, Percutaneous Transluminal Angioplasty and Stenting of Right Popliteal Artery, Mechanical Closure Left Femoral Artery, Moderate Concious Sedation [address] 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
--- NOTE | 2017-05-20 15:21 | Discharge Instructions ---
Discharge Instructions Date of Service May 20, 2017. Visit Reason for Visit: Ischemia Right Foot Discharge Discharge Diagnosis / Problem: Ischemic right leg Discharge Goals Goal(s): Therapeutic intervention Activity Recommendations Activity Limitations: per Instructions/Follow-up section Anesthesia . Post Anesthesia Instructions: If you have had General Anesthesia or IV Sedation: * Do not drive today. * Resume driving when surgeon permits. * Do not make important decisions or sign legal documents today. * Call surgeon for: 1. Temperature elevations greater than 101 degrees F. 2. Uncontrollable pain. 3. Excessive bleeding. 4. Persistent nausea and vomiting. 5. Medication intolerance (nausea, vomiting or rash). * For nausea and vomiting use only clear liquids such as: tea, soda, bouillon until nausea subsides, then gradually increase diet as tolerated. * If you have any concerns or questions, call your surgeon's office. If physician is unavailable and it is an emergency, call 911 or go to the nearest emergency room. . Instructions / Follow-Up Instructions / Follow-Up Call [phone] to schedule a follow up appointment if one not already scheduled. SPECIAL CARE INSTRUCTIONS: Medications: * Continue to take your medications as directed. If you have been given a prescription for Plavix, please fill it immediately and take as directed. Incision Care: * Your puncture site may have some bruising and minor swelling for about one week. * You will have a small dressing covering your puncture site. You may remove the dressing after 24 hours and shower. You may let the warm soapy water run over it, but be sure to dry the puncture site well and keep it dry. * DO NOT IMMERSE THE INCISION IN A TUB/POOL/etc. UNTIL HEALED. * Puncture sites should be kept covered with a band-aid until it begins to heal. Restrictions: * Depending on whether you leg or arm was punctured to access the arteries, you will be required to lay flat, hold your arm still, or both, for about 4 hours after the procedure to prevent bleeding. * Limit your activity for the first 48 hours. You may walk and go up and down steps. Avoid excessive bending or movement at the puncture site. Possible Complications: * Excessive Swelling - after blood flow is improved you may notice increased swelling in the lower legs. This is a normal response. This usually depends on the amount of blockages in the leg, how long they have been there prior to your procedure and how much blood flow was restored. Elevating your legs will help to improve this. Please notify our office ([phone] ) if the swelling does not go away after lying in bed overnight. * Infection/Drainage/Bleeding - Drainage or bleeding from the puncture site should be minimal. If you have excessive bleeding or drainage, call our office ([phone]) right away. * Pain - You may experience some mild pain or soreness at your puncture site. If your pain does not improve, please contact our office ([phone]). Call your doctor and seek emergent treatment if you develop: * Temperature above 101 degrees * Any fever or chills * Any redness or purulent drainage from the puncture site * Any new dusky/blue colored toes or feet with coolness or sharp or aching pain. SKIN IRRITATION: * You may experience some redness and/or swelling in the area where radiation was administered. If any skin irritation occurs, please contact your family physician. FOLLOW UP VISIT: Keep any scheduled doctor appointments. Diet Recommendations Recommended Home Diet: resume previous diet Procedures Procedures Performed: Right Lower Extremity Angiogram, Percutaneous Transluminal Angioplasty Of Right Peroneal Artery, Percutaneous Transluminal Angioplasty and Stenting of Right Popliteal Artery, Mechanical Closure Left Femoral Artery, Moderate Concious Sedation 1402 to Pending Studies Studies pending at discharge: no Medical Emergencies . Who to Call and When: Medical Emergencies: If at any time you feel your situation is an emergency, please call 911 immediately. . Non-Emergent Contact Non-Emergency issues call your: Surgeon . . "Provider Documentation" section prepared by David Carrero. .
[2017-05-20] MEDS ORDERED: IODIXANOL (VISIPAQUE) 270 MG/ML 150ML FLUSH ONE (15:24)
--- NOTE | 2017-05-20 15:41 | Procedure Note ---
Post-Moderate Sedation Plan General Date of Moderate Sedation May 20, 2017. Vital Signs: Vital Signs Past 12 Hours Date Time Temp Pulse Resp B/P (MAP) Pulse Ox O2 Delivery O2 Flow Rate FiO2 05/20/17 15:24 55 16 140/72 98 Room Air 05/20/17 12:42 36.6 55 18 176/88 95 Room Air 05/20/17 10:30 36.6 55 18 176/88 (117) 95 Room Air Review - Discharge Plan Post Moderate Sedation Plan: On clinical assessment, the patient appears to have tolerated the conscious sedation without complications. Patient is recovering as anticipated. Patient will continue to be monitored by nursing and may be discharged when conscious sedation discharge criteria are met.
[2017-05-24] MEDS ORDERED: INSDGIPEN SC (14:21)
[2017-06-09] MEDS ORDERED: SULF800T23 PO (13:32)
[2017-06-17] MEDS ORDERED: LVNIS40 SC (16:35)
--- NOTE | 2017-06-21 08:38 | DIAGNOSTIC IMAGING REPORT ---
DATE OF PROCEDURE: 05/20/2017 PREOPERATIVE DIAGNOSIS: Ischemic right leg. POSTOPERATIVE DIAGNOSIS: Same. PROCEDURES: Right lower extremity arteriography, balloon angioplasty of the right peroneal artery, percutaneous transluminal angioplasty and stenting of the right popliteal artery and mechanical closure of the left common femoral artery with moderate sedation, 1402 to 1524. SURGEON: David Carrero MD. ANESTHETIC: Local with sedation. PROCEDURE INDICATIONS: The patient is a 67-year-old gentleman with severe ischemia of the right lower extremity. Arteriography and possible intervention was recommended. He understood the risks, options and benefits and agreed to have this procedure. PROCEDURE IN DETAIL: The patient was taken to the angiogram suite and placed in a supine position. After groins were prepped and draped in a sterile manner, local anesthetic was administered. Percutaneous puncture was made on the left common femoral artery and an 0.035 wire was inserted. A 5-Cymro sheath was inserted over the wire. Next, the 0.035 wire was inserted. A rim catheter was inserted. Hand injection was performed which showed the common iliac arteries, distal aorta and external iliac arteries are widely patent. A rim catheter was then used to cannulate the right side. Arteriography was then performed. This showed the common femoral, superficial femoral artery and profunda femoral arteries to be patent. The superficial femoral artery was patent down to the knee. At that level, there was an occlusion with reconstitution of the peroneal artery distally. Using an 0.035 wire and Quick-Cross catheter, the lesion was traversed. We then used a stiffened wire, this was exchanged for the Quick-Cross. The 5 Cymro sheath was then exchanged for a 6-Cymro destination. Once this was done, a 3 x 200 [place] balloon was then used. The perineal area was then dilated. There was still residual stenosis seen. We then used a 4 x 60 [place]. Again, the peroneal artery appeared to be patent at that time. We then used a 5 x 100 to dilate the popliteal artery. Good results were seen. Good flow was noted. There still was an area of stenosis and flap in the popliteal so we decided to stent this with a 5 mm x 10 cm Viabahn. This was deployed without difficulty. Excellent results were seen. Good flow was seen through the peroneal artery at that point. At that point, the destination was pulled back to the left side. Hand injection showed the puncture site to be anterior in the common femoral artery. We then closed the puncture using the Star closure device. Adequate hemostasis was then seen. Sterile dressings were applied to the wound. The patient left the angio suite in good condition and tolerated the procedure well.
== END 2017-05-20 18:45 | disposition home or self-care (01) ==
LOC: C.ACU 09:40
PROVIDERS: ATTEND Surgery Vascular Surgery
DX: I99.8 Other disorder of circulatory system (principal); I73.9 Peripheral vascular disease, unspecified; L97.519 Non-pressure chronic ulcer of other part of right foot with unspecified severity; E11.9 Type 2 diabetes mellitus without complications; E78.5 Hyperlipidemia, unspecified; I10 Essential (primary) hypertension; I25.2 Old myocardial infarction; Z98.49 Cataract extraction status, unspecified eye; Z90.89 Acquired absence of other organs; Z98.890 Other specified postprocedural states; Z79.82 Long term (current) use of aspirin; Z79.4 Long term (current) use of insulin; Z79.899 Other long term (current) drug therapy

== ENCOUNTER → 2017-06-10 | Outpatient (CLI) | payer BC ==
[~2017-06-10] MED LIST changes: -ATOR-24 PO; -CEFAZOLIN 2000 MG/60 ML D5W 60 ML IV SCH; -CEFAZOLIN 2000MG IV PUSH 10 ML IV SCH; +INSU100I; -INSU100I SC; +OPTIRAY 320 IV PRN; -SODIUM CHLORIDE 0.9% 1000ML IV SCH; +SULF800T23 PO
--- NOTE | 2017-06-10 14:42 | DIAGNOSTIC IMAGING REPORT ---
L LOWER EXTREMITY WITH CLINICAL HISTORY: 67 years-old Male presenting with L FT 2ND TOE NON HEALING WOUND - BONE EXPOSED. TECHNIQUE: Multidetector CT of the left foot was performed without the use of intravenous contrast. IV contrast: None. A dose lowering technique was used consistent with the principles of ALARA (as low as reasonably achievable). COMPARISON: None. CT DOSE (mGy.cm): The estimated cumulative dose is 81.86. FINDINGS: Rag Sorter topogram: Unremarkable. Absence of the distal phalanx of the first toe, which may be postsurgical. The reported nonhealing wound at the left second toe is likely located along the dorsal aspect of the distal phalanx as the underlying distal phalanx appears exposed without overlying subcutaneous fat. No gross evidence of osseous erosion or periosteal reaction. No focal fluid collection. No acute fracture or malalignment. Mild diffuse subcutaneous edema noted throughout the foot. Atherosclerosis. Diffuse muscle atrophy noted. IMPRESSION: 1. Apparent soft tissue defect overlies the distal phalanx of the second toe. The soft tissue defect to the level of the underlying cortex presumably implies osteomyelitis, although no CT evidence of osseous erosion or periostitis. If there is clinical concern, noncontrast MR could be obtained. Electronically signed by: Darrell Barrios M.D. 06/10/2017 2:41 PM Dictated Date/Time: 06/10/2017 2:36 PM
== END | disposition home or self-care (01) ==
LOC: C.CTS 13:58
PROVIDERS: ATTEND Physician Assistant
DX: S91.105A Unspecified open wound of left lesser toe(s) without damage to nail, initial encounter (principal)

== ENCOUNTER 2017-06-16 11:50 | Observation (INO) | payer BC ==
[~2017-06-16] VITALS: Ht 188 cm; Wt 104.0 kg
[~2017-06-16 11:50] MED LIST changes: -INSU100I; +INSU100I SC; -OPTIRAY 320 IV PRN
[2017-06-16] MEDS ORDERED: SODIUM CHLORIDE 0.9% 1000ML 1,000 ML IV STA (12:18)
[2017-06-16] MEDS ORDERED: METOCLOPRAMIDE HCL INJ 5 MG/ML 2 ML VIAL IV STA (12:18)
[2017-06-16 12:28] LABS: ISTAT CREATININE 1.3 mg/dl (0.6-1.3); ISTAT HEMOGLOBIN 16.7 g/dl (14.0-18.0); ISTAT IONIZED CALCIUM 1.19 mmol/l (1.12-1.32)
--- NOTE | 2017-06-16 12:39 | DIAGNOSTIC IMAGING REPORT ---
CHEST ONE VIEW PORTABLE CLINICAL HISTORY: Pain, radiating to the abdomen. COMPARISON STUDY: 05/02/2017 FINDINGS: The cardiac and mediastinal contours are normal. There is no evidence of focal pulmonary consolidation. There is no evidence of failure. No pleural effusions are visualized.[ There is no free intraperitoneal air. IMPRESSION: No active disease in the chest. Electronically signed by: Carlos Alberto Alvarez M.D. 06/16/2017 12:38 PM Dictated Date/Time: 06/16/2017 12:37 PM
[2017-06-16] MEDS ORDERED: ATOR-26 PO (12:41)
[2017-06-16] MEDS ORDERED: ACET-1256 PO (12:41)
--- NOTE | 2017-06-16 12:43 | EMERGENCY ROOM VISIT NOTE ---
History Report prepared by Keya: Prateek Rivas Under the Supervision of: Dr. Evin Coleman M.D. First contact with patient: 12:06 Chief Complaint: STROKE SYMPTOMS Stated Complaint: STROKE LIKE SYMPTOMS History of Present Illness The patient is a 67 year old male who presents to the Emergency Room with complaints of a generalized headache that began last night. He took to Tylenol with minimal improvement. The patient complains of increased numbness of right arm and right leg. The patient has a recent history of a stroke in February which left him with right arm and leg weakness that has since progressively worsened. The patient also complains of back pain and has a history of prostate cancer. He is currently not on chemotherapy because he is is not physically stable. The patient has stopped taking his blood thinners (Aspirin, Plavix) on 06/14/2017 due to an upcoming surgery to remove his right 3rd toe. The patient denies nausea, vomiting, fevers, cough, and chills. He endorses a headache as a 5/10, lightheadedness, and diarrhea 2 weeks ago. He had recent vascular surgery on his right leg. Source of History: patient, family Onset: Last night Position: head Symptom Intensity: 5/10 Timing: worsening Associated Symptoms: + headache, + back pain, + numbness (right arm and leg) , No fevers, No chills, No cough, No nausea, No vomiting Review of Systems See HPI for pertinent positives and negatives. A total of ten systems were reviewed and were otherwise negative. Past Medical & Surgical Medical Problems: (1) Amputated toe of right foot (2) Diabetes (3) Heart disease (4) Hypertension (5) left occipital stroke (6) Prostate cancer (7) Stroke-like symptoms Family History Cancer Diabetes mellitus Heart disease Hypertension Kidney disease Kidney stones Lung disease Social History Smoking Status: Never Smoker Drug Use: none Marital Status: Occupation Status: retired Current/Historical Medications Scheduled Aspirin (Aspirin Ec), 81 MG PO QAM Atorvastatin (Lipitor), 80 MG PO QPM Calcium Citrate-Vitamin D (Citracal + D3 Maximum), 1 TAB PO QAM Cholecalciferol (Vitamin D3), 2,000 UNITS PO BID Clopidogrel (Plavix), 75 MG PO QAM Degarelix Acetate (Firmagon), 240 MG SC MONTHLY Escitalopram (Lexapro), 10 MG PO QAM Insulin Glargine (Lantus Solostar), 48 UNITS SC QAM Insulin Glargine (Lantus Solostar), 48 UNITS SC HS Insulin Lispro (Human) (Humalog), 1 DOSE SC ACHS Lisinopril (Zestril), 5 MG PO QAM Nebivolol Hcl (Bystolic), 5 MG PO QPM Sulfa/Trimethoprim (Bactrim Ds 800MG/160MG), 1 TAB PO BID Scheduled PRN Acetaminophen (Tylenol), 500 MG PO UD PRN for Pain Allergies Coded Allergies: No Known Allergies (Verified , 06/16/17) Physical Exam Vital Signs Date Time Temp Pulse Resp B/P (MAP) Pulse Ox O2 Delivery O2 Flow Rate FiO2 06/16/17 15:07 36.8 66 18 153/69 96 Room Air 06/16/17 13:32 70 20 132/66 96 Room Air 06/16/17 12:30 62 20 151/79 96 Room Air 06/16/17 12:05 Room Air 06/16/17 12:04 70 06/16/17 12:02 72 20 165/78 96 Room Air 06/16/17 11:51 36.7 69 18 131/78 95 Room Air Physical Exam GENERAL: Awake, alert, fatigued appearing, in no distress HENT: Normocephalic, atraumatic. Oropharynx unremarkable. Dry mucous membranes EYES: Normal conjunctiva. Sclera non-icteric. NECK: Supple. No nuchal rigidity. FROM. No JVD. RESPIRATORY: Clear to auscultation. CARDIAC: Regular rate, normal rhythm. Extremities warm and well perfused. Pulses equal. ABDOMEN: Soft, non-distended. No tenderness to palpation. No rebound or guarding. No masses. 3 cm region of ecchymosis of right upper quadrant RECTAL: Deferred. MUSCULOSKELETAL: Chest examination reveals no tenderness. The back is symmetrical on inspection without obvious abnormality. There is no CVA tenderness to palpation. No joint edema. LOWER EXTREMITIES: Calves are equal size bilaterally and non-tender. No edema. No discoloration. 3rd phalanx of right foot with ulceration and excoriation; 4/ 5 strength of right lower extremity; all else 5/5 NEURO: Normal sensorium. No sensory or motor deficits noted. Mild right upper extremity pronator drift; intact cerebellar with [id number] SKIN: No rash or jaundice noted. Medical Decision & Procedures ER Provider Diagnostic Interpretation: Radiology results as stated below per my review and radiologist interpretation: CHEST ONE VIEW PORTABLE FINDINGS: The cardiac and mediastinal contours are normal. There is no evidence of focal pulmonary consolidation. There is no evidence of failure. No pleural effusions are visualized.[ There is no free intraperitoneal air. IMPRESSION: No active disease in the chest. Electronically signed by: Carlos Alberto Alvarez M.D. 06/16/2017 12:[address] ABD/PELVIS IV CONTRAST ONLY CLINICAL HISTORY: Abdominal pain status post trauma COMPARISON STUDY: 03/22/2017 TECHNIQUE: Following the IV administration of 115 mL of Optiray-320, CT scan of the abdomen and pelvis was performed from the lung bases to the proximal femurs. Images are reviewed in the axial, sagittal, and coronal planes. IV contrast was administered without complication. A dose lowering technique was utilized adhering to the principles of ALARA. CT DOSE: FINDINGS: Lower chest: The heart is normal in size and configuration, without pericardial effusion. The lung bases and pleural spaces are clear. Liver: There is mild hepatic steatosis. No space-occupying masses are visualized. Gallbladder: Unremarkable. Spleen: Normal in size and attenuation. Pancreas: Unremarkable. Adrenal glands: Unremarkable. Kidneys: There is symmetric renal cortical enhancement. The kidneys are normal in size without hydronephrosis. Bowel: There are no transition zones indicate bowel obstruction. There is no interloop fluid. There are no extraluminal air collections. There is no acute diverticulitis. The appendix appears normal. Peritoneum: There is no intraperitoneal free air or abdominal ascites. Vasculature: The abdominal aorta is normal in course and caliber. Adenopathy: There is a 2 cm soft tissue density along the left iliac chain, likely representing a lymph node. This appears smaller than on the preceding study. Pelvic viscera: There is mild bladder wall thickening. Skeletal structures: 6 no fractures are visualized. Degenerative changes are present within the spine. There is subcutaneous anterior abdominal wall contusions. There are nonspecific sclerotic foci within the pelvis, unchanged the prior study. IMPRESSION: 1. Subcutaneous anterior abdominal wall contusions 2. No evidence of solid organ injury. 3. Interval decrease in the size of the enlarged left external iliac lymph node. Electronically signed by: Carlos Alberto Alvarez M.D. 06/16/2017 1:[address] NECK ANGIO WITH CONTRAST CLINICAL HISTORY: Stroke like symptoms. Right-sided weakness. Dizziness. Neck pain. History of prostate carcinoma. COMPARISON STUDY: 03/25/2017 TECHNIQUE: CT angiography was performed from the aortic arch to the skull base. MIP imaging was performed. The patient was scanned in a dynamic helical fashion during intravenous administration of 115 cc of Optiray 320. A dose lowering technique was utilized adhering to the principles of ALARA. CT DOSE: Technique: CT angiogram of the carotid and vertebral arteries was obtained using intravenous contrast and 3-D reconstruction. NASCET criteria was utilized. Findings: The right carotid revealed no evidence of aneurysm and no evidence of dissection. There is no evidence of hemodynamic significant stenosis. There is atheromatous plaque within the right common carotid artery without evidence of hemodynamically significant stenosis The left carotid revealed no evidence of hemodynamic significant stenosis. There is no evidence of aneurysm. There is no evidence of dissection. The right vertebral artery is dominant. There is no evidence of stenosis, occlusion, or dissection. The distal left vertebral artery appears to terminate within a PICA branch. There is a focal stenosis of the left vertebral artery at the C6 level. This remains unchanged from the preceding study. IMPRESSION: 1. No evidence of hemodynamically significant carotid stenosis 2. Dominant right vertebral artery 3. Stable focal stenosis of the left vertebral artery at the C6 level Electronically signed by: Carlos Alberto Alvarez M.D. 06/16/2017 1:[address] OF THE CERVICAL SPINE CLINICAL HISTORY: Neck pain. Trauma. Right-sided weakness. History of prostate carcinoma. COMPARISON STUDY: No previous studies for comparison. CT DOSE: 4361.87 mGy.cm TECHNIQUE: CT scan of the cervical spine was performed from the skull base to the thoracic inlet. Images are reviewed in the axial, sagittal, and coronal planes. IV contrast was not administered for this examination. A dose lowering technique was utilized adhering to the principles of ALARA. FINDINGS: The visualized portions of the lung apices reveal no evidence of pneumothorax. The prevertebral soft tissues are normal. No fractures or subluxations are visualized. There are mild multilevel degenerative changes There are no suspicious blastic lesions. There is a nonspecific 5 mm lytic focus within the left side of the C5 vertebra. IMPRESSION: 1. No fractures or subluxations identified 2. Nonspecific 5 mm lytic focus within the left side of the C5 vertebra. Electronically signed by: Carlos Alberto Alvarez M.D. 06/16/2017 1:[address] ANGIOGRAPHY HEAD COMBO CT DOSE: CLINICAL HISTORY: Dizziness, right-sided weakness. Possible stroke. Prostate carcinoma. TECHNIQUE: Unenhanced images were obtained the brain. CT angiography was then performed in a dynamic helical fashion during intravenous administration 1 15 cc of Optiray 320. MIP imaging was obtained. A dose lowering technique was utilized adhering to the principles of ALARA. COMPARISON STUDY: 05/02/2017 FINDINGS: Noncontrast images reveal an old left occipital lobe infarct. There are patchy white matter hypodensities likely on a small vessel basis. There are scattered lacunar infarcts in the white matter. There is no evidence of hemorrhage. There is no midline shift. Postcontrast images reveal no evidence of dural venous sinus thrombosis. There are no pathologically enhancing lesions. There are no lesion suspicious for aneurysm. There is a hypoplastic A1 segment. There are multiple mild to moderate intracranial stenotic lesions. There is a moderate stenosis of the right supraclinoid internal carotid, and a high-grade stenosis of the left supraclinoid internal carotid. IMPRESSION: 1. No evidence of aneurysm 2. Moderate stenosis of the right supraclinoid internal carotid, and high-grade stenosis of the left supraclinoid internal carotid 3. Multiple additional mild intracranial atherosclerotic stenoses. Electronically signed by: Carlos Alberto Alvarez M.D. 06/16/2017 1:[address] LUMBAR SPINE WITHOUT CT DOSE: CLINICAL HISTORY: Low back pain status post trauma. Prostate carcinoma TECHNIQUE: Helical images were acquired in transverse plane. Reformatted sagittal and coronal images were reviewed. A dose lowering technique was utilized adhering to the principles of ALARA. CONTRAST: No contrast was administered COMPARISON STUDY: None. FINDINGS: L1-2 level: There is no evidence of significant disc bulge or focal herniation. There is no evidence of spinal or foraminal stenosis. L2-3 level: There is a mild circumferential disc bulge. There is no significant foraminal stenosis. There is minimal spinal canal narrowing L3-4 level: There is a mild circumference disc bulge. There is mild spinal stenosis. There is no significant foraminal narrowing L4-5 level: There is a circumferential disc bulge. There is moderate spinal stenosis. There is no significant foraminal narrowing L5-S1 level: There is a mild circumferential disc bulge. There is no significant spinal or foraminal stenosis. There is partial ankylosis of the right SI joint. There are no acute fractures or traumatic subluxations. There are no suspicious lytic or blastic lesions. IMPRESSION: 1. No acute fractures or traumatic subluxations 2. Multilevel spondylitic changes with spinal stenosis most severe at the L4-5 level Electronically signed by: Carlos Alberto Alvarez M.D. 06/16/2017 1:[address] THORACIC SPINE WITHOUT CT DOSE: CLINICAL HISTORY: Pain, trauma. Prostate carcinoma. TECHNIQUE: Helical images were acquired in the transverse plane. Sagittal and coronal reformatted images were acquired. A dose lowering technique was utilized adhering to the principles of ALARA. COMPARISON STUDY: None. FINDINGS: No paraspinal masses are visualized on this noncontrast study. No fractures or subluxations are visualized. There are mild multilevel degenerative changes present. There are no suspicious lytic or blastic lesions. There is a tiny disc osteophyte complex at the T11-12 level. IMPRESSION: 1. No fractures or traumatic subluxations identified 2. Mild multilevel degenerative change. Tiny disc osteophyte complex at T11-12 level. 3. No suspicious lytic or blastic lesions identified Electronically signed by: Carlos Alberto Alvarez M.D. 06/16/2017 1:10 PM Laboratory Results 06/16/17 12:08 Red Blood Count 5.90, Mean Corpuscular Volume 79.7, Mean Corpuscular Hemoglobin 26.8, Mean Corpuscular Hemoglobin Concent 33.6, Mean Platelet Volume 10.6, Neutrophils (%) (Auto) 73.3, Lymphocytes (%) (Auto) 16.8, Monocytes (%) (Auto) 8.7, Eosinophils (%) (Auto) 0.6, Basophils (%) (Auto) 0.4, Neutrophils # (Auto) 8.48, Lymphocytes # (Auto) 1.94, Monocytes # (Auto) 1.00, Eosinophils # (Auto) 0.07, Basophils # (Auto) 0.05 06/16/17 12:08 Test 06/16/17 12:03 06/16/17 12:08 06/16/17 12:15 06/16/17 13:14 Bedside Prothrombin Time INR 1.1 (0.9-1.1) White Blood Count 11.56 K/uL (4.8-10.8) Red Blood Count 5.90 M/uL (4.7-6.1) Hemoglobin 15.8 g/dL (14.0-18.0) Hematocrit 47.0 % (42-52) Mean Corpuscular Volume 79.7 fL (80-100) Mean Corpuscular Hemoglobin 26.8 pg (25-34) Mean Corpuscular Hemoglobin Concent 33.6 g/dl (32-36) Platelet Count 346 K/uL (130-400) Mean Platelet Volume 10.6 fL (7.4-10.4) Neutrophils (%) (Auto) 73.3 % Lymphocytes (%) (Auto) 16.8 % Monocytes (%) (Auto) 8.7 % Eosinophils (%) (Auto) 0.6 % Basophils (%) (Auto) 0.4 % Neutrophils # (Auto) 8.48 K/uL (1.4-6.5) Lymphocytes # (Auto) 1.94 K/uL (1.2-3.4) Monocytes # (Auto) 1.00 K/uL (0.11-0.59) Eosinophils # (Auto) 0.07 K/uL (0-0.5) Basophils # (Auto) 0.05 K/uL (0-0.2) RDW Standard Deviation 40.0 fL (36.4-46.3) RDW Coefficient of Variation 13.9 % (11.5-14.5) Immature Granulocyte % (Auto) 0.2 % Immature Granulocyte # (Auto) 0.02 K/uL (0.00-0.02) Est Creatinine Clear Calc Drug Dose 66.9 ml/min Estimated GFR () 59.9 Estimated GFR (Non- 51.7 BUN/Creatinine Ratio 14.5 (10-20) Calcium Level 9.0 mg/dl (8.5-10.1) Total Bilirubin 0.6 mg/dl (0.2-1) Direct Bilirubin 0.1 mg/dl (0-0.2) Aspartate Amino Transf (AST/SGOT) 21 U/L (15-37) Alanine Aminotransferase (ALT/SGPT) 34 U/L (12-78) Alkaline Phosphatase 118 U/L (45-117) Troponin I < 0.015 ng/ml (0-0.045) Total Protein 7.7 gm/dl (6.4-8.2) Albumin 3.9 gm/dl (3.4-5.0) Lipase 71 U/L (73-393) Bedside Hemoglobin 16.7 g/dl (14.0-18.0) Bedside Hematocrit 49 % (42-52) Bedside Sodium 133 mEq/L (135-144) Bedside Potassium 4.7 mEq/L (3.3-5.0) Bedside Chloride 95 mEq/L (101-112) Bedside Total CO2 27 mEq/l (24-31) Anion Gap 17.0 mmol/L (16-25) Bedside Blood Urea Nitrogen 21 mg/dl (7-18) Bedside Creatinine 1.3 mg/dl (0.6-1.3) Bedside Glucose (other) 182 mg/dl (70-99) Bedside Ionized Calcium (Jayy) 1.19 mmol/l (1.12-1.32) Urine Color YELLOW Urine Appearance CLEAR (CLEAR) Urine pH 5.0 (4.5-7.5) Urine Specific [place] 1.032 (1.000-1.030) Urine Protein NEG (NEG) Urine Glucose (UA) NEG (NEG) Urine Ketones NEG (NEG) Urine Occult Blood NEG (NEG) Urine Nitrite NEG (NEG) Urine Bilirubin NEG (NEG) Urine Urobilinogen NEG (NEG) Urine Leukocyte Esterase NEG (NEG) Laboratory results reviewed by me Medications Administered Medications (Trade) Dose Ordered Sig/Ashley Route Start Time Stop Time Status Last Admin Dose Admin Sodium Chloride 1,000 ml @ 125 mls/hr Q8H STAT IV 06/16/17 12:18 06/16/17 19:27 DC 06/16/17 12:18 125 MLS/HR Metoclopramide HCl (Reglan Inj) 10 mg NOW STAT IV 06/16/17 12:18 06/16/17 12:24 DC 06/16/17 12:18 10 MG ECG Indication: weakness Rate (beats per minute): 63 Rhythm: normal sinus Findings: no acute ischemic change, other (normal axis) ED Course 1206: The patient was evaluated in room C4. A complete history and physical exam was performed. 1218: Ordered Reglan Injections 10 mg IV, Sodium Chloride 1000 ml @ 125 mls/hr IV. 1242: I ordered a Xeroform wrap around the right toe. 1506: Upon reexamination, the patient was resting comfortably. I discussed the test results and treatment plan with him. The patient will be evaluated for further management. Medical Decision I reviewed the patient's past medical history, medications, and the nursing notes as described above. The patient's presentation and history were concerning for stroke, ICH, dehydration, electrolyte abnormality, locus minoris, pneumonia, bronchitis, UTI , and metastatic spinal disease. The patient is a 67-year-old gentleman with a PAC, dictating a past medical history of CVA with residual right upper extremity and right lower extremity weakness, per for vascular disease status post right lower extremity stent, right toe ulceration with planned amputation presents to the emergency Department with persistent headache, lightheadedness which began last night around 7 PM the setting of worsening right-sided weakness since his CVA in February, which is also in the setting of recent diagnosis of prostate cancer per history of present illness. On arrival the patient appears fatigued but is in no acute distress, afebrile with stable vital signs. He does have mild right pronator drift as well as 4-5 strength in the right lower extremity. Otherwise no gross neuro deficits. Does have a 3 cm area of ecchymosis in his right upper quadrant after he fell last week while he was still on his aspirin and Plavix. CTA of the head shows Moderate stenosis of the right supraclinoid internal carotid, and high-grade stenosis of the left supraclinoid internal carotid, otherwise no other significant findings. Cspine CT with lytic lesion but no gross evidence of annie mets. Creatinine is 1.3 slightly up from recent. Mild dehydration in the setting of stenotic findings may explain some of the patient's symptoms but given history of CVA will need admission for further stroke evaluation and gentle hydration. Case was d/w GREGORIO Hancock hospitalist, who will admit the patient for further management. Medication Reconcilliation Current Medication List: was personally reviewed by me Blood Pressure Screening Patient's blood pressure: Normal blood pressure Blood pressure disposition: Did not require urgent referral Consults Time Called: 1502 Consulting Physician: Dr. Karissa LANE Returned Call: 1506 I discussed the patient with Dr. Karissa VILLEGAS will evaluate the patient for further treatment. Impression Primary Impression: Weakness Additional Impression: Dizziness Scribe Attestation The scribe's documentation has been prepared under my direction and personally reviewed by me in its entirety. I confirm that the note above accurately reflects all work, treatment, procedures, and medical decision making performed by me. Departure Information Dispostion Being Evaluated By Hospitalist Referrals Yojana Hawley ., BRICE (PCP) Patient Instructions [facility] Problem Qualifiers
[2017-06-16 12:55] LABS: BASO % 0.4 %; BASO ABS # 0.05 K/uL (0-0.2); COMPLETE YES; EOS % 0.6 %; IG% 0.2 %; LYMPH % 16.8 %; LYMPH ABS # 1.94 K/uL (1.2-3.4); MEAN CELL VOLUME 79.7 fL (80-100); MEAN CORPUSCULAR HEMOGLOBIN 26.8 pg (25-34); MEAN CORPUSCULAR HGB CONC 33.6 g/dl (32-36); MEAN PLATELET VOLUME 10.6 fL (7.4-10.4); MONO % 8.7 %; NEUT % 73.3 %; PLATELET COUNT 346 K/uL (130-400); WHITE BLOOD COUNT 11.56 K/uL (4.8-10.8)
[2017-06-16 13:02] LABS: ALT/SGPT 34 U/L (12-78); BLOOD UREA NITROGEN 20 mg/dl (7-18); BUN/CREATININE RATIO 14.5 (10-20); CARBON DIOXIDE 28 mmol/L (21-32); CHLORIDE 96 mmol/L (98-107); CREATININE 1.39 mg/dl (0.60-1.40); GLUCOSE 179 mg/dl (70-99); POTASSIUM 4.5 mmol/L (3.5-5.1); SODIUM 131 mmol/L (136-145)
[2017-06-16 13:07] LABS: ALKALINE PHOSPHATASE 118 U/L (45-117); AST/SGOT 21 U/L (15-37)
--- NOTE | 2017-06-16 13:12 | DIAGNOSTIC IMAGING REPORT ---
CT THORACIC SPINE WITHOUT CT DOSE: CLINICAL HISTORY: Pain, trauma. Prostate carcinoma. TECHNIQUE: Helical images were acquired in the transverse plane. Sagittal and coronal reformatted images were acquired. A dose lowering technique was utilized adhering to the principles of ALARA. COMPARISON STUDY: None. FINDINGS: No paraspinal masses are visualized on this noncontrast study. No fractures or subluxations are visualized. There are mild multilevel degenerative changes present. There are no suspicious lytic or blastic lesions. There is a tiny disc osteophyte complex at the T11-12 level. IMPRESSION: 1. No fractures or traumatic subluxations identified 2. Mild multilevel degenerative change. Tiny disc osteophyte complex at T11-12 level. 3. No suspicious lytic or blastic lesions identified Electronically signed by: Carlos Alberto Alvarez M.D. 06/16/2017 1:10 PM Dictated Date/Time: 06/16/2017 1:06 PM
--- NOTE | 2017-06-16 13:16 | DIAGNOSTIC IMAGING REPORT ---
CT OF THE CERVICAL SPINE CLINICAL HISTORY: Neck pain. Trauma. Right-sided weakness. History of prostate carcinoma. COMPARISON STUDY: No previous studies for comparison. CT DOSE: 4361.87 mGy.cm TECHNIQUE: CT scan of the cervical spine was performed from the skull base to the thoracic inlet. Images are reviewed in the axial, sagittal, and coronal planes. IV contrast was not administered for this examination. A dose lowering technique was utilized adhering to the principles of ALARA. FINDINGS: The visualized portions of the lung apices reveal no evidence of pneumothorax. The prevertebral soft tissues are normal. No fractures or subluxations are visualized. There are mild multilevel degenerative changes There are no suspicious blastic lesions. There is a nonspecific 5 mm lytic focus within the left side of the C5 vertebra. IMPRESSION: 1. No fractures or subluxations identified 2. Nonspecific 5 mm lytic focus within the left side of the C5 vertebra. Electronically signed by: Carlos Alberto Alvarez M.D. 06/16/2017 1:15 PM Dictated Date/Time: 06/16/2017 1:11 PM
[2017-06-16 13:26] LABS: URINE APPEARANCE CLEAR (CLEAR); URINE BILIRUBIN NEG (NEG); URINE COLOR YELLOW; URINE NITRITE NEG (NEG); URINE SPECIFIC GRAVITY 1.032 (1.000-1.030); UROBILINOGEN NEG (NEG); ZZURINE CULT IF INDIC CATH NO
[2017-06-16 13:27] LABS: MANUAL MICROSCOPIC REQUIRED? NO; REVIEW REQ? NO
--- NOTE | 2017-06-16 13:28 | DIAGNOSTIC IMAGING REPORT ---
CT ABD/PELVIS IV CONTRAST ONLY CLINICAL HISTORY: Abdominal pain status post trauma COMPARISON STUDY: 03/22/2017 TECHNIQUE: Following the IV administration of 115 mL of Optiray-320, CT scan of the abdomen and pelvis was performed from the lung bases to the proximal femurs. Images are reviewed in the axial, sagittal, and coronal planes. IV contrast was administered without complication. A dose lowering technique was utilized adhering to the principles of ALARA. CT DOSE: FINDINGS: Lower chest: The heart is normal in size and configuration, without pericardial effusion. The lung bases and pleural spaces are clear. Liver: There is mild hepatic steatosis. No space-occupying masses are visualized. Gallbladder: Unremarkable. Spleen: Normal in size and attenuation. Pancreas: Unremarkable. Adrenal glands: Unremarkable. Kidneys: There is symmetric renal cortical enhancement. The kidneys are normal in size without hydronephrosis. Bowel: There are no transition zones indicate bowel obstruction. There is no interloop fluid. There are no extraluminal air collections. There is no acute diverticulitis. The appendix appears normal. Peritoneum: There is no intraperitoneal free air or abdominal ascites. Vasculature: The abdominal aorta is normal in course and caliber. Adenopathy: There is a 2 cm soft tissue density along the left iliac chain, likely representing a lymph node. This appears smaller than on the preceding study. Pelvic viscera: There is mild bladder wall thickening. Skeletal structures: 6 no fractures are visualized. Degenerative changes are present within the spine. There is subcutaneous anterior abdominal wall contusions. There are nonspecific sclerotic foci within the pelvis, unchanged the prior study. IMPRESSION: 1. Subcutaneous anterior abdominal wall contusions 2. No evidence of solid organ injury. 3. Interval decrease in the size of the enlarged left external iliac lymph node. Electronically signed by: Carlos Alberto Alvarez M.D. 06/16/2017 1:27 PM Dictated Date/Time: 06/16/2017 1:20 PM
--- NOTE | 2017-06-16 13:32 | DIAGNOSTIC IMAGING REPORT ---
CT LUMBAR SPINE WITHOUT CT DOSE: CLINICAL HISTORY: Low back pain status post trauma. Prostate carcinoma TECHNIQUE: Helical images were acquired in transverse plane. Reformatted sagittal and coronal images were reviewed. A dose lowering technique was utilized adhering to the principles of ALARA. CONTRAST: No contrast was administered COMPARISON STUDY: None. FINDINGS: L1-2 level: There is no evidence of significant disc bulge or focal herniation. There is no evidence of spinal or foraminal stenosis. L2-3 level: There is a mild circumferential disc bulge. There is no significant foraminal stenosis. There is minimal spinal canal narrowing L3-4 level: There is a mild circumference disc bulge. There is mild spinal stenosis. There is no significant foraminal narrowing L4-5 level: There is a circumferential disc bulge. There is moderate spinal stenosis. There is no significant foraminal narrowing L5-S1 level: There is a mild circumferential disc bulge. There is no significant spinal or foraminal stenosis. There is partial ankylosis of the right SI joint. There are no acute fractures or traumatic subluxations. There are no suspicious lytic or blastic lesions. IMPRESSION: 1. No acute fractures or traumatic subluxations 2. Multilevel spondylitic changes with spinal stenosis most severe at the L4-5 level Electronically signed by: Carlos Alberto Alvarez M.D. 06/16/2017 1:31 PM Dictated Date/Time: 06/16/2017 1:28 PM
--- NOTE | 2017-06-16 13:39 | DIAGNOSTIC IMAGING REPORT ---
CT NECK ANGIO WITH CONTRAST CLINICAL HISTORY: Stroke like symptoms. Right-sided weakness. Dizziness. Neck pain. History of prostate carcinoma. COMPARISON STUDY: 03/25/2017 TECHNIQUE: CT angiography was performed from the aortic arch to the skull base. MIP imaging was performed. The patient was scanned in a dynamic helical fashion during intravenous administration of 115 cc of Optiray 320. A dose lowering technique was utilized adhering to the principles of ALARA. CT DOSE: Technique: CT angiogram of the carotid and vertebral arteries was obtained using intravenous contrast and 3-D reconstruction. NASCET criteria was utilized. Findings: The right carotid revealed no evidence of aneurysm and no evidence of dissection. There is no evidence of hemodynamic significant stenosis. There is atheromatous plaque within the right common carotid artery without evidence of hemodynamically significant stenosis The left carotid revealed no evidence of hemodynamic significant stenosis. There is no evidence of aneurysm. There is no evidence of dissection. The right vertebral artery is dominant. There is no evidence of stenosis, occlusion, or dissection. The distal left vertebral artery appears to terminate within a PICA branch. There is a focal stenosis of the left vertebral artery at the C6 level. This remains unchanged from the preceding study. IMPRESSION: 1. No evidence of hemodynamically significant carotid stenosis 2. Dominant right vertebral artery 3. Stable focal stenosis of the left vertebral artery at the C6 level Electronically signed by: Carlos Alberto Alvarez M.D. 06/16/2017 1:38 PM Dictated Date/Time: 06/16/2017 1:31 PM
--- NOTE | 2017-06-16 13:46 | DIAGNOSTIC IMAGING REPORT ---
CT ANGIOGRAPHY HEAD COMBO CT DOSE: CLINICAL HISTORY: Dizziness, right-sided weakness. Possible stroke. Prostate carcinoma. TECHNIQUE: Unenhanced images were obtained the brain. CT angiography was then performed in a dynamic helical fashion during intravenous administration 1 15 cc of Optiray 320. MIP imaging was obtained. A dose lowering technique was utilized adhering to the principles of ALARA. COMPARISON STUDY: 05/02/2017 FINDINGS: Noncontrast images reveal an old left occipital lobe infarct. There are patchy white matter hypodensities likely on a small vessel basis. There are scattered lacunar infarcts in the white matter. There is no evidence of hemorrhage. There is no midline shift. Postcontrast images reveal no evidence of dural venous sinus thrombosis. There are no pathologically enhancing lesions. There are no lesion suspicious for aneurysm. There is a hypoplastic A1 segment. There are multiple mild to moderate intracranial stenotic lesions. There is a moderate stenosis of the right supraclinoid internal carotid, and a high-grade stenosis of the left supraclinoid internal carotid. IMPRESSION: 1. No evidence of aneurysm 2. Moderate stenosis of the right supraclinoid internal carotid, and high-grade stenosis of the left supraclinoid internal carotid 3. Multiple additional mild intracranial atherosclerotic stenoses. Electronically signed by: Carlos Alberto Alvarez M.D. 06/16/2017 1:44 PM Dictated Date/Time: 06/16/2017 1:38 PM
[2017-06-16] MEDS ORDERED: ACETAMINOPHEN 325 MG TAB PO PRN (16:15)
[2017-06-16] MEDS ORDERED: ONDANSETRON INJ 2 MG/ML 2 ML VIAL IV PRN (16:15)
[2017-06-16] MEDS ORDERED: POLYETHYLENE (MIRALAX) 17 GM PACK PO PRN (16:15)
[2017-06-16] MEDS ORDERED: MAGNESIUM HYDROXIDE SUSP 30 ML UDC PO PRN (16:15)
[2017-06-16] MEDS ORDERED: PHARMACIST DISCHARGE MED REC CONSULT PRN (16:15)
[2017-06-16] MEDS ORDERED: ALUMINUM/MAGNESIUM/SIMETH (MAALOX MAX) 30 ML UDC PO PRN (16:15)
--- NOTE | 2017-06-16 16:58 | History and Physical ---
History & Physical Date & Time of Service: Jun 16, 2017 at 16:26 Chief Complaint: Stroke Like Symptoms Primary Care Physician: Yojana Hawley .BRICE History of Present Illness Source: patient, family ( and son at bedside), clinic records, hospital records This is a 67 y/o male with a history of CVA x 2, CAD, HTN, HLD, DM II, prostate cancer and adjustment disorder who presented to the ED on 06/16 with stroke like symptoms. The patient had a left occipital stroke on 03/24/17 which left him with some residual right sided weakness. After being discharged from rehab , the family notes that he has been progressively declining with worsening weakness. He requires assistance with all ADLs and has several falls, the most recent being about 5 days ago. The family states that the patient has been having memory issues since the last stroke and is not always a reliable historian. The patient began to complain of numbness in his right upper extremity around 1900 last night. He also developed a headache, and the states that this is a similar presentation as his last stroke. The patient's aspirin and Plavix were stopped on 06/14 due to an upcoming right second toe amputation on 06/21 due to osteomyelitis. The patient denies fevers, chills, sweats, chest pain, palpitations, claudication, cough, wheezing, shortness of breath, nausea, vomiting, abdominal pain, dysuria, hematuria, urinary retention , paralysis. Past Medical/Surgical History CVA x 2 (2008 and 03/24/17) CAD HTN HLD DM II Prostate cancer diagnosed February 2017 Adjustment disorder Family History Cancer (prostate) Diabetes mellitus Heart disease Hypertension Kidney disease Kidney stones Lung disease Stroke Social History Smoking Status: Never Smoker Smokeless Tobacco Use: No Alcohol Use: none Drug Use: none Marital Status: Housing status: lives with significant other Occupational Status: retired Immunizations History of Influenza Vaccine: No History of Tetanus Vaccine?: No History of Pneumococcal: No History of Hepatitis B Vaccine: No Multi-Drug Resistant Organisms History of MDRO: No Allergies Coded Allergies: No Known Allergies (Verified , 06/16/17) Home Medications Scheduled Aspirin (Aspirin Ec), 81 MG PO QAM Atorvastatin (Lipitor), 80 MG PO QPM Calcium Citrate-Vitamin D (Citracal + D3 Maximum), 1 TAB PO QAM Cholecalciferol (Vitamin D3), 2,000 UNITS PO BID Clopidogrel (Plavix), 75 MG PO QAM Degarelix Acetate (Firmagon), 240 MG SC MONTHLY Escitalopram (Lexapro), 10 MG PO QAM Insulin Glargine (Lantus Solostar), 48 UNITS SC QAM Insulin Glargine (Lantus Solostar), 48 UNITS SC HS Insulin Lispro (Human) (Humalog), 1 DOSE SC ACHS Lisinopril (Zestril), 5 MG PO QAM Nebivolol Hcl (Bystolic), 5 MG PO QPM Sulfa/Trimethoprim (Bactrim Ds 800MG/160MG), 1 TAB PO BID Scheduled PRN Acetaminophen (Tylenol), 500 MG PO UD PRN for Pain Review of Systems Constitutional: +Headache. No fever, No chills, No sweats Eyes: No worsening of vision, No eye pain, No diplopia ENT: No hearing loss, No nasal symptoms, No trouble swallowing Respiratory: No cough, No wheezing, No shortness of breath Cardiovascular: No chest pain, No claudication, No palpitations Abdomen: No pain, No nausea, No vomiting Musculoskeletal: No joint pain, No muscle pain, No swelling Genitourinary - Male: No dysuria, No urinary retention, No hematuria Neurologic: +Numbness RUE. Weakness RLE. No paralysis Integumentary: No rash, No itch, No color change Physical Exam Vital Signs Date Time Temp Pulse Resp B/P (MAP) Pulse Ox O2 Delivery O2 Flow Rate FiO2 06/16/17 15:07 36.8 66 18 153/69 96 Room Air 06/16/17 13:32 70 20 132/66 96 Room Air 06/16/17 12:30 62 20 151/79 96 Room Air 06/16/17 12:05 Room Air 06/16/17 12:04 70 06/16/17 12:02 72 20 165/78 96 Room Air 06/16/17 11:51 36.7 69 18 131/78 95 Room Air General appearance: +Obese. Well-developed, well-nourished, no apparent distress Head: Normocephalic, atraumatic Eyes: Normal inspection, PERRL, EOMI ENT: Normal ENT inspection, hearing grossly normal, pharynx normal Neck: Supple, no JVD, trachea midline Respiratory/Chest: Lungs clear to auscultation, normal breath sounds, no respiratory distress Cardiovascular: Regular rate & rhythm, no gallop, no murmur Abdomen/GI: +Small ecchymosis RUQ. Normal bowel sounds, non-tender, soft Extremities/Musculoskeletal: +Right foot wrapped in gauze. Normal inspection, no calf tenderness, no pedal edema Neurological/Psych: +Right pronator drift. RLE 4/5 strength. Alert, normal mood/affect, oriented x 3 Skin: Normal color, warm/dry, no rash Diagnostics Laboratory Results Results Past 24 Hours Test 06/16/17 12:03 06/16/17 12:08 06/16/17 12:15 06/16/17 13:14 Range/Units Bedside Prothrombin Time INR 1.1 0.9-1.1 Bedside Glucose 178 70-99 mg/dl White Blood Count 11.56 4.8-10.8 K/uL Red Blood Count 5.90 4.7-6.1 M/uL Hemoglobin 15.8 14.0-18.0 g/dL Hematocrit 47.0 42-52 % Mean Corpuscular Volume 79.7 80-100 fL Mean Corpuscular Hemoglobin 26.8 25-34 pg Mean Corpuscular Hemoglobin Concent 33.6 32-36 g/dl Platelet Count 346 130-400 K/uL Mean Platelet Volume 10.6 7.4-10.4 fL Neutrophils (%) (Auto) 73.3 % Lymphocytes (%) (Auto) 16.8 % Monocytes (%) (Auto) 8.7 % Eosinophils (%) (Auto) 0.6 % Basophils (%) (Auto) 0.4 % Neutrophils # (Auto) 8.48 1.4-6.5 K/uL Lymphocytes # (Auto) 1.94 1.2-3.4 K/uL Monocytes # (Auto) 1.00 0.11-0.59 K/uL Eosinophils # (Auto) 0.07 0-0.5 K/uL Basophils # (Auto) 0.05 0-0.2 K/uL RDW Standard Deviation 40.0 36.4-46.3 fL RDW Coefficient of Variation 13.9 11.5-14.5 % Immature Granulocyte % (Auto) 0.2 % Immature Granulocyte # (Auto) 0.02 0.00-0.02 K/uL Sodium Level 131 136-145 mmol/L Potassium Level 4.5 3.5-5.1 mmol/L Chloride Level 96 98-107 mmol/L Carbon Dioxide Level 28 21-32 mmol/L Anion Gap 8.0 17.0 16-25 mmol/L Blood Urea Nitrogen 20 7-18 mg/dl Creatinine 1.39 0.60-1.40 mg/dl Est Creatinine Clear Calc Drug Dose 66.9 ml/min Estimated GFR () 59.9 Estimated GFR (Non- 51.7 BUN/Creatinine Ratio 14.5 10-20 Random Glucose 179 70-99 mg/dl Calcium Level 9.0 8.5-10.1 mg/dl Total Bilirubin 0.6 0.2-1 mg/dl Direct Bilirubin 0.1 0-0.2 mg/dl Aspartate Amino Transf (AST/SGOT) 21 15-37 U/L Alanine Aminotransferase (ALT/SGPT) 34 12-78 U/L Alkaline Phosphatase 118 45-117 U/L Troponin I < 0.015 0-0.045 ng/ml Total Protein 7.7 6.4-8.2 gm/dl Albumin 3.9 3.4-5.0 gm/dl Lipase 71 73-393 U/L Bedside Hemoglobin 16.7 14.0-18.0 g/dl Bedside Hematocrit 49 42-52 % Bedside Sodium 133 135-144 mEq/L Bedside Potassium 4.7 3.3-5.0 mEq/L Bedside Chloride 95 101-112 mEq/L Bedside Total CO2 27 24-31 mEq/l Bedside Blood Urea Nitrogen 21 7-18 mg/dl Bedside Creatinine 1.3 0.6-1.3 mg/dl Bedside Glucose (other) 182 70-99 mg/dl Bedside Ionized Calcium (Jayy) 1.19 1.12-1.32 mmol/l Urine Color YELLOW Urine Appearance CLEAR CLEAR Urine pH 5.0 4.5-7.5 Urine Specific Sunman 1.032 1.000-1.030 Urine Protein NEG NEG Urine Glucose (UA) NEG NEG Urine Ketones NEG NEG Urine Occult Blood NEG NEG Urine Nitrite NEG NEG Urine Bilirubin NEG NEG Urine Urobilinogen NEG NEG Urine Leukocyte Esterase NEG NEG Diagnostic Radiology Reviewed the following studies and agree with interpretation as follows: CT ANGIOGRAPHY HEAD COMBO CT DOSE: CLINICAL HISTORY: Dizziness, right-sided weakness. Possible stroke. Prostate carcinoma. TECHNIQUE: Unenhanced images were obtained the brain. CT angiography was then performed in a dynamic helical fashion during intravenous administration 1 15 cc of Optiray 320. MIP imaging was obtained. A dose lowering technique was utilized adhering to the principles of ALARA. COMPARISON STUDY: 05/02/2017 FINDINGS: Noncontrast images reveal an old left occipital lobe infarct. There are patchy white matter hypodensities likely on a small vessel basis. There are scattered lacunar infarcts in the white matter. There is no evidence of hemorrhage. There is no midline shift. Postcontrast images reveal no evidence of dural venous sinus thrombosis. There are no pathologically enhancing lesions. There are no lesion suspicious for aneurysm. There is a hypoplastic A1 segment. There are multiple mild to moderate intracranial stenotic lesions. There is a moderate stenosis of the right supraclinoid internal carotid, and a high-grade stenosis of the left supraclinoid internal carotid. IMPRESSION: 1. No evidence of aneurysm 2. Moderate stenosis of the right supraclinoid internal carotid, and high-grade stenosis of the left supraclinoid internal carotid 3. Multiple additional mild intracranial atherosclerotic stenoses. CT NECK ANGIO WITH CONTRAST CLINICAL HISTORY: Stroke like symptoms. Right-sided weakness. Dizziness. Neck pain. History of prostate carcinoma. COMPARISON STUDY: 03/25/2017 TECHNIQUE: CT angiography was performed from the aortic arch to the skull base. MIP imaging was performed. The patient was scanned in a dynamic helical fashion during intravenous administration of 115 cc of Optiray 320. A dose lowering technique was utilized adhering to the principles of ALARA. CT DOSE: Technique: CT angiogram of the carotid and vertebral arteries was obtained using intravenous contrast and 3-D reconstruction. NASCET criteria was utilized. Findings: The right carotid revealed no evidence of aneurysm and no evidence of dissection. There is no evidence of hemodynamic significant stenosis. There is atheromatous plaque within the right common carotid artery without evidence of hemodynamically significant stenosis The left carotid revealed no evidence of hemodynamic significant stenosis. There is no evidence of aneurysm. There is no evidence of dissection. The right vertebral artery is dominant. There is no evidence of stenosis, occlusion, or dissection. The distal left vertebral artery appears to terminate within a PICA branch. There is a focal stenosis of the left vertebral artery at the C6 level. This remains unchanged from the preceding study. IMPRESSION: 1. No evidence of hemodynamically significant carotid stenosis 2. Dominant right vertebral artery 3. Stable focal stenosis of the left vertebral artery at the C6 level CT OF THE CERVICAL SPINE CLINICAL HISTORY: Neck pain. Trauma. Right-sided weakness. History of prostate carcinoma. COMPARISON STUDY: No previous studies for comparison. CT DOSE: 4361.87 mGy.cm TECHNIQUE: CT scan of the cervical spine was performed from the skull base to the thoracic inlet. Images are reviewed in the axial, sagittal, and coronal planes. IV contrast was not administered for this examination. A dose lowering technique was utilized adhering to the principles of ALARA. FINDINGS: The visualized portions of the lung apices reveal no evidence of pneumothorax. The prevertebral soft tissues are normal. No fractures or subluxations are visualized. There are mild multilevel degenerative changes There are no suspicious blastic lesions. There is a nonspecific 5 mm lytic focus within the left side of the C5 vertebra. IMPRESSION: 1. No fractures or subluxations identified 2. Nonspecific 5 mm lytic focus within the left side of the C5 vertebra. CT THORACIC SPINE WITHOUT CT DOSE: CLINICAL HISTORY: Pain, trauma. Prostate carcinoma. TECHNIQUE: Helical images were acquired in the transverse plane. Sagittal and coronal reformatted images were acquired. A dose lowering technique was utilized adhering to the principles of ALARA. COMPARISON STUDY: None. FINDINGS: No paraspinal masses are visualized on this noncontrast study. No fractures or subluxations are visualized. There are mild multilevel degenerative changes present. There are no suspicious lytic or blastic lesions. There is a tiny disc osteophyte complex at the T11-12 level. IMPRESSION: 1. No fractures or traumatic subluxations identified 2. Mild multilevel degenerative change. Tiny disc osteophyte complex at T11-12 level. 3. No suspicious lytic or blastic lesions identified CT LUMBAR SPINE WITHOUT CT DOSE: CLINICAL HISTORY: Low back pain status post trauma. Prostate carcinoma TECHNIQUE: Helical images were acquired in transverse plane. Reformatted sagittal and coronal images were reviewed. A dose lowering technique was utilized adhering to the principles of ALARA. CONTRAST: No contrast was administered COMPARISON STUDY: None. FINDINGS: L1-2 level: There is no evidence of significant disc bulge or focal herniation. There is no evidence of spinal or foraminal stenosis. L2-3 level: There is a mild circumferential disc bulge. There is no significant foraminal stenosis. There is minimal spinal canal narrowing L3-4 level: There is a mild circumference disc bulge. There is mild spinal stenosis. There is no significant foraminal narrowing L4-5 level: There is a circumferential disc bulge. There is moderate spinal stenosis. There is no significant foraminal narrowing L5-S1 level: There is a mild circumferential disc bulge. There is no significant spinal or foraminal stenosis. There is partial ankylosis of the right SI joint. There are no acute fractures or traumatic subluxations. There are no suspicious lytic or blastic lesions. IMPRESSION: 1. No acute fractures or traumatic subluxations 2. Multilevel spondylitic changes with spinal stenosis most severe at the L4-[address] ABD/PELVIS IV CONTRAST ONLY CLINICAL HISTORY: Abdominal pain status post trauma COMPARISON STUDY: 03/22/2017 TECHNIQUE: Following the IV administration of 115 mL of Optiray-320, CT scan of the abdomen and pelvis was performed from the lung bases to the proximal femurs. Images are reviewed in the axial, sagittal, and coronal planes. IV contrast was administered without complication. A dose lowering technique was utilized adhering to the principles of ALARA. CT DOSE: FINDINGS: Lower chest: The heart is normal in size and configuration, without pericardial effusion. The lung bases and pleural spaces are clear. Liver: There is mild hepatic steatosis. No space-occupying masses are visualized. Gallbladder: Unremarkable. Spleen: Normal in size and attenuation. Pancreas: Unremarkable. Adrenal glands: Unremarkable. Kidneys: There is symmetric renal cortical enhancement. The kidneys are normal in size without hydronephrosis. Bowel: There are no transition zones indicate bowel obstruction. There is no interloop fluid. There are no extraluminal air collections. There is no acute diverticulitis. The appendix appears normal. Peritoneum: There is no intraperitoneal free air or abdominal ascites. Vasculature: The abdominal aorta is normal in course and caliber. Adenopathy: There is a 2 cm soft tissue density along the left iliac chain, likely representing a lymph node. This appears smaller than on the preceding study. Pelvic viscera: There is mild bladder wall thickening. Skeletal structures: 6 no fractures are visualized. Degenerative changes are present within the spine. There is subcutaneous anterior abdominal wall contusions. There are nonspecific sclerotic foci within the pelvis, unchanged the prior study. IMPRESSION: 1. Subcutaneous anterior abdominal wall contusions 2. No evidence of solid organ injury. 3. Interval decrease in the size of the enlarged left external iliac lymph node. CHEST ONE VIEW PORTABLE CLINICAL HISTORY: Pain, radiating to the abdomen. COMPARISON STUDY: 05/02/2017 FINDINGS: The cardiac and mediastinal contours are normal. There is no evidence of focal pulmonary consolidation. There is no evidence of failure. No pleural effusions are visualized.[ There is no free intraperitoneal air. IMPRESSION: No active disease in the chest. EKG Reviewed EKG and agree with interpretation as follows: 63 bpm, NSR Impression Assessment and Plan 67 y/o male with a history of CVA x 2, CAD, HTN, HLD, DM II, prostate cancer and adjustment disorder who presented to the ED on 06/16 with stroke like symptoms. Noncontrast images from head CT show old left occipital infarct and scattered lacunar infarcts in white matter. Head CTA shows moderate stenosis of right supraclinoid internal carotid and high grade stenosis of left supraclinoid internal carotid. CTA neck unremarkable. Cervical, thoracic and lumbar spine CTs negative for acute findings. AVSS. WBC 11.56. Creatinine elevated above baseline at 1.39, BUN 20. Troponin negative. Stroke like symptoms, h/o CVA -Admit to telemetry for observation -Stroke protocol -Pt CANNOT have MRI for 6 weeks due to vascular stent placed on 05/[address] Carrero's instructions -Consult neurology, appreciate recs -Resume ASA and Plavix -Continue statin, beta sharon, ROWAN -Lipid panel done 05/19 showed triglycerides 175, non-HDL 148 -HgbA1c on 05/19 was 7.9 -PT/OT evaluate and treat SADIE--baseline creatinine 0.9, baseline eGFR 80s -Creatinine 1.39 on arrival -NSS at 125 cc/hr Progressive decline, multiple falls -PT/OT -A/P CT shows contusion, otherwise negative CAD, HTN, HLD--stable -Continue lisinopril 5 mg PO qd, Bystolic 5 mg PO qd and Lipitor 80 mg PO qd DM II--A1c 7.9 on 05/19 -Continue Lantus 48 units BID -Insulin sliding scale -Check BSGs q ac and qhs Prostate cancer diagnosed February 2017--no chemo or radiation yet, family states the pt was not stable enough -Pt takes Firmagon injections q month Adjustment disorder -Continue Lexapro 10 mg PO qd Osteomyelitis right second toe--ASA/Plavix had been stopped 06/14 due to upcoming surgery -Scheduled amputation 11/[address] Harvey -Consult orthopedics -Wound care nurse consulted DVT prophylaxis -Enoxaparin 40 mg SC q24h -EUNICE patel and SCDs Code Status -Level V, DO NOT RESUSCITATE Dispo -From home but with weakness and frequent falls -PT/OT evaluate and treat -Case management consulted Level of Care Telemetry Resuscitation Status DO NOT RESUSCITATE VTE Prophylaxis VTE Risk Assessment Done? Y/N: Yes Risk Level: Moderate Given or contraindicated: Enoxaparin (Lovenox)SQ, T.E.D. Stockings, SCD's
[2017-06-16] MEDS ORDERED: DEXTROSE 50% 50 ML SYR IV PRN (17:00)
[2017-06-16] MEDS ORDERED: GLUCOSE 10 TABS/TUBE PO PRN (17:00)
[2017-06-16] MEDS ORDERED: GLUCOSE 40% GEL 15 GM TUBE PO PRN (17:00)
[2017-06-16] MEDS ORDERED: GLUCAGON FOR INJ 1 MG VIAL SQ PRN (17:00)
[2017-06-16 17:46] VITALS: BP 151/75; PULSE 68; TEMP 37.1; O2SAT 100; Ht 188 cm; Wt 104.0 kg
[2017-06-16] MEDS ORDERED: IV FLUIDS COMPLETED PRN (19:00)
[2017-06-16 19:47] VITALS: BP 132/71; PULSE 68; TEMP 37; O2SAT 96
[2017-06-16] MEDS: SODIUM CHLORIDE 0.9% 1000ML 1,000 ML IV SCH (19:49)
[2017-06-16] MEDS: INSULIN ASPART 100 UNITS/ML 3 ML PEN SC SCH (21:00)
--- NOTE | 2017-06-16 21:12 | Orthopedic Consultation ---
Orthopedic Consultation Date of Consultation: Jun 16, 2017. Attending Physician: Kings Hancock MD, PhD Reason for Consultation: Right second toe dry gangrene History of Present Illness Mr. villarreal is a 67-year-old male with a past medical history significant for peripheral vascular disease diabetes hypertension heart disease and history of stroke who was admitted to the hospital today with worsening weakness. He is on the schedule for a right second toe amputation secondary to his dry gangrene with some exposed bone the tip of the second toe on June 21. Orthopedics was consult and for recommendations regarding his right second toe. Patient has been having dressing changes daily done to his toe. He's been having Xeroform applied followed by 4 x 4 and a loose fitting Kerlix roll 2 inches in width. He hasn't noted any significant changes in his toe recently. No redness drainage or evidence of infection. He had stopped his aspirin and Plavix 2 days ago in preparation for surgery however this is been restarted now due to concerns of his worsening weakness and altered memory. In speaking with the patient he says he just feels like he has low energy. 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 Past Medical/Surgical History Medical Problems: (1) Dizziness Status: Acute (2) Leg weakness Status: Acute (3) Stroke Status: Acute (4) Weakness Status: Acute Family History Cancer (prostate) Diabetes mellitus Heart disease Hypertension Kidney disease Kidney stones Lung disease Stroke Social History Smoking Status: Never Smoker Smokeless Tobacco Use: No Alcohol Use: none Drug Use: none Marital Status: Occupation Status: retired Allergies Coded Allergies: No Known Allergies (Verified , 06/16/17) Home Medications Scheduled Aspirin (Aspirin Ec), 81 MG PO QAM Atorvastatin (Lipitor), 80 MG PO QPM Calcium Citrate-Vitamin D (Citracal + D3 Maximum), 1 TAB PO QAM Cholecalciferol (Vitamin D3), 2,000 UNITS PO BID Clopidogrel (Plavix), 75 MG PO QAM Degarelix Acetate (Firmagon), 240 MG SC MONTHLY Escitalopram (Lexapro), 10 MG PO QAM Insulin Glargine (Lantus Solostar), 48 UNITS SC QAM Insulin Glargine (Lantus Solostar), 48 UNITS SC HS Insulin Lispro (Human) (Humalog), 1 DOSE SC ACHS Lisinopril (Zestril), 5 MG PO QAM Nebivolol Hcl (Bystolic), 5 MG PO QPM Sulfa/Trimethoprim (Bactrim Ds 800MG/160MG), 1 TAB PO BID Scheduled PRN Acetaminophen (Tylenol), 500 MG PO UD PRN for Pain Current Inpatient Medications Current Inpatient Medications Medications (Trade) Dose Ordered Sig/Ashley Route Start Time Stop Time Status Last Admin Dose Admin Miscellaneous Information (Pharmacist Discharge Med Rec Consult) 1 ea UD PRN N/A 06/16/17 16:15 07/16/17 16:14 Enoxaparin Sodium (Lovenox Inj) 40 mg Q24H SC 06/16/17 21:00 07/16/17 20:59 Sodium Chloride 1,000 ml @ 125 mls/hr Q8H IV 06/16/17 19:30 07/16/17 19:29 06/16/17 19:49 125 MLS/HR Acetaminophen (Tylenol Tab) 650 mg Q4H PRN PO 06/16/17 16:15 07/16/17 16:14 Al Hydrox/Mg Hydrox/Simethicone (Maalox Max Susp) 15 ml Q4H PRN PO 06/16/17 16:15 07/16/17 16:14 Magnesium Hydroxide (Milk Of Magnesia Susp) 30 ml Q12H PRN PO 06/16/17 16:15 07/16/17 16:14 Ondansetron HCl (Zofran Inj) 4 mg Q6H PRN IV 06/16/17 16:15 07/16/17 16:14 Polyethylene (Miralax Powder Packet) 17 gm DAILY PRN PO 06/16/17 16:15 07/16/17 16:14 Aspirin (Ecotrin Tab) 81 mg QAM PO 06/17/17 09:00 07/17/17 08:59 Atorvastatin Calcium (Lipitor Tab) 80 mg QPM PO 06/16/17 21:00 07/16/17 20:59 Clopidogrel Bisulfate (plAVix TAB) 75 mg QAM PO 06/17/17 09:00 07/17/17 08:59 Escitalopram Oxalate (Lexapro Tab) 10 mg QAM PO 06/17/17 09:00 07/17/17 08:59 Insulin Glargine (Lantus Solostar Pen) 48 units HS SC 06/16/17 21:00 07/16/17 20:59 Insulin Glargine (Lantus Solostar Pen) 48 units QAM SC 06/17/17 09:00 07/17/17 08:59 Lisinopril (Zestril Tab) 5 mg QAM PO 06/17/17 09:00 07/17/17 08:59 Trimethoprim/ Sulfamethoxazole (Septra Ds 800/ 160MG Tab) 1 tab BID PO 06/16/17 21:00 07/28/17 20:59 Nebivolol (Bystolic Tab) 5 mg QPM PO 06/16/17 21:00 07/16/17 20:59 Glucose (Glucose 40% Gel) 15-30 GRAMS 15 GRAMS... UD PRN PO 06/16/17 17:00 07/16/17 16:59 Glucose (Glucose Chew Tab) 4-8 Tablets 4 Tabl... UD PRN PO 06/16/17 17:00 07/16/17 16:59 Dextrose (Dextrose 50% 50ML Syringe) 25-50ML OF 50% DW IV FOR... UD PRN IV 06/16/17 17:00 07/16/17 16:59 Glucagon (Glucagon Inj) 1 mg UD PRN SQ 06/16/17 17:00 07/16/17 16:59 Insulin Aspart (novoLOG ASPART) SLIDING SCALE G... ACHS SC 06/16/17 21:00 07/16/17 20:59 Miscellaneous (Iv Fluids Completed) 1 ea PRN PRN N/A 06/16/17 19:00 06/16/18 18:59 Review of Systems Constitutional: + fatigue, No fever, No chills, No sweats Musculoskeletal: No joint pain, No muscle pain, No swelling, No calf pain Neurologic: + weakness, + numbness/tingling Physical Exam Date Time Temp Pulse Resp B/P (MAP) Pulse Ox O2 Delivery O2 Flow Rate FiO2 06/16/17 19:47 37.0 68 18 132/71 (91) 96 Room Air 06/16/17 17:46 37.1 68 18 151/75 100 Room Air 06/16/17 16:58 36.7 67 18 167/92 97 Room Air 06/16/17 15:07 36.8 66 18 153/69 96 Room Air 06/16/17 13:32 70 20 132/66 96 Room Air 06/16/17 12:30 62 20 151/79 96 Room Air 06/16/17 12:05 Room Air 06/16/17 12:04 70 06/16/17 12:02 72 20 165/78 96 Room Air 06/16/17 11:51 36.7 69 18 131/78 95 Room Air Examination of his right foot reveals patient to have hammertoe deformity of the 4 lesser toes. He is status post a previous amputation of the great toe distal phalanx. On the second toe he has dry gangrene with areas of necrotic eschar and reactive erythema limited to the base of the toe. There is no spreading erythema to suggest cellulitis. He is nontender to palpation. There is no active drainage. He is able to flex and extend his toes without difficulty. He does have decreased sensation to light touch which progressively improved somewhat more proximally move up his leg without any specific demarcation line. General Appearance: no apparent distress Head: normocephalic, atraumatic Extremities/Musculoskelatal: + pertinent finding Laboratory Results Last 24 Hours Test 06/16/17 12:03 06/16/17 12:08 06/16/17 12:15 06/16/17 13:14 Bedside Prothrombin Time INR 1.1 Bedside Glucose 178 mg/dl White Blood Count 11.56 K/uL Red Blood Count 5.90 M/uL Hemoglobin 15.8 g/dL Hematocrit 47.0 % Mean Corpuscular Volume 79.7 fL Mean Corpuscular Hemoglobin 26.8 pg Mean Corpuscular Hemoglobin Concent 33.6 g/dl Platelet Count 346 K/uL Mean Platelet Volume 10.6 fL Neutrophils (%) (Auto) 73.3 % Lymphocytes (%) (Auto) 16.8 % Monocytes (%) (Auto) 8.7 % Eosinophils (%) (Auto) 0.6 % Basophils (%) (Auto) 0.4 % Neutrophils # (Auto) 8.48 K/uL Lymphocytes # (Auto) 1.94 K/uL Monocytes # (Auto) 1.00 K/uL Eosinophils # (Auto) 0.07 K/uL Basophils # (Auto) 0.05 K/uL RDW Standard Deviation 40.0 fL RDW Coefficient of Variation 13.9 % Immature Granulocyte % (Auto) 0.2 % Immature Granulocyte # (Auto) 0.02 K/uL Sodium Level 131 mmol/L Potassium Level 4.5 mmol/L Chloride Level 96 mmol/L Carbon Dioxide Level 28 mmol/L Anion Gap 8.0 mmol/L 17.0 mmol/L Blood Urea Nitrogen 20 mg/dl Creatinine 1.39 mg/dl Est Creatinine Clear Calc Drug Dose 66.9 ml/min Estimated GFR () 59.9 Estimated GFR (Non- 51.7 BUN/Creatinine Ratio 14.5 Random Glucose 179 mg/dl Calcium Level 9.0 mg/dl Total Bilirubin 0.6 mg/dl Direct Bilirubin 0.1 mg/dl Aspartate Amino Transf (AST/SGOT) 21 U/L Alanine Aminotransferase (ALT/SGPT) 34 U/L Alkaline Phosphatase 118 U/L Troponin I < 0.015 ng/ml Total Protein 7.7 gm/dl Albumin 3.9 gm/dl Lipase 71 U/L Bedside Hemoglobin 16.7 g/dl Bedside Hematocrit 49 % Bedside Sodium 133 mEq/L Bedside Potassium 4.7 mEq/L Bedside Chloride 95 mEq/L Bedside Total CO2 27 mEq/l Bedside Blood Urea Nitrogen 21 mg/dl Bedside Creatinine 1.3 mg/dl Bedside Glucose (other) 182 mg/dl Bedside Ionized Calcium (Jayy) 1.19 mmol/l Urine Color YELLOW Urine Appearance CLEAR Urine pH 5.0 Urine Specific [place] 1.032 Urine Protein NEG Urine Glucose (UA) NEG Urine Ketones NEG Urine Occult Blood NEG Urine Nitrite NEG Urine Bilirubin NEG Urine Urobilinogen NEG Urine Leukocyte Esterase NEG Test 06/16/17 17:39 Bedside Glucose 86 mg/dl Review of his operative note from Dr. Carrero on May 23 states he underwent angioplasty and stenting of his right peroneal and popliteal arteries. X-rays performed on May 02, 2017 reveal evidence of his prior great toe amputation with good soft tissue coverage. He is soft tissue defect on the very distal aspect of the second toe. Hammertoe deformities noted. Also noticed some calcification of the dorsalis pedis artery seen on the AP view. CT scan performed on 06/10/2017 demonstrates the aforementioned soft tissue loss of the second toe. There is no evidence of bony erosion to suggest active osteomyelitis. 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 There is no evidence of worsening infection. The actual indication for the surgery is to prevent against developing osteomyelitis due to the exposed bone. Plan: Dressing changes to continue as he had been doing at home. This will be Xeroform over the second toe followed by 4 x 4 gauze and gently rolled to inch Kerlix roll so as to not occlude blood flow to the foot. This should be done daily by nursing. No indication for antibiotics as it relates to his second toe. The cast shoe should be worn when he is out of bed. He can weight-bear as tolerated in the cast shoe. However the cast shoe can be removed while he is in bed. Orthopedics will need to reevaluate the patient on Tuesday either as an inpatient if he still in the hospital or as an outpatient to assess his fitness to undergo surgery since it is elective and could certainly be delayed if that's better for him from a medical standpoint. Feel free to contact orthopedics with any questions.
[2017-06-16] MEDS: ATORVASTATIN 40 MG TAB PO SCH (21:32)
[2017-06-16] MEDS: ENOXAPARIN 40 MG/0.4 ML SYR SC SCH (21:32)
[2017-06-16] MEDS: SULFAMETHOXAZOLE/TRIMETHOPRIM DS 800/160MG TAB PO SCH (21:32)
[2017-06-16] MEDS: NEBIVOLOL HCL 5 MG TAB PO SCH (21:32)
[2017-06-16] MEDS: INSULIN GLARGINE SOLOSTAR 100 UNITS/ML 3 ML PEN SC SCH (21:34)
[2017-06-16 21:36] VITALS: BP 118/65; PULSE 67
[2017-06-16 23:59] VITALS: BP 131/64; PULSE 68; TEMP 37.3; O2SAT 96
[2017-06-17] VITALS (10 sets, daily range): BP systolic 117–134; BP diastolic 55–75; PULSE 58–63; TEMP 36.5–37; O2SAT 94–99
[2017-06-17] MEDS: SODIUM CHLORIDE 0.9% 1000ML 1,000 ML IV SCH ×3 (03:53→21:41)
[2017-06-17 06:58] LABS: BASO % 0.4 %; BASO ABS # 0.04 K/uL (0-0.2); COMPLETE YES; EOS % 0.9 %; HEMATOCRIT 41.8 % (42-52); IG% 0.1 %; LYMPH % 25.7 %; LYMPH ABS # 2.35 K/uL (1.2-3.4); MEAN CELL VOLUME 79.2 fL (80-100); MEAN CORPUSCULAR HEMOGLOBIN 26.1 pg (25-34); MEAN PLATELET VOLUME 9.9 fL (7.4-10.4); MONO % 10.4 %; NEUT % 62.5 %; PLATELET COUNT 244 K/uL (130-400); RED BLOOD COUNT 5.28 M/uL (4.7-6.1); WHITE BLOOD COUNT 9.15 K/uL (4.8-10.8)
[2017-06-17] MEDS: INSULIN ASPART 100 UNITS/ML 3 ML PEN SC SCH ×4 (07:00→21:40)
[2017-06-17 07:23] LABS: BUN/CREATININE RATIO 13.4 (10-20); CALCIUM 8.4 mg/dl (8.5-10.1); CREATININE 1.19 mg/dl (0.60-1.40); POTASSIUM 4.5 mmol/L (3.5-5.1)
[2017-06-17] MEDS: SULFAMETHOXAZOLE/TRIMETHOPRIM DS 800/160MG TAB PO SCH ×2 (07:48→21:49)
[2017-06-17] MEDS ORDERED: CLOPIDOGREL BISULFATE 75 MG TAB PO SCH (09:00)
[2017-06-17] MEDS ORDERED: ESCITALOPRAM OXALATE 10 MG TAB PO SCH (09:00)
[2017-06-17] MEDS ORDERED: LISINOPRIL 5 MG TAB PO SCH (09:00)
[2017-06-17] MEDS ORDERED: INSULIN GLARGINE SOLOSTAR 100 UNITS/ML 3 ML PEN SC SCH (09:00)
[2017-06-17] MEDS ORDERED: ASPIRIN 81 MG ECTAB PO SCH (09:00)
--- NOTE | 2017-06-17 11:45 | Neurology Consultation ---
Neurology Consultation Date of Consultation: Jun 17, 2017. Attending Physician: Rupa Carrasquillo MD Primary Care Physician: Yojana Hawley CRNP Reason for Consultation: Consultation for strokelike symptoms History of Present Illness Source: patient, clinic records, hospital records 67 year old right handed male presents for increasing ambulatory dysfunction and right-sided weakness and numbness. reports that he appears to have been having declining ambulatory dysfunction for the past few weeks but there appeared to be a sudden change Tuesday night into morning. He was having trouble using his hand to eat. He wasn't able to write his name. Appeared to have new or increasing right-sided weakness for about a week. Had increased headache. Had increased right-sided numbness and tingling Tuesday and . Initially the patient reported that both of his legs were weak but the feels that it's more the right leg that seems to be weak and gets stuck. She confirms that when he left the hospital after his last stroke in April he was able to ambulate without assistance. Patient feels that he's had a total of 3 strokes in the past. Her first stroke was in 2008 that was described as a left thalamic stroke with right-sided numbness and weakness. He apparently improved significantly after that stroke. Then the reports another episode in 2014 in which she was not evaluated for in which she appeared to have more trouble with thinking and increased weakness (which could've been just recurrent stroke symptoms). Last stroke was in February and was evaluated by myself. At that time had left occipital ischemic stroke with residual partial right hemianopsia. CTA of the head and neck at that time did not note any critical stenosis. March Holter monitor did not find any A. fib April TSH was unremarkable 05/19/2017 involvement A1c was 7.9, total cholesterol 186, LDL 113, HDL 38, triglycerides 175 CTA of the head and neck done this admission was reviewed and noted moderate stenosis of the right supraclinoid ICA and high-grade stenosis of the left supraclinoid ICA. Specific stenosis percentages were not given by radiology. Previous ischemic strokes were noted on CT of the head. Patient also had CT of the entire spine done with no fractures or traumatic lesions noted MRI of the brain done in February 2017 noted acute to subacute appearing moderate sized infarction involves the left occipital lobe ANIMAL HERDER distribution with additional multifocal small punctate infarcts within the left cerebral hemisphere watershed distribution within the left frontal and parietal lobes. Findings suggest left carotid thromboembolic disease. Patient is unable to get an MRI this admission due to having a recent peripheral vascular stents placed May [address] Carrero's recommendation of no MRIs for the next 6 weeks. In addition the patient had been off of antiplatelets starting June 14 for an upcoming planned elective surgery amputation of his right second toe due to dry gangrene. When reviewing previous notes from February hospital admission and neurology follow-up in April, as well as PCP notes earlier in May, no significant right-sided weakness was noted. PCP notes in early May did note ambulatory dysfunction and was felt to be at that time multifactorial including peripheral neuropathy Past Medical/Surgical History Medical Problems: (1) Dizziness Status: Acute (2) Leg weakness Status: Acute (3) Stroke Status: Acute (4) Weakness Status: Acute recent diagnosis of prostate cancer in Feb 2017 Diabetes with neuropathy Dyslipidemia Hypertension History of heart attack and CAD Peripheral vascular disease with dry gangrene of the right second toe Family History grandfather with a stroke. Otherwise family history cancer, diabetes, hypertension Social History Patient is normally independent activities of daily living. No tobacco., Occasional alcohol use may be once per month. No illegal drug use. No over-the- counter supplement or stimulant use Smokeless Tobacco Use: No Alcohol Use: none Drug Use: none Marital Status: Occupation Status: retired Allergies Coded Allergies: No Known Allergies (Verified , 06/16/17) Current Inpatient Medications Current Inpatient Medications Medications (Trade) Dose Ordered Sig/Ashley Route Start Time Stop Time Status Last Admin Dose Admin Miscellaneous Information (Pharmacist Discharge Med Rec Consult) 1 ea UD PRN N/A 06/16/17 16:15 07/16/17 16:14 Enoxaparin Sodium (Lovenox Inj) 40 mg Q24H SC 06/16/17 21:00 07/16/17 20:59 06/16/17 21:32 40 MG Sodium Chloride 1,000 ml @ 125 mls/hr Q8H IV 06/16/17 19:30 07/16/17 19:29 06/17/17 03:53 125 MLS/HR Acetaminophen (Tylenol Tab) 650 mg Q4H PRN PO 06/16/17 16:15 07/16/17 16:14 Al Hydrox/Mg Hydrox/Simethicone (Maalox Max Susp) 15 ml Q4H PRN PO 06/16/17 16:15 07/16/17 16:14 Magnesium Hydroxide (Milk Of Magnesia Susp) 30 ml Q12H PRN PO 06/16/17 16:15 07/16/17 16:14 Ondansetron HCl (Zofran Inj) 4 mg Q6H PRN IV 06/16/17 16:15 07/16/17 16:14 Polyethylene (Miralax Powder Packet) 17 gm DAILY PRN PO 06/16/17 16:15 07/16/17 16:14 Aspirin (Ecotrin Tab) 81 mg QAM PO 06/17/17 09:00 07/17/17 08:59 06/17/17 07:49 81 MG Atorvastatin Calcium (Lipitor Tab) 80 mg QPM PO 06/16/17 21:00 07/16/17 20:59 06/16/17 21:32 80 MG Clopidogrel Bisulfate (plAVix TAB) 75 mg QAM PO 06/17/17 09:00 07/17/17 08:59 06/17/17 07:48 75 MG Escitalopram Oxalate (Lexapro Tab) 10 mg QAM PO 06/17/17 09:00 07/17/17 08:59 06/17/17 07:49 10 MG Insulin Glargine (Lantus Solostar Pen) 48 units HS SC 06/16/17 21:00 07/16/17 20:59 06/16/17 21:34 48 UNITS Insulin Glargine (Lantus Solostar Pen) 48 units QAM SC 06/17/17 09:00 07/17/17 08:59 06/17/17 07:53 48 UNITS Lisinopril (Zestril Tab) 5 mg QAM PO 06/17/17 09:00 07/17/17 08:59 06/17/17 07:49 5 MG Trimethoprim/ Sulfamethoxazole (Septra Ds 800/ 160MG Tab) 1 tab BID PO 06/16/17 21:00 07/28/17 20:59 06/17/17 07:48 1 TAB Nebivolol (Bystolic Tab) 5 mg QPM PO 06/16/17 21:00 07/16/17 20:59 06/16/17 21:32 5 MG Glucose (Glucose 40% Gel) 15-30 GRAMS 15 GRAMS... UD PRN PO 06/16/17 17:00 07/16/17 16:59 Glucose (Glucose Chew Tab) 4-8 Tablets 4 Tabl... UD PRN PO 06/16/17 17:00 07/16/17 16:59 Dextrose (Dextrose 50% 50ML Syringe) 25-50ML OF 50% DW IV FOR... UD PRN IV 06/16/17 17:00 07/16/17 16:59 Glucagon (Glucagon Inj) 1 mg UD PRN SQ 06/16/17 17:00 07/16/17 16:59 Insulin Aspart (novoLOG ASPART) SLIDING SCALE G... ACHS SC 06/16/17 21:00 07/16/17 20:59 Miscellaneous (Iv Fluids Completed) 1 ea PRN PRN N/A 06/16/17 19:00 06/16/18 18:59 Review of Systems Note some mild intermittent back pain with no radiculopathy-type symptoms. reports trouble swallowing pills since last hospitalization in February. Also noted declining memory on cognition since last stroke but appeared to suddenly gotten worse a couple of days ago. Otherwise except for the above noted complete review systems otherwise negative. Physical Exam Vital Signs (Past 24 Hrs): Date Time Temp Pulse Resp B/P (MAP) Pulse Ox O2 Delivery O2 Flow Rate FiO2 06/17/17 08:00 96 Room Air 06/17/17 07:21 36.8 59 18 134/75 (94) 96 06/17/17 04:29 37.0 58 18 131/61 (84) 95 Room Air 06/17/17 04:00 Room Air 06/16/17 23:59 37.3 68 18 131/64 (86) 96 Room Air 06/16/17 23:59 Room Air 06/16/17 21:36 67 118/65 (82) 06/16/17 20:00 Room Air 06/16/17 19:47 37.0 68 18 132/71 (91) 96 Room Air 06/16/17 17:46 37.1 68 18 151/75 100 Room Air 06/16/17 16:58 36.7 67 18 167/92 97 Room Air 06/16/17 15:07 36.8 66 18 153/69 96 Room Air 06/16/17 13:32 70 20 132/66 96 Room Air 06/16/17 12:30 62 20 151/79 96 Room Air 06/16/17 12:05 Room Air 06/16/17 12:04 70 06/16/17 12:02 72 20 165/78 96 Room Air 06/16/17 11:51 36.7 69 18 131/78 95 Room Air Gen.: Patient is alert and sitting in bed, in no acute distress. HEENT: Normocephalic /atraumatic, no scleral icterus Heart: Regular rate and rhythm Extremities: Right toes are wrapped due to dry gangrene Neurological examination: Mental status: Patient is alert and oriented x3. Attention and concentration normal for the situation. fair fund of knowledge. Remote and recent memory at times seems impaired. Speech is fluent without any dysarthria or aphasia noted Cranial nerve: Visual león intact to counting (improved since last hospitalization exam). Funduscopic examination was unremarkable. No papilledema. Pupils equally round and reactive to light. Extraocular muscles intact without nystagmus. No facial asymmetry noted. Facial sensation intact. Tongue is midline. Good palatal elevation. Good shoulder shrug bilaterally. Hearing grossly intact to voice. Strength: 5/5 both proximal and distally on left upper and lower extremity. Right upper extremity 4+/5 mainly in distal hand muscles with a very mild right pronator drift. Right lower extremity 4/5 strength proximally and 3/5 distally ( significant change since last neurological exam) Sensation: Grossly intact to light touch in all extremities. No sensory extinction Deep tendon reflexes: +1 in bilateral biceps, brachioradialis and patellar. Toes were upgoing on the left and equivocal on the right Coordination: Patient had good finger to nose without dysmetria on the left but appeared to have some mild dysmetria on the right Station within the bed was normal Laboratory Results Past 24 Hours: 06/17/17 06:45 Red Blood Count 5.28, Mean Corpuscular Volume 79.2, Mean Corpuscular Hemoglobin 26.1, Mean Corpuscular Hemoglobin Concent 33.0, Mean Platelet Volume 9.9, Neutrophils (%) (Auto) 62.5, Lymphocytes (%) (Auto) 25.7, Monocytes (%) (Auto) 10.4, Eosinophils (%) (Auto) 0.9, Basophils (%) (Auto) 0.4, Neutrophils # (Auto ) 5.72, Lymphocytes # (Auto) 2.35, Monocytes # (Auto) 0.95, Eosinophils # (Auto ) 0.08, Basophils # (Auto) 0.04 06/17/17 06:45 Test 06/16/17 12:03 06/16/17 12:08 06/16/17 12:15 06/16/17 13:14 Bedside Prothrombin Time INR 1.1 (0.9-1.1) Total Bilirubin 0.6 mg/dl (0.2-1) Direct Bilirubin 0.1 mg/dl (0-0.2) Aspartate Amino Transf (AST/SGOT) 21 U/L (15-37) Alanine Aminotransferase (ALT/SGPT) 34 U/L (12-78) Alkaline Phosphatase 118 U/L (45-117) Troponin I < 0.015 ng/ml (0-0.045) Total Protein 7.7 gm/dl (6.4-8.2) Albumin 3.9 gm/dl (3.4-5.0) Lipase 71 U/L (73-393) Bedside Hemoglobin 16.7 g/dl (14.0-18.0) Bedside Hematocrit 49 % (42-52) Bedside Sodium 133 mEq/L (135-144) Bedside Potassium 4.7 mEq/L (3.3-5.0) Bedside Chloride 95 mEq/L (101-112) Bedside Total CO2 27 mEq/l (24-31) Bedside Blood Urea Nitrogen 21 mg/dl (7-18) Bedside Creatinine 1.3 mg/dl (0.6-1.3) Bedside Glucose (other) 182 mg/dl (70-99) Bedside Ionized Calcium (Jayy) 1.19 mmol/l (1.12-1.32) Urine Color YELLOW Urine Appearance CLEAR (CLEAR) Urine pH 5.0 (4.5-7.5) Urine Specific [place] 1.032 (1.000-1.030) Urine Protein NEG (NEG) Urine Glucose (UA) NEG (NEG) Urine Ketones NEG (NEG) Urine Occult Blood NEG (NEG) Urine Nitrite NEG (NEG) Urine Bilirubin NEG (NEG) Urine Urobilinogen NEG (NEG) Urine Leukocyte Esterase NEG (NEG) Test 06/17/17 06:45 06/17/17 06:52 White Blood Count 9.15 K/uL (4.8-10.8) Red Blood Count 5.28 M/uL (4.7-6.1) Hemoglobin 13.8 g/dL (14.0-18.0) Hematocrit 41.8 % (42-52) Mean Corpuscular Volume 79.2 fL (80-100) Mean Corpuscular Hemoglobin 26.1 pg (25-34) Mean Corpuscular Hemoglobin Concent 33.0 g/dl (32-36) Platelet Count 244 K/uL (130-400) Mean Platelet Volume 9.9 fL (7.4-10.4) Neutrophils (%) (Auto) 62.5 % Lymphocytes (%) (Auto) 25.7 % Monocytes (%) (Auto) 10.4 % Eosinophils (%) (Auto) 0.9 % Basophils (%) (Auto) 0.4 % Neutrophils # (Auto) 5.72 K/uL (1.4-6.5) Lymphocytes # (Auto) 2.35 K/uL (1.2-3.4) Monocytes # (Auto) 0.95 K/uL (0.11-0.59) Eosinophils # (Auto) 0.08 K/uL (0-0.5) Basophils # (Auto) 0.04 K/uL (0-0.2) RDW Standard Deviation 39.3 fL (36.4-46.3) RDW Coefficient of Variation 13.9 % (11.5-14.5) Immature Granulocyte % (Auto) 0.1 % Immature Granulocyte # (Auto) 0.01 K/uL (0.00-0.02) Anion Gap 7.0 mmol/L (3-11) Est Creatinine Clear Calc Drug Dose 76.4 ml/min Estimated GFR () 72.3 Estimated GFR (Non- 62.4 BUN/Creatinine Ratio 13.4 (10-20) Calcium Level 8.4 mg/dl (8.5-10.1) Bedside Glucose 82 mg/dl (70-99) Imaging As noted above in history of present illness Impression This is a 67-year-old right handed male who presents with sudden worsening of right-sided weakness (objectively a significant change on examination), subjective increased right-sided numbness, sudden worsening of cognition, and mild right dysmetria with upgoing toe to plantar stimulation on the left on examination. Patient has been off of antiplatelets since the due to an upcoming elective right second toe amputation for dry gangrene. Other stroke risk factors include diabetes, dyslipidemia, hypertension, peripheral vascular disease, previous left thalamic stroke and left occipital ischemic stroke with scattered embolic strokes in the left hemisphere consistent with a left carotid embolic distribution. Patient has signs of a high-grade stenosis of the left supraclinoid ICA on current CTA which was not appreciated on previous CTA. This would be in the vascular distribution of his current symptoms concerning for a symptomatic high- grade stenosis. Overall even though we're unable to get an MRI of his brain at this time due to recent peripheral vascular stenting, I am concerned that overall the patient's signs and symptoms could represent a new ischemic stroke possibly from carotid embolic source as described above. Plan Recommend vascular surgery consult for symptomatic high-grade stenosis of the left supraclinoid ICA. If local vascular surgery is unable to see the patient in the next week or if location is not amenable to evaluation or treatment in our [facility] setting, recommend transfer to [place] for neurosurgical evaluation. I have ordered an echocardiogram to complete stroke workup. Patient is unable to get an MRI of his brain due to recent peripheral vascular stenting and recommendation for no MRI for the next 6 weeks. Can try to repeat a 24-hour CT of the head to see if there is any imaged large to moderate strokes. Follow-up PT/OT and speech therapies for discharge planning. Blood pressure recommendations while in hospital 175/95-150/80 Avoid hypotension and dehydration Stroke risk factor modifications and recommendations: Blood pressure recommendations for the first month post hospital discharge 150/ 90-130/80, and after that blood pressure recommendations 130/80-110/70 Total cholesterol goal 100- 200 and LDL goal less than 70 Hemoglobin A1c goal less than 7 Encourage exercise at least 3 times a week for 30 minutes. Follow-up in neurology clinic in 1 month for post stroke hospital follow-up. If there is any questions or concerns, feel free to call/page me.
--- NOTE | 2017-06-17 14:58 | DIAGNOSTIC IMAGING REPORT ---
HEAD WITHOUT CONTRAST (CT) CT DOSE: 537.48 mGy.cm HISTORY: Stroke 24 hour f/u assess for acute CVA, cannot have MRI TECHNIQUE: Multiaxial CT images of the head were performed without the use of intravenous contrast. A dose lowering technique was utilized adhering to the principles of ALARA. Comparison: 06/16/2017 Findings: The paranasal sinuses and mastoid air cells are clear. Interval development of a low-density focus posterior left parietal vertex. This measures approximately 2 cm. There is no evidence for hemorrhage. Small old left occipital infarct is again noted. Density characteristics otherwise are unremarkable. Impression: 1. Small acute/subacute infarct left posterior parietal vertex. 2. No evidence for acute intracranial hemorrhage. The above report was generated using voice recognition software. It may contain grammatical, syntax or spelling errors. Electronically signed by: Kaiser Mejia M.D. 06/17/2017 2:57 PM Dictated Date/Time: 06/17/2017 2:46 PM
[2017-06-17] MEDS ORDERED: LVNIS40 SC (16:35)
--- NOTE | 2017-06-17 16:37 | Discharge Instructions ---
Discharge Instructions Date of Service Jun 17, 2017. Admission Reason for Admission: Stroke Like Symptoms Discharge Discharge Diagnosis / Problem: Acute CVA, high grade left internal carotid supraclinoid stenosis Discharge Goals Goal(s): Diagnostic testing, Therapeutic intervention Activity Recommendations Activity Limitations: as noted below Exercise/Sports Limitations: rest today . Instructions / Follow-Up Instructions / Follow-Up Transferred acutely to [facility] Risk Factors for Stroke: You can reduce your chances of stroke by working with your medical provider to adopt a healthy lifestyle. Some specific ways to lower your chance of stroke are: * If you are a smoker, now is the time to stop smoking cigarettes * If you are diabetic, improve the control of your blood sugars * Avoid excessive amounts of alcohol * Control high blood pressure * Lose weight if you are overweight * Be sure to lead an active lifestyle * Eat a healthy diet low in salt, cholesterol and fat You should know about other risk factors for stroke that you are unable to control. These include: * Age 55 years or older * Male gender * Certain racial groups: , or / * Family History of Stroke, Mini stroke or Heart Attack * Sickle Cell Disease Follow Up: It is important for you to keep your follow up appointments with your medical provider. Current Hospital Diet Patient's current hospital diet: Diabetes Type 2 Diet, AHA Diet (Heart Healthy) Discharge Diet Recommended Diet: AHA Diet (Heart Healthy), Diabetes Type 2 Diet Procedures Procedures Performed: CTA Head,Neck CT Head CT C-T-L SPine CT abd/pel Chest xray ECHO-result pending at time of discharge Pending Studies Studies pending at discharge: yes List of pending studies: ECHO result Laboratory Results Last 24 Hours Test 06/16/17 17:39 06/16/17 21:06 06/17/17 06:45 06/17/17 06:52 Bedside Glucose 86 mg/dl 132 mg/dl 82 mg/dl White Blood Count 9.15 K/uL Red Blood Count 5.28 M/uL Hemoglobin 13.8 g/dL Hematocrit 41.8 % Mean Corpuscular Volume 79.2 fL Mean Corpuscular Hemoglobin 26.1 pg Mean Corpuscular Hemoglobin Concent 33.0 g/dl Platelet Count 244 K/uL Mean Platelet Volume 9.9 fL Neutrophils (%) (Auto) 62.5 % Lymphocytes (%) (Auto) 25.7 % Monocytes (%) (Auto) 10.4 % Eosinophils (%) (Auto) 0.9 % Basophils (%) (Auto) 0.4 % Neutrophils # (Auto) 5.72 K/uL Lymphocytes # (Auto) 2.35 K/uL Monocytes # (Auto) 0.95 K/uL Eosinophils # (Auto) 0.08 K/uL Basophils # (Auto) 0.04 K/uL RDW Standard Deviation 39.3 fL RDW Coefficient of Variation 13.9 % Immature Granulocyte % (Auto) 0.1 % Immature Granulocyte # (Auto) 0.01 K/uL Sodium Level 132 mmol/L Potassium Level 4.5 mmol/L Chloride Level 99 mmol/L Carbon Dioxide Level 26 mmol/L Anion Gap 7.0 mmol/L Blood Urea Nitrogen 16 mg/dl Creatinine 1.19 mg/dl Est Creatinine Clear Calc Drug Dose 76.4 ml/min Estimated GFR () 72.3 Estimated GFR (Non- 62.4 BUN/Creatinine Ratio 13.4 Random Glucose 82 mg/dl Calcium Level 8.4 mg/dl Test 06/17/17 11:20 Bedside Glucose 101 mg/dl Hemoglobin A1c Test 05/19/17 08:28 Range/Units Estimated Average Glucose 180 mg/dl Hemoglobin A1c 7.9 H 4.5-5.6 % Lipid Panel Test 05/19/17 08:28 Range/Units Triglycerides Level 175 H 0-150 mg/dl Cholesterol Level 186 0-200 mg/dl HDL Cholesterol 38 mg/dl Cholesterol/HDL Ratio 4.9 LDL Cholesterol, Calculated 113 mg/dl Medical Emergencies . Who to Call and When: Medical Emergencies: Call 911 immediately if you experience any of the following warning signs and symptoms of Stroke: * Sudden numbness or weakness of the face, arm or leg, especially on one side of the body * Sudden confusion, trouble speaking or understanding * Sudden trouble seeing in one or both eyes * Sudden trouble walking, dizziness, loss of balance or coordination * Sudden severe headache with no cause Do not delay calling 911 if you experience any warning signs or symptoms of a stroke. Delay in seeking medical attention may affect what treatments can be given to you. . Non-Emergent Contact Non-Emergency issues call your: Primary Care Provider . . "Provider Documentation" section prepared by Rupa Carrasquillo. . Stroke Core Measures Reason no t-PA for Stroke: Treatment not indicated Reason no antithrom by day 2: Treatment provided - N/A Reason no antithrom at D/C: Treatment provided - N/A Reason no statin at D/C: Treatment provided - N/A Reason no anticoag w/a fib: Treatment not indicated VTE Core Measure Inpt VTE Proph given/why not?: Enoxaparin (Lovenox)SQ, T.E.D. Aki, SCD's
--- NOTE | 2017-06-17 17:07 | Discharge Summary ---
Discharge Summary Date of Service Jun 17, 2017. 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 CAD HTN HLD DM II prostate cancer Major depressive disorder Leukocytosis SADIE PAD with recent Right Lower Extremity Angiogram, Percutaneous Transluminal Angioplasty Of Right Peroneal Artery, Percutaneous Transluminal Angioplasty and Stenting of Right Popliteal Artery, popliteal artery stent placement on 05/20/17 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, 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, 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 diabetic peripheral neuropathy Progressive decline with multiple falls Mild hyponatremia Lumbar spinal stenosis Immunizations: Have You Had Influenza Vaccine: No History of Tetanus Vaccine?: No History of Pneumococcal: No History of Hepatitis B Vaccine: No Procedures: CTA Head and neck CT Head ECHO-results pending at time of discharge CT C-T-L spine Chest xray CT Abd/pel Consultations: Neurology Orthopedic Surgery Medication Reconciliation New Medications: Enoxaparin (Enoxaparin Sodium) 40 Mg/0.4 Ml Inj 40 MG SC Q24H for 7 Days Continued Medications: Acetaminophen (Tylenol) 500 Mg Tab 500 MG PO UD PRN for Pain, TAB Aspirin (Aspirin Ec) 81 Mg Tab 81 MG PO QAM Atorvastatin (Lipitor) 80 Mg Tab 80 MG PO QPM, TAB Calcium Citrate-Vitamin D (Citracal + D3 Maximum) 1 Tab Tab 1 TAB PO QAM Cholecalciferol (Vitamin D3) 2,000 Unit Tab 2000 UNITS PO BID for 90 Days, TAB 3 Refills Clopidogrel (Plavix) 75 Mg Tab 75 MG PO QAM, TAB Degarelix Acetate (Firmagon) 120 Mg Inj 240 MG SC MONTHLY Escitalopram (Lexapro) 10 Mg Tab 10 MG PO QAM, TAB Insulin Glargine (Lantus Solostar) 100 Unit/Ml Inj 48 UNITS SC QAM, PEN in the AM Insulin Glargine (Lantus Solostar) 100 Unit/Ml Inj 48 UNITS SC HS, PEN Insulin Lispro (Human) (Humalog) 100 Unit/Ml Inj 1 DOSE SC ACHS PER SLIDING SCALE Lisinopril (Zestril) 5 Mg Tab 5 MG PO QAM, TAB Nebivolol Hcl (Bystolic) 5 Mg Tab 5 MG PO QPM, TAB Discontinued Medications: Sulfa/Trimethoprim (Bactrim Ds 800MG/160MG) Tab 1 TAB PO BID, TAB STARTED 06/10/17 TO TAKE FOR 10 DAYS Discharge Exam Pt with residual right sided weakness today. Repeat head CT today confirms acute left parietal CVA. With high grade stenosis left supraclinoid int carotid artery stenosis, discussed case with Neurology here and Vascular SUrgery--> recommend transfer to tertiary care center. Pt requests [facility] Review of Systems: Constitutional: No fever, No chills Eyes: No problem reported ENT: No problem reported Respiratory: No problem reported Cardiovascular: No problem reported Abdomen: No problem reported Musculoskeletal: No problem reported Genitourinary - Male: + urinary incontinence Neurologic: + weakness, + numbness/tingling Psychiatric: No problem reported Endocrine: No problem reported Hematologic / Lymphatic: No problem reported Integumentary: No problem reported Physical Exam: General Appearance: WD/WN, no apparent distress Eyes: normal inspection, sclerae normal ENT: hearing grossly normal, pharynx normal Neck: supple, no adenopathy, no carotid bruits, trachea midline Respiratory/Chest: lungs clear, normal breath sounds, no respiratory distress, no accessory muscle use Cardiovascular: regular rate, rhythm, no edema, no gallop, no murmur Abdomen / GI: normal bowel sounds, non tender, soft, no organomegaly Extremities: + pertinent finding (rt second toe with open wound and exposed bone, no drainage) Neurologic/Psychiatric: alert, normal mood/affect, + pertinent finding (4/5 strength throughout RUE and RLE) Skin: normal color, warm/dry, no rash Hospital Course This pt is a 67 y/o male with a history of CVA x 2, CAD, HTN, HLD, PAD with previous ischemic right leg now s/p rt popliteal and peroneal stent placement, dry gangrene of rt second toe, DM II, prostate cancer and depression who presented to the ED on 06/16 with stroke like symptoms. He had new onset of right sided weakness that started the morning of admission. He had been holding his ASA and Plavix for 3 days due to upcoming toe amputation surgery. Noncontrast images from head CT show old left occipital infarct and scattered lacunar infarcts in white matter. Head CTA showed moderate stenosis of right supraclinoid internal carotid and high grade stenosis of left supraclinoid internal carotid. CTA neck unremarkable. Cervical, thoracic and lumbar spine CTs negative for acute findings and were done by ER MD due to multiple recent falls to r/o fractures. CT Abd/pel done for same reason due to trauma dn was negative. AVSS. WBC 11.56. Creatinine elevated above baseline at 1.39, BUN 20. Troponin negative serially. ECGs without ischemia and telemetry with NSR. He was not able to have MRI due to Vascular Surgeon's preference given recent stent placement. A repeat head CT noncontrast 24 hrs later confirmed a new left parietal vertex ischemic CVA. Due to the recurrent strokes in left hemisphere/carotid artery distribution, Neurology and Vascular Surgery considered his left supraclinoid carotid artery stenosis to be critical. Pt was accepted for transfer at [facility] for further Neuro IR evaluation. He was continued on ASA and Plavix, statin. He was placed on IVFs to keep his BP up and lisinopril and Bystolic were held after initial dose given to allow permissive HTN given acute CVA. Orthopedics saw the pt and evaluated the toe with dry gangrene, recommended daily loose wound dressing changes. Ortho said no antibiotics indicated, and to hold off on any amputation surgery until CVA issues resolved. Dressing changes are to be: Xeroform over the second toe followed by 4 x 4 gauze and gently rolled to inch Kerlix roll so as to not occlude blood flow to the foot. This should be done daily by nursing. The cast shoe should be worn when he is out of bed. He can weight-bear as tolerated in the cast shoe. However the cast shoe can be removed while he is in bed. Orthopedics will need to reevaluate the patient on Tuesday either as an inpatient if he still in the hospital or as an outpatient to assess his fitness to undergo surgery since it is elective and could certainly be delayed if that's better for him from a medical standpoint. SADIE--baseline creatinine 0.9, baseline eGFR 80s -Creatinine 1.39 on arrival -NSS at 125 cc/hr was given and dog food dough mixer improved to 1.19 the next day Progressive decline, multiple falls secondary to CVA and peripheral neuropathy. No fractures or trauma on multiple CT scans done in ER -PT/OT evaluations needed CAD, HTN, HLD--stable -hold lisinopril 5 mg PO qd, Bystolic 5 mg PO qd to allow permissive HTN -continue high intensity statin DM II--A1c 7.9 on 05/19 -Continue Lantus 48 units BID -Insulin sliding scale -Check BSGs q ac and qhs Prostate cancer diagnosed February 2017--followed by Urology, has mets to LNs as per pt -Pt takes Firmagon injections q month Depression -Continue Lexapro 10 mg PO qd Total Time Spent: Greater than 30 minutes This includes examination of the patient, discharge planning, medication reconciliation, and communication with other providers. Discharge Instructions Please refer to the electronic Patient Visit Report (Discharge Instructions) for additional information. Follow-Up PCP after discharge Orthopedics in 1 week Additional Copies To Yojana Hawley .BRICE; Darrell Harvey M.D.; David Carrero M.D.
[2017-06-17] MEDS: NEBIVOLOL HCL 5 MG TAB PO SCH (21:00)
[2017-06-17] MEDS: INSULIN GLARGINE SOLOSTAR 100 UNITS/ML 3 ML PEN SC SCH (21:42)
[2017-06-17] MEDS: ENOXAPARIN 40 MG/0.4 ML SYR SC SCH (21:49)
[2017-06-17] MEDS: ATORVASTATIN 40 MG TAB PO SCH (21:49)
--- NOTE | 2017-06-18 11:40 | ECHOCARDIOGRAM REPORT ---
*NOTICE TO RECEIVING LIBERTARIAN AGENCY This information is strictly Confidential and protected under [place] law. [place] law prohibits you from making any further disclosure of this information unless further disclosure is expressly permitted by the written consent of the person to whom it pertains or is authorized by law. A general authorization for the release of medical or other information is not sufficient for this purpose. Hospital accepts no responsibility if the information is made available to any other person, INCLUDING THE PATIENT. Interpretation Summary * Name: JACINTO HOPPER Study Date: 06/17/2017 01:54 PM BP: 124/66 mmHg * Patient Location: C.2T\S\S230\S\2 HR: 64 * : 1950 (M/d/yyyy) Gender: Male Height: 74 in * Age: 67 yrs Ethnicity: [place] Weight: 229 lb * Ordering Physician: Nely Renee * Referring Physician: Self, Referred * Performed By: Trisha Sheriff RCS * * Reason For Study: STROKE * BSA: 2.3 m2 * -- Conclusions -- * 1. Normal LV size, mild concentric LVH. * 2. Normal LV systolic function. LVEF 55-60%. No regional wall motion abnormalities. * 3. Mildly dilated RV. Normal RV function. * 4. Aortic valve sclerosis. * 5. Grade II diastolic dysfunction. * 6. Negative saline contrast study for interatrial shunt. * 7. Compared with prior study on 03/25/2017: No significant change. Procedure Details * A complete two-dimensional transthoracic echocardiogram was performed (2D, M-mode, Doppler and color flow Doppler). * A saline contrast injection was performed to assess for cardiac shunting. * The injection was performed through an intravenous line in the right arm. * The attending nurse who injected the saline contrast was TIERRA WHITE, RN. * A total of 20 cc of agitated saline was given. Left Ventricle * The left ventricle is grossly normal size. * There is mild concentric left ventricular hypertrophy. * Ejection Fraction = 55-60%. * No regional wall motion abnormalities noted. Right Ventricle * The right ventricle is mildly dilated. * The right ventricular systolic function is normal as assessed by tricuspid annular plane systolic excursion (TAPSE) (normal >1.5 cm). Atria * The left atrium is moderately dilated. * The right atrium is mildly dilated. * No ASD detected; PFO is not assessed. Mitral Valve * The mitral valve is grossly normal. * There is no mitral valve stenosis. * Significant mitral regurgitation is absent. Tricuspid Valve * Significant tricuspid regurgitation is absent. Aortic Valve * Aortic valve sclerosis mild, without significant aortic valvular stenosis. * There is no significant aortic regurgitation. Pulmonic Valve * The pulmonary valve is inadequately visualized, but the Doppler data is adequate for interpretation. * Pulmonic stenosis is absent. * There is no significant pulmonary regurgitation. Great Vessels * The aortic root and proximal ascending aorta are normal sized. Pericardium/Pleural * There is no pericardial effusion. Left Ventricular Diastolic Function * Diastolic dysfunction, Grade II (pseudonormalization pattern). MMode 2D Measurements and Calculations IVSd 1.5 cm IVSs 1.7 cm LVIDd 4.4 cm LVIDs 3.6 cm LVPWd 1.2 cm LVPWs 1.4 cm IVS/LVPW 1.2 FS 18.6 % EDV(Teich) 86.6 ml ESV(Teich) 53.0 ml EF(Teich) 38.8 % EDV(cubed) 83.8 ml ESV(cubed) 45.1 ml EF(cubed) 46.1 % % IVS thick 15.4 % % LVPW thick 14.0 % LV mass(C)d 225.3 grams LV mass(C)dI 97.9 grams/m\S\2 LV mass(C)s 208.3 grams LV mass(C)sI 90.5 grams/m\S\2 SV(Teich) 33.6 ml SI(Teich) 14.6 ml/m\S\2 SV(cubed) 38.7 ml SI(cubed) 16.8 ml/m\S\2 Ao root diam 3.6 cm Ao root area 10.1 cm\S\2 LA dimension 4.7 cm LA/Ao 1.3 LVOT diam 2.0 cm LVOT area 3.0 cm\S\2 LVAd ap4 32.1 cm\S\2 LVLd ap4 8.6 cm EDV(MOD-sp4) 100.4 ml EDV(sp4-el) 101.9 ml LVAs ap4 18.4 cm\S\2 LVLs ap4 6.2 cm ESV(MOD-sp4) 47.1 ml ESV(sp4-el) 46.2 ml EF(MOD-sp4) 53.1 % EF(sp4-el) 54.7 % LVAd ap2 36.0 cm\S\2 LVLd ap2 8.7 cm EDV(MOD-sp2) 120.7 ml EDV(sp2-el) 126.4 ml LVAs ap2 21.7 cm\S\2 LVLs ap2 8.0 cm ESV(MOD-sp2) 51.3 ml ESV(sp2-el) 50.0 ml EF(MOD-sp2) 57.5 % EF(sp2-el) 60.4 % LVLd %diff 1.2 % EDV(MOD-bp) 110.8 ml LVLs %diff 22.0 % ESV(MOD-bp) 55.2 ml EF(MOD-bp) 50.2 % SV(MOD-sp4) 53.3 ml SI(MOD-sp4) 23.2 ml/m\S\2 SV(MOD-sp2) 69.3 ml SI(MOD-sp2) 30.1 ml/m\S\2 SV(MOD-bp) 55.6 ml SI(MOD-bp) 24.1 ml/m\S\2 SV(sp4-el) 55.8 ml SI(sp4-el) 24.2 ml/m\S\2 SV(sp2-el) 76.4 ml SI(sp2-el) 33.2 ml/m\S\2 Doppler Measurements and Calculations MV E max destiny 84.1 cm/sec MV A max destiny 71.2 cm/sec MV E/A 1.2 MV P1/2t max destiny 89.7 cm/sec MV P1/2t 134.0 msec MVA(P1/2t) 1.6 cm\S\2 MV dec slope 196.2 cm/sec\S\2 MV dec time 0.25 sec Ao V2 max 100.9 cm/sec Ao max PG 4.1 mmHg Ao max PG (full) 1.6 mmHg JUAN(V,A) 2.4 cm\S\2 JUAN(V,D) 2.4 cm\S\2 LV V1 max PG 2.5 mmHg LV V1 max 78.6 cm/sec PA V2 max 94.9 cm/sec PA max PG 3.6 mmHg
== END 2017-06-18 01:45 | disposition short-term general hospital (02) ==
LOC: C.EDB 11:51 → C.2T 16:25 → EDBEDREQ 16:32 → ENRESERV 16:33
PROVIDERS: ADMIT Hospitalist; ATTEND Family Medicine
DX: I63.9 Cerebral infarction, unspecified (principal); I65.22 Occlusion and stenosis of left carotid artery; I25.10 Atherosclerotic heart disease of native coronary artery without angina pectoris; I10 Essential (primary) hypertension; E78.5 Hyperlipidemia, unspecified; E11.9 Type 2 diabetes mellitus without complications; C61 Malignant neoplasm of prostate; F32.9 Major depressive disorder, single episode, unspecified; D72.829 Elevated white blood cell count, unspecified; N17.9 Acute kidney failure, unspecified; I73.9 Peripheral vascular disease, unspecified; Z79.4 Long term (current) use of insulin; E87.1 Hypo-osmolality and hyponatremia; M48.061 Spinal stenosis, lumbar region without neurogenic claudication; I96 Gangrene, not elsewhere classified; Z79.82 Long term (current) use of aspirin; Z79.02 Long term (current) use of antithrombotics/antiplatelets; Z80.9 Family history of malignant neoplasm, unspecified; Z83.3 Family history of diabetes mellitus; Z82.49 Family history of ischemic heart disease and other diseases of the circulatory system; Z84.1 Family history of disorders of kidney and ureter; Z83.6 Family history of other diseases of the respiratory system; Z82.3 Family history of stroke

== ENCOUNTER 2017-07-01 12:39 | Observation (INO) | payer BC ==
[~2017-07-01] VITALS: Ht 188 cm; Wt 101.8 kg
[~2017-07-01 12:39] MED LIST changes: +ACET-1256 PO; +ATOR-26 PO; +LVNIS40 SC
--- NOTE | 2017-07-01 13:32 | EMERGENCY ROOM VISIT NOTE ---
History Report prepared by Keya: Kailyn Looney Under the Supervision of: Dr. Kyler Vilchis M.D. 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 He notes that he was at [facility] for physical therapy today when his legs gave out due to weakness. He notes that he could not control his legs and they buckled underneath him. He notes that he occasionally gets upper extremity weakness as well. 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 He has been off balance since February, which has worsened over the last three days. He notes that he was not feeling well this morning and needed to sit down due to general weakness. He has had three vascular surgeries on his right leg. He has a history of prostate cancer. He reports a recent toe amputation to his right foot. He notes that he needs an MRI of his brain and back, though he has not been medically cleared due to the recent vascular surgery. He denies any current pain. 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 Review of Systems See HPI for pertinent positives & negatives. A total of 10 systems reviewed and were otherwise negative. Past Medical & Surgical Medical Problems: (1) Amputated toe of right foot (2) Ataxia (3) Diabetes (4) Heart disease (5) Hypertension (6) left occipital stroke (7) Prostate cancer Surgical Problems: (1) H/O vascular surgery Family History Cancer (prostate) Diabetes mellitus Heart disease Hypertension Kidney disease Kidney stones Lung disease Stroke Social History Smoking Status: Never Smoker Smokeless Tobacco Use: No Drug Use: none Marital Status: Housing Status: lives with significant other Occupation Status: retired Current/Historical Medications Scheduled Aspirin (Aspirin Ec), 325 MG PO DAILY Atorvastatin (Lipitor), 40 MG PO DAILY Cholecalciferol (Vitamin D3), 2,000 UNITS PO BID Clopidogrel (Plavix), 75 MG PO QAM Escitalopram (Lexapro), 10 MG PO QAM Insulin Aspart (Novolog), 10 UNITS SQ TIDM Insulin Glargine (Lantus Solostar), 50 UNITS SC BID Insulin Lispro (Human) (Humalog), 1 DOSE SC ACHS Losartan Potassium (Cozaar), 25 MG PO DAILY Metoprolol Tartrate (Lopressor) (Lopressor), 25 MG PO BID Senna/Docusate Sod (Senokot S), 1 TAB PO DAILY Scheduled PRN Acetaminophen (Tylenol), 500 MG PO UD PRN for Pain Bisacodyl (Bisacodyl), 10 MG RE DAILY PRN for Constipation Docusate Sodium (Docusate Sodium), 100 MG PO BID PRN for Constipation Magnesium Hydroxide (Milk Of Magnesia), 30 ML PO DAILY PRN for Constipation Polyethylene (Miralax), 1 GM PO DAILY PRN for Constipation Sodium Phosphate/Biphosphate (Fleet Enema), 1 EA WI DAILY PRN for Constipation Miscellaneous Medications Dextrose (Diabetic Use) (Glucose) Allergies Coded Allergies: No Known Allergies (Verified , 07/01/17) Physical Exam Vital Signs Date Time Temp Pulse Resp B/P (MAP) Pulse Ox O2 Delivery O2 Flow Rate FiO2 07/01/17 21:40 73 16 185/99 96 Room Air 07/01/17 19:48 69 16 164/99 98 Room Air 07/01/17 18:16 62 16 145/72 98 Room Air 07/01/17 16:29 65 16 161/85 98 Room Air 07/01/17 14:50 60 16 129/58 98 Room Air 07/01/17 12:57 60 07/01/17 12:47 36.6 66 20 147/69 99 Room Air 07/01/17 12:42 99 Room Air Physical Exam GENERAL: Patient is a healthy-appearing well-nourished older male. HEAD: Normocephalic atraumatic EYES: Ocular movements intact pupils equal and react to light OROPHARYNX mucous membranes are moist no exudates present no erythema or edema present NECK: Supple no nuchal rigidity CHEST: Good equal expansion LUNGS: Clear and equal to auscultation CARDIAC: Normal S1 and S2 ABDOMEN: Soft nontender no guarding BACK: No CVA tenderness EXTREMITIES: No pain upon palpation normal muscle strength in all groups no clubbing cyanosis or edema NEURO: Patient is following commands and answering questions appropriately. Alert and oriented x3 Cranial Nerves 2-12 grossly intact Medical Decision & Procedures ER Provider Diagnostic Interpretation: Radiology results as stated below per my review and radiologist interpretation: SINGLE VIEW CHEST CLINICAL HISTORY: Strokelike symptoms. FINDINGS: An AP, portable, upright chest radiograph is compared to study dated 06/16/2017. The examination is degraded by portable technique and patient rotation. The heart is top normal for projection. There is atherosclerotic calcification of the thoracic aorta. The lungs and pleural spaces are clear. No pneumothorax is seen. The bony thorax is grossly intact. IMPRESSION: No acute cardiopulmonary abnormality. Electronically signed by: Tyler Larios M.D. 07/01/2017 2:15 PM Dictated Date/Time: 07/01/2017 2:15 PM HEAD WITHOUT CONTRAST (CT) CT DOSE: HISTORY: Mental status change Stroke TECHNIQUE: Multiaxial CT images of the head were performed without the use of intravenous contrast. A dose lowering technique was utilized adhering to the principles of ALARA. Comparison: None. Findings: The paranasal sinuses and mastoid air cells are clear. Old left occipital infarct. Mild atrophy of the cerebellar as well as cerebral hemispheres. Ventricular system is midline. No evidence for acute intracranial hemorrhage. No midline shift. Impression: 1. Small old left occipital infarct. 2. Scattered areas of chronic encephalomalacia. 3. No acute intracranial abnormality. The above report was generated using voice recognition software. It may contain grammatical, syntax or spelling errors. Electronically signed by: Kaiser Mejia M.D. 07/01/2017 3:20 PM Dictated Date/Time: 07/01/2017 3:18 PM CTA ANGIOGRAPHY OF THE HEAD CLINICAL HISTORY: Possible cerebrovascular accident. COMPARISON STUDY: CTA of the head June 16, [address] June 17, 2017. TECHNIQUE: Helical axial images of the head were obtained following uneventful intravenous administration of 119 cc of Optiray 320. A dose lowering technique was utilized adhering to the principles of ALARA. CT DOSE: 768.32 mGy.cm FINDINGS: The head CT will be reported separately. No intracranial aneurysm is identified on this examination. There is moderate atherosclerotic plaque within the bilateral cavernous carotids. Severe multifocal stenoses are identified within the intracranial vasculature, including severe stenoses of the bilateral supraclinoid ICAs. Severe stenosis of the sylvian branch of the right middle cerebral artery is noted. There is moderate to severe multifocal stenosis of the basilar artery. The left vertebral artery ends in PICA. This is unchanged. The appearance of the intracranial circulation is unchanged since CT of June 16, 2017. No dissection is identified within the intracranial vasculature. No new sites of abrupt vessel cut off identified on this examination. Severe multifocal stenoses of the left posterior cerebral artery are noted. Both anterior cerebral arteries are supplied by the left internal carotid artery. IMPRESSION: 1. Severe multifocal stenoses of the intracranial vasculature, as detailed above. No significant change since CTA of June 16, 2017. 2. No new sites of abrupt vessel cut off. No intracranial aneurysm. Electronically signed by: Patricio Santizo M.D. 07/01/2017 3:35 PM Dictated Date/Time: 07/01/2017 3:25 PM MRI OF THE LUMBAR SPINE WITHOUT CONTRAST CLINICAL HISTORY: Low back pain. Ataxia. COMPARISON STUDY: Lumbar spine CT June 16, 2017. TECHNIQUE: Utilizing a 1.5 Adelina magnet and dedicated coil, multiplanar, multiecho imaging of the lumbar spine was performed without IV contrast. FINDINGS: For purposes of numbering on this exam, the L5-S1 disc space is assigned to axial image 27 of 37. A transitional vertebra at the lumbosacral junction is designated as S1 on this exam. There is a disc space at the S1-S2 level. Lamina lumbar spine is anatomic. There is no marrow edema or marrow replacement. Discogenic changes at the L5-S1 level are noted. A 1.8 cm T1 and T2 hyperintense L3 vertebral lesion represents a hemangioma. Conus terminates at the mid L2 level. Paravertebral soft tissues are unremarkable. There is no intracanalicular mass or fluid collection. L1-2: The central canal and neural foramen are patent. There is mild facet arthrosis. L2-3: The central canal and neural foramen are patent. There is moderate facet arthrosis. L3-4: There is moderate facet arthrosis. Central canal and neural foramen are patent. L4-5: There is moderate facet arthrosis with ligamentous hypertrophy. There is mild to moderate narrowing of the central canal and lateral recesses with mild narrowing of both neural foramen. L5-S1: There is disc space narrowing. There is facet arthrosis. Central canal is patent. There is mild bilateral neural foraminal stenosis. IMPRESSION: 1. No acute abnormality within the lumbar spine by MRI. 2. Mild to moderate central canal narrowing at L4-L5 predominantly due to ligamentous hypertrophy and facet arthrosis. No disc herniation. 3. Transitional vertebra at the lumbosacral junction, as detailed above. Please see above numbering scheme of the lumbar spine. 4. Mild multilevel degenerative disc disease and moderate multilevel facet arthrosis. Electronically signed by: Patricio Santizo M.D. 07/01/2017 7:01 PM Dictated Date/Time: 07/01/2017 6:53 PM MRA HEAD WITHOUT CONTRAST HISTORY: 67 years-old Male Pt c/o ataxia acute ataxia with history of prior stroke. History of prostate cancer COMPARISON: CTA head 07/01/2017, TECHNIQUE: MRA of the head was obtained without contrast with MIP reformats FINDINGS: Both anterior cerebral artery branches are again noted to be supplied by the left ICA. Multifocal severe stenoses of the intracranial vasculature redemonstrated. There is severe stenoses involving the sylvian portion of the right middle cerebral artery on image 126 series 3. Severe stenosis involving the bilateral supraclinoid internal carotid arteries also again noted. Left vertebral artery terminates into the adjacent PICA. Multifocal stenoses of the basilar artery are redemonstrated which appear predominantly moderate, slightly better seen on comparison CTA. The bilateral posterior cerebral arteries appear patent. No aneurysm, vessel occlusion or new high-grade stenoses identified. IMPRESSION: 1. Multifocal severe stenoses of the intracranial vasculature redemonstrated without significant change from comparison. 2. No acute vessel occlusion or aneurysm identified. The above report was generated using voice recognition software. It may contain grammatical, syntax or spelling errors. Electronically signed by: Ronaldo Bernstein M.D. 07/01/2017 7:22 PM Dictated Date/Time: 07/01/2017 7:13 PM MRA NECK COMBO CLINICAL HISTORY: 67 years-old Male with Pt c/o ataxia. Acute ataxia with history of remote stroke COMPARISON STUDY: MRA and CTA of same day, CTA neck 06/16/2017 TECHNIQUE: Axial 3-D [id number] MR angiography of the neck is performed. Subsequently, following the IV administration of 10.5 cc of Gadavist coronal MR angiogram of the neck was performed to corroborate the findings. 3-D reformats are created and assessed. All measurements were calculated based on NASCET criteria. FINDINGS: The large [id number] mold hoister localizer images demonstrate no gross abnormality. Study is mildly motion degraded. The bilateral common and internal carotid arteries appear patent. Mild narrowing of the proximal portions of the ICAs bilaterally likely secondary to atherosclerotic plaquing without high-grade stenosis. Previously noted high-grade stenosis of the left vertebral artery at the level of C6 is again seen, better evaluated on comparison CTA. Decreased flow-related signal of the proximal and mid portions of the left vertebral artery are likely secondary to diminutive size of the nondominant vessel. Right vertebral artery is dominant. IMPRESSION: 1. Unchanged high-grade narrowing involves the proximal V2 segment of the left vertebral artery, better seen on comparison CTA of the neck 06/16/2017. 2. No high-grade stenosis, aneurysm or occlusion of the carotid vasculature. 3. Dominant right vertebral artery. The above report was generated using voice recognition software. It may contain grammatical, syntax or spelling errors. Electronically signed by: Ronaldo Bernstein M.D. 07/01/2017 7:45 PM Dictated Date/Time: 07/01/2017 7:37 PM BRAIN COMBO HISTORY: 67 years-old Male Pt c/o ataxia acute ataxia COMPARISON: MRI brain 03/24/2017, CT head and MRA head of same day TECHNIQUE: Multiplanar multisequence MRI of the brain was obtained both with and without the use of 10.5 mL Gadavist FINDINGS: Large field view mold hoister localizer images demonstrate no gross abnormality. Multifocal areas of restricted diffusion are noted within the watershed distribution of the left frontal and parietal lobes between the anterior and middle cerebral artery arterial distributions near the vertex. Cortically based 1.3 cm area of restricted diffusion is seen on image 22 series 4 with additional areas of cortically based restricted diffusion seen on image 20 of series 4 within this region. Punctate focal area of restricted diffusion measures 5 mm on image 21 series 4 within the posterior left frontal lobe with additional 4 to 5 mm foci of the frontal and parietal lobes respectively seen on image 17 series 4 and punctate foci within the periventricular white matter of the left cerebral hemisphere on image 16 series 4. There is mildly increased T2/FLAIR signal within this distribution with decreased signal on ADC map. Additionally, there is cortically based enhancement of the left parietal lobe as seen on images 18 through 22 of series 16 compatible with subacute etiology. Remote infarction of the left occipital and left frontal lobes redemonstrated with gliosis and encephalomalacia. No acute intracranial hemorrhage, midline shift, hydrocephalus or abnormal extra-axial collections. Mild atrophy with chronic microvascular ischemic changes redemonstrated. Degenerative changes are seen within the imaged upper cervical spine. No cerebellar tonsillar herniation. Major flow voids at the level the skull base appear patent. No mastoid effusion. Mild ethmoid sinus mucosal thickening. Prior bilateral cataract. Scalp and soft tissues are unremarkable. IMPRESSION: 1. Small to moderate sized subacute infarction of the left parietal lobe near the vertex demonstrates cortical enhancement suggesting laminar necrosis with mild associated edema. No significant mass effect, midline shift or hydrocephalus. Additionally, there are multiple acute to subacute appearing small infarctions of the left frontal and parietal lobes predominantly within the watershed distribution between the anterior and middle cerebral arterial distributions as above. 2. Remote infarctions with mild gliosis and encephalomalacia are noted involving the left frontal and left occipital lobes. 3. Mild atrophy with chronic microvascular ischemic changes. The above report was generated using voice recognition software. It may contain grammatical, syntax or spelling errors. Electronically signed by: Ronaldo Bernstein M.D. 07/01/2017 8:12 PM Dictated Date/Time: 07/01/2017 7:59 PM Laboratory Results Test 07/01/17 14:03 07/01/17 14:15 Bedside Prothrombin Time INR 1.1 (0.9-1.1) Prothrombin Time 10.9 SECONDS (9.0-12.0) Prothromb Time International Ratio 1.0 (0.9-1.1) Activated Partial Thromboplast Time 27.3 SECONDS (21.0-31.0) Partial Thromboplastin Ratio 1.1 Estimated Average Glucose 163 mg/dl Hemoglobin A1c 7.3 % (4.5-5.6) Magnesium Level 2.2 mg/dl (1.8-2.4) Total Creatine Kinase 224 U/L (39-308) Creatine Kinase MB 4.4 ng/ml (0.5-3.6) Creatine Kinase MB Ratio 2.0 (0-3.0) Troponin I < 0.015 ng/ml (0-0.045) Labs reviewed by ED physician. ECG Indication: other (bilateral leg weakness) Rate (beats per minute): 61 Rhythm: normal sinus Findings: no acute ischemic change, no ectopy ED Course 1322: Past medical records reviewed. The patient was evaluated in room B6. A complete history and physical examination was performed. 1348: Ordered NSS 1,000 ml @ 50 mls/hr 1623: I spoke with Dr. Carrero, surgeon. We discussed the patients case. He recommends the patient receives an MRI. 1909: I reassessed the patient at this time. I spoke with the patient's regarding the patient's case. 2018: I reassessed the patient at this time. He is feeling better and resting comfortably. Medical Decision Prior records/ancillary studies reviewed and summarized above. Nursing notes reviewed. Additional history obtained from . The patient's history was concerning for: Differential diagnosis: Etiologies such as metabolic, infection, hypo/hyperglycemia, electrolyte abnormalities, cardiac sources, intracerebral event, toxicologic, neurologic, as well as others were entertained. This is a 67-year-old male who presents emergency department over complaints his senior living was concerned over the patient's ataxia. The patient notes he normally has ataxia and that this is nothing no. I had a long discussion with the patient's who is asking if the patient can be cleared for an MRI of his head and his back. He was sent for CAT scan of the head which showed the old left occipital stroke meanwhile the patient's laboratory work CBC renal profile liver profile are all essentially normal. I did discuss the patient's case with Dr. Carrero who cleared the patient for his MRI. His MRI is concerning for multiple strokes and I suppose this could be the source of the patient's ataxia. I did discuss the case with the hospitalist who agreed to admit the patient. Patient family were in agreement with the treatment plan. Medication Reconcilliation Current Medication List: was personally reviewed by me Blood Pressure Screening Patient's blood pressure: Elevated blood pressure Consults Time Called: 1618 Consulting Physician: Dr. Carrero, surgeon Returned Call: [address] Carrero, surgeon. We discussed the patients case. He recommends the patient receives an MRI. Impression Primary Impression: CVA (cerebral vascular accident) Scribe Attestation The scribe's documentation has been prepared under my direction and personally reviewed by me in its entirety. I confirm that the note above accurately reflects all work, treatment, procedures, and medical decision making performed by me. Departure Information Dispostion Being Evaluated By Hospitalist Referrals No Doctor, Assigned (PCP) Patient Instructions My [facility] Problem Qualifiers Primary Impression: CVA (cerebral vascular accident) CVA mechanism: unspecified Qualified Codes: I63.9 - Cerebral infarction, unspecified
[2017-07-01] MEDS ORDERED: SODIUM CHLORIDE 0.9% 1000ML 1,000 ML IV SCH (13:48)
[2017-07-01] MEDS ORDERED: LOSA1TAB PO (13:58)
[2017-07-01] MEDS ORDERED: MOML PO (13:58)
[2017-07-01] MEDS ORDERED: ATOR-24 PO (13:58)
[2017-07-01] MEDS ORDERED: DOCU100C31 PO (13:58)
[2017-07-01] MEDS ORDERED: NVLG SQ (13:58)
[2017-07-01] MEDS ORDERED: MRLP17X PO (13:58)
[2017-07-01] MEDS ORDERED: METO25TA56 PO (13:58)
[2017-07-01] MEDS ORDERED: SODIENE PR (13:58)
[2017-07-01] MEDS ORDERED: DEXT40GE20 (13:58)
[2017-07-01] MEDS ORDERED: BISA10SU5 RE (13:58)
[2017-07-01] MEDS ORDERED: ASPI325T39 PO (13:58)
[2017-07-01] MEDS ORDERED: SENN-65 PO (13:58)
[2017-07-01] MEDS ORDERED: OPTIRAY 320 IV PRN (14:15)
--- NOTE | 2017-07-01 14:16 | DIAGNOSTIC IMAGING REPORT ---
SINGLE VIEW CHEST CLINICAL HISTORY: Strokelike symptoms. FINDINGS: An AP, portable, upright chest radiograph is compared to study dated 06/16/2017. The examination is degraded by portable technique and patient rotation. The heart is top normal for projection. There is atherosclerotic calcification of the thoracic aorta. The lungs and pleural spaces are clear. No pneumothorax is seen. The bony thorax is grossly intact. IMPRESSION: No acute cardiopulmonary abnormality. Electronically signed by: Tyler Larios M.D. 07/01/2017 2:15 PM Dictated Date/Time: 07/01/2017 2:15 PM
[2017-07-01 14:27] LABS: BASO % 0.6 %; BASO ABS # 0.06 K/uL (0-0.2); COMPLETE YES; EOS % 1.6 %; HEMATOCRIT 42.9 % (42-52); IG% 0.1 %; LYMPH ABS # 2.15 K/uL (1.2-3.4); MEAN CELL VOLUME 80.9 fL (80-100); MEAN CORPUSCULAR HEMOGLOBIN 26.4 pg (25-34); MEAN CORPUSCULAR HGB CONC 32.6 g/dl (32-36); MEAN PLATELET VOLUME 9.8 fL (7.4-10.4); MONO % 10.1 %; NEUT % 64.6 %; PLATELET COUNT 292 K/uL (130-400); WHITE BLOOD COUNT 9.33 K/uL (4.8-10.8)
[2017-07-01 14:36] LABS: PARTIAL THROMBOPLASTIN RATIO 1.1; PROTHROMBIN TIME (PATIENT) 10.9 SECONDS (9.0-12.0)
[2017-07-01 14:47] LABS: BLOOD UREA NITROGEN 21 mg/dl (7-18); BUN/CREATININE RATIO 21.6 (10-20); CALCIUM 8.9 mg/dl (8.5-10.1); CARBON DIOXIDE 30 mmol/L (21-32); CHLORIDE 101 mmol/L (98-107); CREATININE 0.98 mg/dl (0.60-1.40); GLUCOSE 123 mg/dl (70-99); MAGNESIUM 2.2 mg/dl (1.8-2.4); POTASSIUM 4.6 mmol/L (3.5-5.1); SODIUM 136 mmol/L (136-145)
--- NOTE | 2017-07-01 15:21 | DIAGNOSTIC IMAGING REPORT ---
HEAD WITHOUT CONTRAST (CT) CT DOSE: HISTORY: Mental status change Stroke TECHNIQUE: Multiaxial CT images of the head were performed without the use of intravenous contrast. A dose lowering technique was utilized adhering to the principles of ALARA. Comparison: None. Findings: The paranasal sinuses and mastoid air cells are clear. Old left occipital infarct. Mild atrophy of the cerebellar as well as cerebral hemispheres. Ventricular system is midline. No evidence for acute intracranial hemorrhage. No midline shift. Impression: 1. Small old left occipital infarct. 2. Scattered areas of chronic encephalomalacia. 3. No acute intracranial abnormality. The above report was generated using voice recognition software. It may contain grammatical, syntax or spelling errors. Electronically signed by: Kaiser Mejia M.D. 07/01/2017 3:20 PM Dictated Date/Time: 07/01/2017 3:18 PM
--- NOTE | 2017-07-01 15:36 | DIAGNOSTIC IMAGING REPORT ---
CTA ANGIOGRAPHY OF THE HEAD CLINICAL HISTORY: Possible cerebrovascular accident. COMPARISON STUDY: CTA of the head June 16, [address] June 17, 2017. TECHNIQUE: Helical axial images of the head were obtained following uneventful intravenous administration of 119 cc of Optiray 320. A dose lowering technique was utilized adhering to the principles of ALARA. CT DOSE: 768.32 mGy.cm FINDINGS: The head CT will be reported separately. No intracranial aneurysm is identified on this examination. There is moderate atherosclerotic plaque within the bilateral cavernous carotids. Severe multifocal stenoses are identified within the intracranial vasculature, including severe stenoses of the bilateral supraclinoid ICAs. Severe stenosis of the sylvian branch of the right middle cerebral artery is noted. There is moderate to severe multifocal stenosis of the basilar artery. The left vertebral artery ends in PICA. This is unchanged. The appearance of the intracranial circulation is unchanged since CT of June 16, 2017. No dissection is identified within the intracranial vasculature. No new sites of abrupt vessel cut off identified on this examination. Severe multifocal stenoses of the left posterior cerebral artery are noted. Both anterior cerebral arteries are supplied by the left internal carotid artery. IMPRESSION: 1. Severe multifocal stenoses of the intracranial vasculature, as detailed above. No significant change since CTA of June 16, 2017. 2. No new sites of abrupt vessel cut off. No intracranial aneurysm. Electronically signed by: Patricio Santizo M.D. 07/01/2017 3:35 PM Dictated Date/Time: 07/01/2017 3:25 PM
--- NOTE | 2017-07-01 19:02 | DIAGNOSTIC IMAGING REPORT ---
MRI OF THE LUMBAR SPINE WITHOUT CONTRAST CLINICAL HISTORY: Low back pain. Ataxia. COMPARISON STUDY: Lumbar spine CT June 16, 2017. TECHNIQUE: Utilizing a 1.5 Adelina magnet and dedicated coil, multiplanar, multiecho imaging of the lumbar spine was performed without IV contrast. FINDINGS: For purposes of numbering on this exam, the L5-S1 disc space is assigned to axial image 27 of 37. A transitional vertebra at the lumbosacral junction is designated as S1 on this exam. There is a disc space at the S1-S2 level. Lamina lumbar spine is anatomic. There is no marrow edema or marrow replacement. Discogenic changes at the L5-S1 level are noted. A 1.8 cm T1 and T2 hyperintense L3 vertebral lesion represents a hemangioma. Conus terminates at the mid L2 level. Paravertebral soft tissues are unremarkable. There is no intracanalicular mass or fluid collection. L1-2: The central canal and neural foramen are patent. There is mild facet arthrosis. L2-3: The central canal and neural foramen are patent. There is moderate facet arthrosis. L3-4: There is moderate facet arthrosis. Central canal and neural foramen are patent. L4-5: There is moderate facet arthrosis with ligamentous hypertrophy. There is mild to moderate narrowing of the central canal and lateral recesses with mild narrowing of both neural foramen. L5-S1: There is disc space narrowing. There is facet arthrosis. Central canal is patent. There is mild bilateral neural foraminal stenosis. IMPRESSION: 1. No acute abnormality within the lumbar spine by MRI. 2. Mild to moderate central canal narrowing at L4-L5 predominantly due to ligamentous hypertrophy and facet arthrosis. No disc herniation. 3. Transitional vertebra at the lumbosacral junction, as detailed above. Please see above numbering scheme of the lumbar spine. 4. Mild multilevel degenerative disc disease and moderate multilevel facet arthrosis. Electronically signed by: Patricio Santizo M.D. 07/01/2017 7:01 PM Dictated Date/Time: 07/01/2017 6:53 PM
--- NOTE | 2017-07-01 19:23 | DIAGNOSTIC IMAGING REPORT ---
MRA HEAD WITHOUT CONTRAST HISTORY: 67 years-old Male Pt c/o ataxia acute ataxia with history of prior stroke. History of prostate cancer COMPARISON: CTA head 07/01/2017, TECHNIQUE: MRA of the head was obtained without contrast with MIP reformats FINDINGS: Both anterior cerebral artery branches are again noted to be supplied by the left ICA. Multifocal severe stenoses of the intracranial vasculature redemonstrated. There is severe stenoses involving the sylvian portion of the right middle cerebral artery on image 126 series 3. Severe stenosis involving the bilateral supraclinoid internal carotid arteries also again noted. Left vertebral artery terminates into the adjacent PICA. Multifocal stenoses of the basilar artery are redemonstrated which appear predominantly moderate, slightly better seen on comparison CTA. The bilateral posterior cerebral arteries appear patent. No aneurysm, vessel occlusion or new high-grade stenoses identified. IMPRESSION: 1. Multifocal severe stenoses of the intracranial vasculature redemonstrated without significant change from comparison. 2. No acute vessel occlusion or aneurysm identified. The above report was generated using voice recognition software. It may contain grammatical, syntax or spelling errors. Electronically signed by: Ronaldo Bernstein M.D. 07/01/2017 7:22 PM Dictated Date/Time: 07/01/2017 7:13 PM
[2017-07-01] MEDS ORDERED: GADAVIST IV PRN (19:45)
--- NOTE | 2017-07-01 19:47 | DIAGNOSTIC IMAGING REPORT ---
MRA NECK COMBO CLINICAL HISTORY: 67 years-old Male with Pt c/o ataxia. Acute ataxia with history of remote stroke COMPARISON STUDY: MRA and CTA of same day, CTA neck 06/16/2017 TECHNIQUE: Axial 3-D [id number] MR angiography of the neck is performed. Subsequently, following the IV administration of 10.5 cc of Gadavist coronal MR angiogram of the neck was performed to corroborate the findings. 3-D reformats are created and assessed. All measurements were calculated based on NASCET criteria. FINDINGS: The large [id number] parcel wrapper localizer images demonstrate no gross abnormality. Study is mildly motion degraded. The bilateral common and internal carotid arteries appear patent. Mild narrowing of the proximal portions of the ICAs bilaterally likely secondary to atherosclerotic plaquing without high-grade stenosis. Previously noted high-grade stenosis of the left vertebral artery at the level of C6 is again seen, better evaluated on comparison CTA. Decreased flow-related signal of the proximal and mid portions of the left vertebral artery are likely secondary to diminutive size of the nondominant vessel. Right vertebral artery is dominant. IMPRESSION: 1. Unchanged high-grade narrowing involves the proximal V2 segment of the left vertebral artery, better seen on comparison CTA of the neck 06/16/2017. 2. No high-grade stenosis, aneurysm or occlusion of the carotid vasculature. 3. Dominant right vertebral artery. The above report was generated using voice recognition software. It may contain grammatical, syntax or spelling errors. Electronically signed by: Ronaldo Bernstein M.D. 07/01/2017 7:45 PM Dictated Date/Time: 07/01/2017 7:37 PM
--- NOTE | 2017-07-01 20:14 | DIAGNOSTIC IMAGING REPORT ---
BRAIN COMBO HISTORY: 67 years-old Male Pt c/o ataxia acute ataxia COMPARISON: MRI brain 03/24/2017, CT head and MRA head of same day TECHNIQUE: Multiplanar multisequence MRI of the brain was obtained both with and without the use of 10.5 mL Gadavist FINDINGS: Large field view machine deburrer localizer images demonstrate no gross abnormality. Multifocal areas of restricted diffusion are noted within the watershed distribution of the left frontal and parietal lobes between the anterior and middle cerebral artery arterial distributions near the vertex. Cortically based 1.3 cm area of restricted diffusion is seen on image 22 series 4 with additional areas of cortically based restricted diffusion seen on image 20 of series 4 within this region. Punctate focal area of restricted diffusion measures 5 mm on image 21 series 4 within the posterior left frontal lobe with additional 4 to 5 mm foci of the frontal and parietal lobes respectively seen on image 17 series 4 and punctate foci within the periventricular white matter of the left cerebral hemisphere on image 16 series 4. There is mildly increased T2/FLAIR signal within this distribution with decreased signal on ADC map. Additionally, there is cortically based enhancement of the left parietal lobe as seen on images 18 through 22 of series 16 compatible with subacute etiology. Remote infarction of the left occipital and left frontal lobes redemonstrated with gliosis and encephalomalacia. No acute intracranial hemorrhage, midline shift, hydrocephalus or abnormal extra-axial collections. Mild atrophy with chronic microvascular ischemic changes redemonstrated. Degenerative changes are seen within the imaged upper cervical spine. No cerebellar tonsillar herniation. Major flow voids at the level the skull base appear patent. No mastoid effusion. Mild ethmoid sinus mucosal thickening. Prior bilateral cataract. Scalp and soft tissues are unremarkable. IMPRESSION: 1. Small to moderate sized subacute infarction of the left parietal lobe near the vertex demonstrates cortical enhancement suggesting laminar necrosis with mild associated edema. No significant mass effect, midline shift or hydrocephalus. Additionally, there are multiple acute to subacute appearing small infarctions of the left frontal and parietal lobes predominantly within the watershed distribution between the anterior and middle cerebral arterial distributions as above. 2. Remote infarctions with mild gliosis and encephalomalacia are noted involving the left frontal and left occipital lobes. 3. Mild atrophy with chronic microvascular ischemic changes. The above report was generated using voice recognition software. It may contain grammatical, syntax or spelling errors. Electronically signed by: Ronaldo Bernstein M.D. 07/01/2017 8:12 PM Dictated Date/Time: 07/01/2017 7:59 PM
[2017-07-01] MEDS ORDERED: DOCUSATE SODIUM 100 MG CAP PO PRN (22:30)
[2017-07-01] MEDS ORDERED: MAGNESIUM HYDROXIDE SUSP 30 ML UDC PO PRN ×2 (22:30→22:45)
[2017-07-01] MEDS ORDERED: POLYETHYLENE (MIRALAX) 17 GM PACK PO PRN ×2 (22:30→22:45)
[2017-07-01] MEDS ORDERED: PHARMACIST DISCHARGE MED REC CONSULT PRN (22:45)
[2017-07-01] MEDS ORDERED: ONDANSETRON INJ 2 MG/ML 2 ML VIAL IV PRN (22:45)
[2017-07-01] MEDS ORDERED: ALUMINUM/MAGNESIUM/SIMETH (MAALOX MAX) 30 ML UDC PO PRN (22:45)
[2017-07-01] MEDS ORDERED: ACETAMINOPHEN 325 MG TAB PO PRN (22:45)
--- NOTE | 2017-07-02 00:14 | History and Physical ---
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 Following admission for ataxia 06/10, he was transferred to [facility], as based on imaging, he was thought to be high- risk for additional events. He was unable to obtain an MRI to complete an evaluation at [facility], as this was contraindicated for 8 wks following his popliteal stent placement. The pt was managed conservatively and ultimately discharged to [facility] for rehab although he indicates that he is likely to undergo carotid intervention in the future. He presents today with 3-4 days of worsening ataxia as reported by [facility]. He was unable to participate in PT today. He denies a headache, visual changes or new/worsening unilateral weakness. He describes being intermittently unable to coordinate his movements. On arrival to the ER he was sent for an MRI/MRA which had been planned regardless. This demonstrated a small to moderate sized subacute infarction of the left parietal lobe and multiple acute to subacute appearing small infarctions of the left frontal and parietal lobes. There is multifocal severe stenosis of the intracranial vasculature which was expected based on previous CT results. At the time of admission, the pt does not have any acute deficits. Past Medical/Surgical History Medical Problems: 1) DM 2) PAD - R 2nd toe amputation, L popliteal stenting 3) Hypertension 4) Left occipital CVA - residual R weakness, visual león impaired, ataxia 5) Prostate cancer - active - Bowman 4+3 and 4+4 on biopsy - receives hormonal therapy every two months 6) Carotid and vertebral stenosis 7) Peripheral neuropathy Surgical 1) Amputated toe of right foot 06/10 2) Popliteal stent 05/10 Family History Cancer (prostate) Diabetes mellitus Heart disease Hypertension Kidney disease Kidney stones Lung disease Stroke Social History Smoking Status: Never Smoker Smokeless Tobacco Use: No Drug Use: none Marital Status: Housing status: lives with significant other Occupational Status: retired Immunizations History of Influenza Vaccine: No History of Tetanus Vaccine?: No History of Pneumococcal: No History of Hepatitis B Vaccine: No Multi-Drug Resistant Organisms History of MDRO: No Allergies Coded Allergies: No Known Allergies (Verified , 07/01/17) Home Medications Scheduled Aspirin (Aspirin Ec), 325 MG PO DAILY Atorvastatin (Lipitor), 40 MG PO DAILY Cholecalciferol (Vitamin D3), 2,000 UNITS PO BID Clopidogrel (Plavix), 75 MG PO QAM Escitalopram (Lexapro), 10 MG PO QAM Insulin Aspart (Novolog), 10 UNITS SQ TIDM Insulin Glargine (Lantus Solostar), 50 UNITS SC BID Insulin Lispro (Human) (Humalog), 1 DOSE SC ACHS Losartan Potassium (Cozaar), 25 MG PO DAILY Metoprolol Tartrate (Lopressor) (Lopressor), 25 MG PO BID Senna/Docusate Sod (Senokot S), 1 TAB PO DAILY Scheduled PRN Acetaminophen (Tylenol), 500 MG PO UD PRN for Pain Bisacodyl (Bisacodyl), 10 MG RE DAILY PRN for Constipation Docusate Sodium (Docusate Sodium), 100 MG PO BID PRN for Constipation Magnesium Hydroxide (Milk Of Magnesia), 30 ML PO DAILY PRN for Constipation Polyethylene (Miralax), 1 GM PO DAILY PRN for Constipation Sodium Phosphate/Biphosphate (Fleet Enema), 1 EA TX DAILY PRN for Constipation Miscellaneous Medications Dextrose (Diabetic Use) (Glucose) Review of Systems Constitutional: + weakness, No fever, No chills, No sweats Eyes: No worsening of vision ENT: No hearing loss, No nasal symptoms Respiratory: No cough, No wheezing Cardiovascular: No chest pain, No orthopnea, No PND Abdomen: No pain, No vomiting Musculoskeletal: No joint pain Genitourinary - Male: No hematuria, No dysuria Neurologic: + weakness, + balance problems, + problem reported (Describes intermittent ataxia), No memory loss, No paralysis Psychiatric: No depression symptoms Endocrine: No fatigue Hematologic / Lymphatic: No abnormal bleeding/bruising Integumentary: No rash Allergic / Immunologic: No environmental allergies Physical Exam Vital Signs Date Time Temp Pulse Resp B/P (MAP) Pulse Ox O2 Delivery O2 Flow Rate FiO2 07/01/17 22:42 65 16 155/83 98 Room Air 07/01/17 21:40 73 16 185/99 96 Room Air 07/01/17 19:48 69 16 164/99 98 Room Air 07/01/17 18:16 62 16 145/72 98 Room Air 07/01/17 16:29 65 16 161/85 98 Room Air 07/01/17 14:50 60 16 129/58 98 Room Air 07/01/17 12:57 60 07/01/17 12:47 36.6 66 20 147/69 99 Room Air 07/01/17 12:42 99 Room Air General Appearance: WD/WN Head: normocephalic Eyes: normal inspection ENT: normal ENT inspection, pharynx normal Neck: supple, no JVD Respiratory/Chest: chest non-tender, lungs clear, normal breath sounds Cardiovascular: regular rate, rhythm, no edema, no gallop, no JVD Abdomen/GI: normal bowel sounds, non tender, soft Back: normal inspection, no CVA tenderness, no muscle spasm, normal range of motion Extremities/Musculoskelatal: normal inspection, no calf tenderness Neurologic/Psych: normal mood/affect, normal reflexes, oriented x 3, + pertinent finding (There is no facial assymetry - visual field defecits are present BL in peripheral león - he has excellent strength bilaterally and only mild R sided coordination deficits - sensation is impared in the LEs which is chronic and due to vascurar disease and DM) Skin: normal color Lymphatic: no adenopathy Diagnostics Laboratory Results Results Past 24 Hours Test 07/01/17 14:03 07/01/17 14:15 Range/Units Bedside Prothrombin Time INR 1.1 0.9-1.1 White Blood Count 9.33 4.8-10.8 K/uL Red Blood Count 5.30 4.7-6.1 M/uL Hemoglobin 14.0 14.0-18.0 g/dL Hematocrit 42.9 42-52 % Mean Corpuscular Volume 80.9 80-100 fL Mean Corpuscular Hemoglobin 26.4 25-34 pg Mean Corpuscular Hemoglobin Concent 32.6 32-36 g/dl Platelet Count 292 130-400 K/uL Mean Platelet Volume 9.8 7.4-10.4 fL Neutrophils (%) (Auto) 64.6 % Lymphocytes (%) (Auto) 23.0 % Monocytes (%) (Auto) 10.1 % Eosinophils (%) (Auto) 1.6 % Basophils (%) (Auto) 0.6 % Neutrophils # (Auto) 6.02 1.4-6.5 K/uL Lymphocytes # (Auto) 2.15 1.2-3.4 K/uL Monocytes # (Auto) 0.94 0.11-0.59 K/uL Eosinophils # (Auto) 0.15 0-0.5 K/uL Basophils # (Auto) 0.06 0-0.2 K/uL RDW Standard Deviation 41.3 36.4-46.3 fL RDW Coefficient of Variation 14.1 11.5-14.5 % Immature Granulocyte % (Auto) 0.1 % Immature Granulocyte # (Auto) 0.01 0.00-0.02 K/uL Prothrombin Time 10.9 9.0-12.0 SECONDS Prothromb Time International Ratio 1.0 0.9-1.1 Activated Partial Thromboplast Time 27.3 21.0-31.0 SECONDS Partial Thromboplastin Ratio 1.1 Sodium Level 136 136-145 mmol/L Potassium Level 4.6 3.5-5.1 mmol/L Chloride Level 101 98-107 mmol/L Carbon Dioxide Level 30 21-32 mmol/L Anion Gap 6.0 3-11 mmol/L Blood Urea Nitrogen 21 7-18 mg/dl Creatinine 0.98 0.60-1.40 mg/dl Est Creatinine Clear Calc Drug Dose 93.7 ml/min Estimated GFR () 91.4 Estimated GFR (Non- 78.9 BUN/Creatinine Ratio 21.6 10-20 Random Glucose 123 70-99 mg/dl Calcium Level 8.9 8.5-10.1 mg/dl Magnesium Level 2.2 1.8-2.4 mg/dl Total Creatine Kinase 224 39-308 U/L Creatine Kinase MB 4.4 0.5-3.6 ng/ml Creatine Kinase MB Ratio 2.0 0-3.0 Troponin I < 0.015 0-0.045 ng/ml Diagnostic Radiology MRI brain: 1. Small to moderate sized subacute infarction of the left parietal lobe near the vertex demonstrates cortical enhancement suggesting laminar necrosis with mild associated edema. No significant mass effect, midline shift or hydrocephalus. Additionally, there are multiple acute to subacute appearing small infarctions of the left frontal and parietal lobes predominantly within the watershed distribution between the anterior and middle cerebral arterial distributions as above. 2. Remote infarctions with mild gliosis and encephalomalacia are noted involving the left frontal and left occipital lobes. 3. Mild atrophy with chronic microvascular ischemic changes. MRA head: 1. Multifocal severe stenoses of the intracranial vasculature redemonstrated without significant change from comparison. 2. No acute vessel occlusion or aneurysm identified. MRI neck: 1. Unchanged high-grade narrowing involves the proximal V2 segment of the left vertebral artery, better seen on comparison CTA of the neck 06/16/2017. 2. No high-grade stenosis, aneurysm or occlusion of the carotid vasculature. 3. Dominant right vertebral artery. 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 Following admission for ataxia 06/10, he was transferred to [facility], as based on imaging, he was thought to be high- risk for additional events. He was unable to obtain an MRI to complete an evaluation at [facility], as this was contraindicated for 8 wks following his popliteal stent placement. The pt was managed conservatively and ultimately discharged to [facility] for rehab although he indicates that he is likely to undergo carotid intervention in the future. He presents today with 3-4 days of worsening ataxia as reported by [facility]. He was unable to participate in PT today. He denies a headache, visual changes or new/worsening unilateral weakness. He describes being intermittently unable to coordinate his movements. On arrival to the ER he was sent for an MRI/MRA which had been planned regardless. This demonstrated a small to moderate sized subacute infarction of the left parietal lobe and multiple acute to subacute appearing small infarctions of the left frontal and parietal lobes. There is multifocal severe stenosis of the intracranial vasculature which was expected based on previous CT results. At the time of admission, the pt does not have any acute deficits. 1) Progressive ataxia , CVA - the primary subacute infarct likely occurred a few days ago. He is currently on Plavix and ASA. We have consulted neuro. It is possible that the pt may eventually merit transfer and we should likely discuss his case with neurology at [facility]. He is assigned to telemetry with frequent neurochecks. Atorvastatin is continued. 2) DM - placed on a SS 3) HTN - will hold HTN meds as there may be small acute infarcts in addition to a subacute infarct. 4) PAD - Plavix, Statin continued Full code , SCDs Total time for this admit including review of labs, meds, imaging - discussion with pt, family, ER attending - 40 min Level of Care Telemetry Resuscitation Status FULL RESUSCITATION VTE Prophylaxis VTE Risk Assessment Done? Y/N: Yes Risk Level: Moderate Given or contraindicated: SCD's
[2017-07-02] MEDS ORDERED: IV FLUIDS COMPLETED PRN (01:00)
[2017-07-02 01:04] VITALS: BP 166/79; PULSE 74; TEMP 36.4; O2SAT 97; Ht 188 cm; Wt 101.8 kg
[2017-07-02] MEDS ORDERED: NURSING VERBAL MED ORDER ONE (01:15)
[2017-07-02] MEDS: INSULIN ASPART 100 UNITS/ML 3 ML PEN SC SCH ×4 (01:59→17:03)
[2017-07-02] MEDS: INSULIN GLARGINE SOLOSTAR 100 UNITS/ML 3 ML PEN SC SCH ×2 (02:00→08:41)
[2017-07-02 03:29] VITALS: BP 185/62; PULSE 71; TEMP 36.6; O2SAT 96
[2017-07-02] MEDS ORDERED: HEPARIN SOD 5000 UNIT/0.5 ML CARP SQ SCH (06:00)
[2017-07-02 07:21] LABS: BASO % 0.7 %; BASO ABS # 0.05 K/uL (0-0.2); COMPLETE YES; EOS % 1.7 %; HEMATOCRIT 40.8 % (42-52); IG% 0.1 %; LYMPH % 27.9 %; LYMPH ABS # 1.97 K/uL (1.2-3.4); MEAN CELL VOLUME 81.8 fL (80-100); MEAN CORPUSCULAR HEMOGLOBIN 26.5 pg (25-34); MEAN CORPUSCULAR HGB CONC 32.4 g/dl (32-36); MEAN PLATELET VOLUME 9.9 fL (7.4-10.4); MONO % 12.9 %; NEUT % 56.7 %; PLATELET COUNT 240 K/uL (130-400); RED BLOOD COUNT 4.99 M/uL (4.7-6.1); WHITE BLOOD COUNT 7.05 K/uL (4.8-10.8)
[2017-07-02 07:30] LABS: ESTIMATED AVERAGE GLUCOSE 163 mg/dl; HA1C FLAG Normal (Normal)
[2017-07-02 07:58] LABS: BUN/CREATININE RATIO 16.9 (10-20); CALCIUM 8.7 mg/dl (8.5-10.1); CREATININE 1.04 mg/dl (0.60-1.40); POTASSIUM 4.3 mmol/L (3.5-5.1)
[2017-07-02 08:00] VITALS: O2SAT 96
[2017-07-02 08:02] LABS: CHOLESTEROL/HDL RATIO 4.4
[2017-07-02] MEDS ORDERED: ATORVASTATIN 40 MG TAB PO SCH (09:00)
[2017-07-02] MEDS ORDERED: LOSARTAN POTASSIUM 25 MG TAB PO SCH (09:00)
[2017-07-02] MEDS ORDERED: ESCITALOPRAM OXALATE 10 MG TAB PO SCH (09:00)
[2017-07-02] MEDS ORDERED: CLOPIDOGREL BISULFATE 75 MG TAB PO SCH (09:00)
[2017-07-02] MEDS ORDERED: CHOLECALCIFEROL 1000 INTER.UNIT TAB PO SCH (09:00)
[2017-07-02] MEDS ORDERED: METOPROLOL TARTRATE 25 MG TAB PO SCH (09:00)
[2017-07-02] MEDS ORDERED: ASPIRIN 325 MG ECTAB PO SCH (09:00)
[2017-07-02] MEDS ORDERED: DOCUSATE SODIUM/SENNA 50/8.6MG TAB PO SCH (09:00)
--- NOTE | 2017-07-02 09:15 | Neurology Consultation ---
Neurology Consultation Date of Consultation: Jul 02, 2017. Attending Physician: Rajesh Torrez D.O. Primary Care Physician: Yojana Hawley CRNP Reason for Consultation: Patient is a 67-year-old, who was asked to see at the request of Dr. Joseph, for neurologic consultation regarding stroke. History of Present Illness Source: patient, caregiver, hospital records I 1st saw this patient in February of 2009. At that time he had some right-sided dysesthesias and weakness of an intermittent nature. MRI of the brain showed a small left thalamic lacunar type infarct. MR angiography of the neck was unremarkable. MR angiography of the morongo [place] was also described as unremarkable, but there were some irregularities and possible stenosis in segments of the left internal carotid artery distally at right middle cerebral artery. There was a possible occlusion of the A1 segment of the right anterior cerebral artery. Patient was put on 81 mg aspirin tablet daily and did well. He recovered from any symptomatology. Patient has a longstanding history of insulin-dependent diabetes. He has retinopathy post surgery and he has a significant polyneuropathy. He has a history of hypertension and recently prostate cancer. Patient has history of CO in 1994 and also has peripheral arterial disease requiring stenting. He most recently had a right popliteal stent, in April of 2017. Patient has had a partial amputation of the right great toe and last week had amputation of the right 2nd toe completely. In late February of this year, the patient noted 3-7 days of abnormal symptoms including some cognitive problems, right-handed weakness, gait problems and some numbness. At that time, he was supposed to be on aspirin and Plavix regularly for cardiac and peripheral vascular disease but he was not taking it regularly. Clinically, he had some right-sided weakness, leg greater than arm, some right homonymous hemianopsia and dysesthesias on the right side. MRI of the brain imaging revealed a moderate-size left occipital (posterior cerebral artery territory) subacute stroke with scattered subacute tiny infarcts in the left hemisphere, either embolic or watershed. He also had mild atrophy and mild diffuse nonspecific scattered small vessel ischemic changes. He was kept on aspirin and Plavix. At that time, CT angiography of the neck was considered unremarkable. On June 16, the patient presented with difficulty walking and increased right-sided weakness and numbness. There seems to have been some worsening over the few days prior to this admission. CT angiography of the head neck revealed moderate stenosis of the right supraclinoid internal carotid artery and high-grade stenosis of the left supraclinoid internal carotid artery with multiple other moderate to significant stenosis scattered throughout the morongo of [place] and intracranial circulation of major vessels. There was no significant proximal/neck internal carotid artery stenosis bilaterally, but the left vertebral was occluded in the mid neck. The right vertebral was dominant. Patient was at [facility] when he had trouble ambulating in his legs buckled. He felt the increased weakness in the right leg and specifically tells me the left leg was not weak. He did not have any increased confusion, vision problems , lightheadedness or near syncope, chest pain, headache, incontinence, or arm symptoms. He arrived to the emergency room on July 01 at 12:47 p.m. four seven hours with a temperature 36.6, pulse 66 and regular, respiratory rate 20, blood pressure 147/69, and O2 saturation 99%. His neurologic examination was largely unremarkable. MRI of the brain revealed evolving/resolving left occipital stroke with some punctate areas in the left hemisphere slightly different than the ones in February of 2017 but very similar in size and location. These are subacute infarcts and may be more consistent with watershed than embolic phenomena. CT angiography of the head and neck revealed multifocal areas of moderate to high-grade stenosis particularly the left supraclinoid ICA. The right supraclinoid ICA, the middle cerebral arteries and multiple other areas of the morongo of [place] had moderate to high-grade stenosis. 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 This is old. The right vertebral had some stenosis as did the basilar. The internal carotid arteries in the neck showed no significant stenosis. MR angiography of the head and neck did not add anything in addition that was not seen on the CT angiography of the head and neck. Laboratory studies revealed an unremarkable CBC, triglycerides elevated at 316, LDL of 40, and Chem profiles which were unremarkable except for a glucose in the range of 260-280. Recent echocardiogram was unremarkable and this was unchanged from a previous study. Patient himself is stable and has no new symptoms. He feels the right leg could be weak but he feels that his vision is back to baseline and he has no new symptoms otherwise. Past Medical/Surgical History Medical Problems: (1) CVA (cerebral vascular accident) Status: Acute (2) Dizziness Status: Acute (3) Leg weakness Status: Acute (4) Stroke Status: Acute (5) Weakness Status: Acute Insulin-dependent diabetes Hypertension Significant peripheral arterial disease post stenting CO in 1994 Post bilateral cataract surgery with diabetic retinopathy Active prostate cancer on hormonal therapy. History of left thalamic lacunar infarct February 2009 History of left occipital infarct February 2017 Family History Father age 68 of heart issues Mother in her mid 80s of a burst appendix Social History Patient never smoked cigarettes. He has less than 1 drink of alcohol per month. 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 Smoking Status: Never smoker Smokeless Tobacco Use: No Alcohol Use: occasionally Drug Use: none Marital Status: Housing Status: lives with significant other Occupation Status: retired Allergies Coded Allergies: No Known Allergies (Verified , 07/01/17) Current Inpatient Medications Current Inpatient Medications Medications (Trade) Dose Ordered Sig/Ashley Route Start Time Stop Time Status Last Admin Dose Admin Ioversol (Optiray 320) 125 ml UD PRN IV 07/01/17 14:15 07/05/17 14:14 Gadobutrol (Gadavist) 10.5 mmol UD PRN IV 07/01/17 19:45 07/05/17 19:44 Aspirin (Ecotrin Tab) 325 mg DAILY PO 07/02/17 09:00 08/01/17 08:59 Atorvastatin Calcium (Lipitor Tab) 40 mg DAILY PO 07/02/17 09:00 08/01/17 08:59 Clopidogrel Bisulfate (plAVix TAB) 75 mg QAM PO 07/02/17 09:00 08/01/17 08:59 Docusate Sodium (coLACE CAP) 100 mg BID PRN PO 07/01/17 22:30 07/31/17 22:29 Escitalopram Oxalate (Lexapro Tab) 10 mg QAM PO 07/02/17 09:00 08/01/17 08:59 Insulin Glargine (Lantus Solostar Pen) 50 units BID SC 07/02/17 01:30 08/01/17 01:29 07/02/17 02:00 50 UNITS Polyethylene (Miralax Powder Packet) 1 gm DAILY PRN PO 07/01/17 22:30 07/31/17 22:29 Senna/Docusate Sodium (Senokot S Tab) 1 tab DAILY PO 07/02/17 09:00 08/01/17 08:59 Cholecalciferol (Vitamin D Tab) 2,000 inter.unit BID PO 07/02/17 09:00 08/01/17 08:59 Miscellaneous Information (Pharmacist Discharge Med Rec Consult) 1 ea UD PRN N/A 07/01/17 22:45 07/31/17 22:44 Acetaminophen (Tylenol Tab) 650 mg Q4H PRN PO 07/01/17 22:45 07/31/17 22:44 Al Hydrox/Mg Hydrox/Simethicone (Maalox Max Susp) 15 ml Q4H PRN PO 07/01/17 22:45 07/31/17 22:44 Magnesium Hydroxide (Milk Of Magnesia Susp) 30 ml Q12H PRN PO 07/01/17 22:45 07/31/17 22:44 Ondansetron HCl (Zofran Inj) 4 mg Q6H PRN IV 07/01/17 22:45 07/31/17 22:44 Miscellaneous (Iv Fluids Completed) 1 ea PRN PRN N/A 07/02/17 01:00 07/02/18 00:59 Insulin Aspart (novoLOG ASPART) SLIDING SCALE ACHS SC 07/02/17 01:30 08/01/17 01:29 07/02/17 01:59 9 UNITS Review of Systems Constitutional: + weakness, No fever, No fatigue Eyes: No worsening of vision, No diplopia ENT: No hearing loss, No trouble swallowing Respiratory: No cough, No shortness of breath Cardiovascular: No chest pain, No palpitations Abdomen: No pain, No nausea Musculoskeletal: No joint pain, No muscle pain Genitourinary - Male: No dysuria, No urinary incontinence Neurologic: + weakness, + numbness/tingling, + balance problems, No memory loss , No vertigo Psychiatric: No depression symptoms Endocrine: No fatigue Hematologic / Lymphatic: + abnormal bleeding/bruising Integumentary: No rash Allergic / Immunologic: No hives Physical Exam Vital Signs (Past 24 Hrs): Date Time Temp Pulse Resp B/P (MAP) Pulse Ox O2 Delivery O2 Flow Rate FiO2 07/02/17 04:00 Room Air 07/02/17 03:29 36.6 71 16 185/62 (103) 96 Room Air 07/02/17 01:04 36.4 74 18 166/79 97 Room Air 07/01/17 23:31 145/82 07/01/17 23:30 69 20 97 07/01/17 23:17 141/66 07/01/17 22:42 65 16 155/83 98 Room Air 07/01/17 21:40 73 16 185/99 96 Room Air 07/01/17 19:48 69 16 164/99 98 Room Air 07/01/17 18:16 62 16 145/72 98 Room Air 07/01/17 16:29 65 16 161/85 98 Room Air 07/01/17 14:50 60 16 129/58 98 Room Air 07/01/17 12:57 60 07/01/17 12:47 36.6 66 20 147/69 99 Room Air 07/01/17 12:42 99 Room Air Patient is right-handed. The patient is awake and alert. Speech is normal without aphasia or dysarthria. Mentation and thought processes are intact with orientation and normal fund of knowledge. Mood and affect are normal and appropriate. Appearance and grooming are normal. Long and short-term memory are intact. The discs are sharp with positive venous pulsations. There are no exudates, hemorrhages, or blood vessel changes seen. Pupils are 3mm bilaterally and reactive to light. Extraocular eye muscles are intact without nystagmus. Visual acuity and visual león seem normal grossly to confrontation-he did not have any homonymous hemianopia on exam today. There are no deficits to sensation of the face bilaterally. Corneal reflexes are positive bilaterally. Facial strength and symmetry is normal bilaterally. Hearing seems intact grossly to voice and finger rub. Palate moves well without asymmetry. There is normal sternocleidomastoid and trapezius strength bilaterally. Tongue is midline with good strength bilaterally. Neck is with full range of motion without discomfort. There are no cervical bruits. There are no cranial or ocular bruits. Heart is without murmur. Cervical, thoracic, and lumbar spine are nontender to palpation. Gait is not tested but stands sitting up in bed is normal With outstretched arms there is no drift. There are no resting tremors. Patient does have very mild action tremor right greater than left side with [id number] testing. There is no ataxia with [id number] testing. There is no ataxia with [id number] testing. There is good facility in the hands. There are no abnormal involuntary movements noted otherwise. Motor strength is 5/5 diffusely in the arms bilaterally including deltoids, biceps, brachioradialis, wrist flexors and extensors, content editor, and intrinsic hand muscles. Motor strength is 5/5 diffusely in the legs bilaterally including hip flexors, quadriceps, hamstring, gastrocnemius, tibialis anterior, tibialis posterior, and peroneii muscles bilaterally. Toe extensors are normal and there is good bulk in the extensor digitorum brevis muscle bilaterally. I really do not see any focal weakness bilaterally. The limbs have good tone without rigidity or spasticity, and there is atrophy in the distal muscles of the feet bilaterally. d. Muscle bulk is normal, there is no tenderness, no myotonia noted to percussion, and no fasciculations seen. Sensory examination remarkable for decreased sensation to pin and touch in a stocking distribution to the mid lower legs bilaterally. There is marked vibratory sense loss in the feet. Reflexes are 1/4 in the biceps and triceps tendons bilaterally. Brachioradialis , quadriceps, and Achilles tendon reflexes are absent bilaterally. Toes are downgoing with plantar stimulation bilaterally. He is a surgical wound site of a healing nature at the base of the right 2nd toe Peripheral pulses are present and of normal quality distally in all four limbs. There is no peripheral edema noted. Laboratory Results Past 24 Hours: 07/02/17 06:42 Red Blood Count 4.99, Mean Corpuscular Volume 81.8, Mean Corpuscular Hemoglobin 26.5, Mean Corpuscular Hemoglobin Concent 32.4, Mean Platelet Volume 9.9, Neutrophils (%) (Auto) 56.7, Lymphocytes (%) (Auto) 27.9, Monocytes (%) (Auto) 12.9, Eosinophils (%) (Auto) 1.7, Basophils (%) (Auto) 0.7, Neutrophils # (Auto ) 3.99, Lymphocytes # (Auto) 1.97, Monocytes # (Auto) 0.91, Eosinophils # (Auto ) 0.12, Basophils # (Auto) 0.05 07/02/17 06:42 Test 07/01/17 14:03 07/01/17 14:15 07/02/17 00:39 07/02/17 06:42 Bedside Prothrombin Time INR 1.1 (0.9-1.1) Prothrombin Time 10.9 SECONDS (9.0-12.0) Prothromb Time International Ratio 1.0 (0.9-1.1) Activated Partial Thromboplast Time 27.3 SECONDS (21.0-31.0) Partial Thromboplastin Ratio 1.1 Estimated Average Glucose 163 mg/dl Hemoglobin A1c 7.3 % (4.5-5.6) Magnesium Level 2.2 mg/dl (1.8-2.4) Total Creatine Kinase 224 U/L (39-308) Creatine Kinase MB 4.4 ng/ml (0.5-3.6) Creatine Kinase MB Ratio 2.0 (0-3.0) Troponin I < 0.015 ng/ml (0-0.045) Bedside Glucose 265 mg/dl (70-99) White Blood Count 7.05 K/uL (4.8-10.8) Red Blood Count 4.99 M/uL (4.7-6.1) Hemoglobin 13.2 g/dL (14.0-18.0) Hematocrit 40.8 % (42-52) Mean Corpuscular Volume 81.8 fL (80-100) Mean Corpuscular Hemoglobin 26.5 pg (25-34) Mean Corpuscular Hemoglobin Concent 32.4 g/dl (32-36) Platelet Count 240 K/uL (130-400) Mean Platelet Volume 9.9 fL (7.4-10.4) Neutrophils (%) (Auto) 56.7 % Lymphocytes (%) (Auto) 27.9 % Monocytes (%) (Auto) 12.9 % Eosinophils (%) (Auto) 1.7 % Basophils (%) (Auto) 0.7 % Neutrophils # (Auto) 3.99 K/uL (1.4-6.5) Lymphocytes # (Auto) 1.97 K/uL (1.2-3.4) Monocytes # (Auto) 0.91 K/uL (0.11-0.59) Eosinophils # (Auto) 0.12 K/uL (0-0.5) Basophils # (Auto) 0.05 K/uL (0-0.2) RDW Standard Deviation 42.4 fL (36.4-46.3) RDW Coefficient of Variation 14.2 % (11.5-14.5) Immature Granulocyte % (Auto) 0.1 % Immature Granulocyte # (Auto) 0.01 K/uL (0.00-0.02) Anion Gap 6.0 mmol/L (3-11) Est Creatinine Clear Calc Drug Dose 86.6 ml/min Estimated GFR () 85.1 Estimated GFR (Non- 73.4 BUN/Creatinine Ratio 16.9 (10-20) Calcium Level 8.7 mg/dl (8.5-10.1) Triglycerides Level 316 mg/dl (0-150) Cholesterol Level 133 mg/dl (0-200) HDL Cholesterol 30 mg/dl LDL Cholesterol, Calculated 40 mg/dl VLDL Cholesterol, Calculated 63 mg/dl Cholesterol/HDL Ratio 4.4 Date/Time Source Procedure Growth Status 07/02/17 01:30 Nasal MRSA DNA Surveillance Screen - Final Specimen Negative for MRSA by DNA Probe Complete Imaging BRAIN COMBO HISTORY: 67 years-old Male Pt c/o ataxia acute ataxia COMPARISON: MRI brain 03/24/2017, CT head and MRA head of same day TECHNIQUE: Multiplanar multisequence MRI of the brain was obtained both with and without the use of 10.5 mL Gadavist FINDINGS: Large field view dope edger localizer images demonstrate no gross abnormality. Multifocal areas of restricted diffusion are noted within the watershed distribution of the left frontal and parietal lobes between the anterior and middle cerebral artery arterial distributions near the vertex. Cortically based 1.3 cm area of restricted diffusion is seen on image 22 series 4 with additional areas of cortically based restricted diffusion seen on image 20 of series 4 within this region. Punctate focal area of restricted diffusion measures 5 mm on image 21 series 4 within the posterior left frontal lobe with additional 4 to 5 mm foci of the frontal and parietal lobes respectively seen on image 17 series 4 and punctate foci within the periventricular white matter of the left cerebral hemisphere on image 16 series 4. There is mildly increased T2/FLAIR signal within this distribution with decreased signal on ADC map. Additionally, there is cortically based enhancement of the left parietal lobe as seen on images 18 through 22 of series 16 compatible with subacute etiology. Remote infarction of the left occipital and left frontal lobes redemonstrated with gliosis and encephalomalacia. No acute intracranial hemorrhage, midline shift, hydrocephalus or abnormal extra-axial collections. Mild atrophy with chronic microvascular ischemic changes redemonstrated. Degenerative changes are seen within the imaged upper cervical spine. No cerebellar tonsillar herniation. Major flow voids at the level the skull base appear patent. No mastoid effusion. Mild ethmoid sinus mucosal thickening. Prior bilateral cataract. Scalp and soft tissues are unremarkable. IMPRESSION: 1. Small to moderate sized subacute infarction of the left parietal lobe near the vertex demonstrates cortical enhancement suggesting laminar necrosis with mild associated edema. No significant mass effect, midline shift or hydrocephalus. Additionally, there are multiple acute to subacute appearing small infarctions of the left frontal and parietal lobes predominantly within the watershed distribution between the anterior and middle cerebral arterial distributions as above. 2. Remote infarctions with mild gliosis and encephalomalacia are noted involving the left frontal and left occipital lobes. 3. Mild atrophy with chronic microvascular ischemic changes. The above report was generated using voice recognition software. It may contain grammatical, syntax or spelling errors. Electronically signed by: Ronaldo Bernstein M.D. 07/01/2017 8:12 PM CTA ANGIOGRAPHY OF THE HEAD CLINICAL HISTORY: Possible cerebrovascular accident. COMPARISON STUDY: CTA of the head June 16, [address] June 17, 2017. TECHNIQUE: Helical axial images of the head were obtained following uneventful intravenous administration of 119 cc of Optiray 320. A dose lowering technique was utilized adhering to the principles of ALARA. CT DOSE: 768.32 mGy.cm FINDINGS: The head CT will be reported separately. No intracranial aneurysm is identified on this examination. There is moderate atherosclerotic plaque within the bilateral cavernous carotids. Severe multifocal stenoses are identified within the intracranial vasculature, including severe stenoses of the bilateral supraclinoid ICAs. Severe stenosis of the sylvian branch of the right middle cerebral artery is noted. There is moderate to severe multifocal stenosis of the basilar artery. The left vertebral artery ends in PICA. This is unchanged. The appearance of the intracranial circulation is unchanged since CT of June 16, 2017. No dissection is identified within the intracranial vasculature. No new sites of abrupt vessel cut off identified on this examination. Severe multifocal stenoses of the left posterior cerebral artery are noted. Both anterior cerebral arteries are supplied by the left internal carotid artery. IMPRESSION: 1. Severe multifocal stenoses of the intracranial vasculature, as detailed above. No significant change since CTA of June 16, 2017. 2. No new sites of abrupt vessel cut off. No intracranial aneurysm. Electronically signed by: Patricio Santizo M.D. 07/01/2017 3:35 PM MRA HEAD WITHOUT CONTRAST HISTORY: 67 years-old Male Pt c/o ataxia acute ataxia with history of prior stroke. History of prostate cancer COMPARISON: CTA head 07/01/2017, TECHNIQUE: MRA of the head was obtained without contrast with MIP reformats FINDINGS: Both anterior cerebral artery branches are again noted to be supplied by the left ICA. Multifocal severe stenoses of the intracranial vasculature redemonstrated. There is severe stenoses involving the sylvian portion of the right middle cerebral artery on image 126 series 3. Severe stenosis involving the bilateral supraclinoid internal carotid arteries also again noted. Left vertebral artery terminates into the adjacent PICA. Multifocal stenoses of the basilar artery are redemonstrated which appear predominantly moderate, slightly better seen on comparison CTA. The bilateral posterior cerebral arteries appear patent. No aneurysm, vessel occlusion or new high-grade stenoses identified. IMPRESSION: 1. Multifocal severe stenoses of the intracranial vasculature redemonstrated without significant change from comparison. 2. No acute vessel occlusion or aneurysm identified. The above report was generated using voice recognition software. It may contain grammatical, syntax or spelling errors. Electronically signed by: Ronaldo Bernstein M.D. 07/01/2017 7:22 PM MRA NECK COMBO CLINICAL HISTORY: 67 years-old Male with Pt c/o ataxia. Acute ataxia with history of remote stroke COMPARISON STUDY: MRA and CTA of same day, CTA neck 06/16/2017 TECHNIQUE: Axial 3-D [id number] MR angiography of the neck is performed. Subsequently, following the IV administration of 10.5 cc of Gadavist coronal MR angiogram of the neck was performed to corroborate the findings. 3-D reformats are created and assessed. All measurements were calculated based on NASCET criteria. FINDINGS: The large [id number]-[id number] dope edger localizer images demonstrate no gross abnormality. Study is mildly motion degraded. The bilateral common and internal carotid arteries appear patent. Mild narrowing of the proximal portions of the ICAs bilaterally likely secondary to atherosclerotic plaquing without high-grade stenosis. Previously noted high-grade stenosis of the left vertebral artery at the level of C6 is again seen, better evaluated on comparison CTA. Decreased flow-related signal of the proximal and mid portions of the left vertebral artery are likely secondary to diminutive size of the nondominant vessel. Right vertebral artery is dominant. IMPRESSION: 1. Unchanged high-grade narrowing involves the proximal V2 segment of the left vertebral artery, better seen on comparison CTA of the neck 06/16/2017. 2. No high-grade stenosis, aneurysm or occlusion of the carotid vasculature. 3. Dominant right vertebral artery. The above report was generated using voice recognition software. It may contain grammatical, syntax or spelling errors. Electronically signed by: Ronaldo Bernstein M.D. 07/01/2017 7:45 PM Impression 1. Subacute infarcts in the left hemisphere consistent with a watershed distribution. They are very similar in size and location to those seen in February of 2017. He does not have any new clinical findings referable to this MRI. I do not see any focal weakness and he has no ataxia of the limbs. He does have a severe polyneuropathy involving predominantly sensory fibers likely from diabetes. This would give him a gait disturbance/sensory ataxia. He has significant multifocal bilateral areas of moderate to significant stenosis seen on CT angiography of the head in the distal carotids and other great vessels of the morongo of [place]. He has a left vertebral occlusion. The left supra clinoid area ICA does have a significant stenosis and may be responsible for the watershed pattern more distally in the left hemisphere. He has no cardiac abnormalities by history or exam to suggest embolic infarct from the heart. I do not believe his MRI findings are embolic in nature. Patient has multiple risk factors for his diffuse vascular disease including hypertension and diabetes. He has elevated triglycerides as well. These events have happened despite aspirin and Plavix 2. History of left occipital stroke, February 2017, giving him right-sided weakness and right homonymous hemianopsia. This clinically seems to have improved 3. Generalized polyneuropathy involving predominantly sensory fibers, most likely secondary to diabetes. This would give him a sensory ataxia/gait disturbance. 4. Diffuse peripheral arterial disease, post right popliteal shunt earlier this fall. Post toe amputation recently as well. Plan 1. I see no need for additional neurologic testing at this time as he has had all CT and MRI studies that he could for his head and neck. 2. I am not sure what would help this patient clinically given the fact that he is already on aspirin and Plavix. I am not sure there is a better medication to treat. He is not a candidate for anticoagulation. There has never been any proof that anticoagulation helps small or large vessel ischemic disease. Aggrenox could be given but I am not sure it superior to the combination of aspirin and Plavix 3. I would consider a neurovascular surgery/Stroke service consultation at either [facility] or [facility] 4. Control blood pressure as you are doing for a mean arterial pressure of approximately 100 5. Control glucoses best as possible, at least to obtain a control less than 200 , ideally 150 6. This patient would be a candidate for high-dose statin usage for lipid control given his significant atherosclerotic/thrombotic disease Unfortunately, I am not sure what else I can do to help this patient. I spent a total of 115 minutes with this patient, reviewing records, reviewing MRI and CT films and reports with the radiologist, Dr. Santizo, from the April 2017 admission, the May 2017 admission, and this admission, discussion with the patient at bedside, and discussion with Dr. Torrez regarding this case.
[2017-07-02 12:14] VITALS: BP 109/68; PULSE 74; TEMP 36.3; O2SAT 95
--- NOTE | 2017-07-02 14:47 | Discharge Instructions ---
Discharge Instructions Date of Service Jul 02, 2017. Admission Reason for Admission: Ataxia, Cva Discharge Discharge Diagnosis / Problem: Ataxia, CVA Discharge Goals Goal(s): Decrease discomfort, Improve function, Increase independence, Improve disease control, Learn about illness, Diagnostic testing, Prevent Disease Progression Activity Recommendations Activity Limitations: resume your previous activity Exercise/Sports Limitations: as tolerated . Instructions / Follow-Up Instructions / Follow-Up Patient to be discharged home Noted subacute infarcts on MRI Patient will benefit from intense neurology/neurosurgery follow up on discharge Follow up with neurosurgery and neurology at the [facility] in 1-2 weeks Continue all home medications including aspirin and plavix If worsening numbness, weakness, difficulty swallowing/speaking, chest pain, shortness of breath or visual changes please report to ER Follow up with Yojana Hawley in 1-2 weeks Risk Factors for Stroke: You can reduce your chances of stroke by working with your medical provider to adopt a healthy lifestyle. Some specific ways to lower your chance of stroke are: * If you are a smoker, now is the time to stop smoking cigarettes * If you are diabetic, improve the control of your blood sugars * Avoid excessive amounts of alcohol * Control high blood pressure * Lose weight if you are overweight * Be sure to lead an active lifestyle * Eat a healthy diet low in salt, cholesterol and fat You should know about other risk factors for stroke that you are unable to control. These include: * Age 55 years or older * Male gender * Certain racial groups: , or / * Family History of Stroke, Mini stroke or Heart Attack * Sickle Cell Disease Follow Up: It is important for you to keep your follow up appointments with your medical provider. Current Hospital Diet Patient's current hospital diet: Diabetes Type 2 Diet, AHA Diet (Heart Healthy) Discharge Diet Recommended Diet: AHA Diet (Heart Healthy), Diabetes Type 2 Diet, Low Fat Diet Pending Studies Studies pending at discharge: no Laboratory Results Hemoglobin A1c Test 07/01/17 14:15 Range/Units Estimated Average Glucose 163 mg/dl Hemoglobin A1c 7.3 H 4.5-5.6 % Lipid Panel Test 07/02/17 06:42 Range/Units Triglycerides Level 316 H 0-150 mg/dl Cholesterol Level 133 0-200 mg/dl HDL Cholesterol 30 mg/dl Cholesterol/HDL Ratio 4.4 LDL Cholesterol, Calculated 40 mg/dl Medical Emergencies . Who to Call and When: Medical Emergencies: Call 911 immediately if you experience any of the following warning signs and symptoms of Stroke: * Sudden numbness or weakness of the face, arm or leg, especially on one side of the body * Sudden confusion, trouble speaking or understanding * Sudden trouble seeing in one or both eyes * Sudden trouble walking, dizziness, loss of balance or coordination * Sudden severe headache with no cause Do not delay calling 911 if you experience any warning signs or symptoms of a stroke. Delay in seeking medical attention may affect what treatments can be given to you. . Non-Emergent Contact Non-Emergency issues call your: Primary Care Provider Call Non-Emergent contact if: you have any medication questions . . "Provider Documentation" section prepared by Rajesh Torrez. . Stroke Core Measures Reason no t-PA for Stroke: Treatment not indicated Reason no antithrom by day 2: Treatment provided - N/A Reason no antithrom at D/C: Treatment provided - N/A Reason no statin at D/C: Treatment provided - N/A Reason no anticoag w/a fib: Treatment not indicated VTE Core Measure Inpt VTE Proph given/why not?: Other Anticoagulation
--- NOTE | 2017-07-02 15:13 | Discharge Summary ---
Discharge Summary Date of Service Jul 02, 2017. Discharge Summary Admission Date: Jul 01, 2017 at 22:38 Discharge Date: Jul 02, 2017 Discharge Disposition: Home Principal Diagnosis: Subacute stroke Immunizations: Have You Had Influenza Vaccine: No History of Tetanus Vaccine?: No History of Pneumococcal: No History of Hepatitis B Vaccine: No Consultations: Neurology Medication Reconciliation Continued Medications: Acetaminophen (Tylenol) 500 Mg Tab 500 MG PO UD PRN for Pain, TAB Aspirin (Aspirin Ec) 325 Mg Tab 325 MG PO DAILY Atorvastatin (Lipitor) 40 Mg Tab 40 MG PO DAILY, TAB Bisacodyl (Bisacodyl) 10 Mg Sup 10 MG RE DAILY PRN for Constipation Cholecalciferol (Vitamin D3) 2,000 Unit Tab 2000 UNITS PO BID for 90 Days Clopidogrel (Plavix) 75 Mg Tab 75 MG PO QAM Dextrose (Diabetic Use) (Glucose) 40 % Gel Docusate Sodium (Docusate Sodium) 100 Mg Cap 100 MG PO BID PRN for Constipation Escitalopram (Lexapro) 10 Mg Tab 10 MG PO QAM Insulin Aspart (Novolog) 100 Units/Ml Inj 10 UNITS SQ TIDM Insulin Glargine (Lantus Solostar) 100 Unit/Ml Inj 50 UNITS SC BID Insulin Lispro (Human) (Humalog) 100 Unit/Ml Inj 1 DOSE SC ACHS PER SLIDING SCALE Losartan Potassium (Cozaar) 25 Mg Tab 25 MG PO DAILY, TAB Magnesium Hydroxide (Milk Of Magnesia) 30 Ml Susp 30 ML PO DAILY PRN for Constipation Metoprolol Tartrate (Lopressor) (Lopressor) 25 Mg Tab 25 MG PO BID, TAB Polyethylene (Miralax) 17 Gm Pow 1 GM PO DAILY PRN for Constipation Senna/Docusate Sod (Senokot S) 1 Tab Tab 1 TAB PO DAILY, TAB Sodium Phosphate/Biphosphate (Fleet Enema) Susanne 1 EA [place] DAILY PRN for Constipation, BTL Discharge Exam Review of Systems: Constitutional: No fever, No chills, No sweats, No weakness Eyes: No worsening of vision, No eye pain, No redness, No discharge Respiratory: No cough, No sputum, No wheezing, No shortness of breath Cardiovascular: No chest pain, No orthopnea, No PND, No edema Abdomen: No pain, No nausea, No vomiting, No diarrhea, No constipation Musculoskeletal: No joint pain, No muscle pain, No swelling Genitourinary - Male: No hematuria, No dysuria, No urinary frequency, No urinary urgency Neurologic: No memory loss, No paralysis, No weakness, No numbness/tingling Psychiatric: No depression symptoms, No anhedonism, No anxiety, No insomnia Endocrine: No fatigue, No excessive thirst Integumentary: No rash, No itch Physical Exam: General Appearance: WD/WN, no apparent distress Eyes: normal inspection, PERRL, EOMI, sclerae normal Neck: supple, no adenopathy, thyroid normal, no JVD Respiratory/Chest: chest non-tender, lungs clear, normal breath sounds, no respiratory distress Cardiovascular: regular rate, rhythm, no edema, no gallop, no JVD Abdomen / GI: normal bowel sounds, non tender, soft, no organomegaly Extremities: normal inspection, no calf tenderness, normal capillary refill , no pedal edema Neurologic/Psychiatric: alert, normal mood/affect, normal reflexes, oriented x 3 Skin: normal color, warm/dry, no rash Lymphatic: no adenopathy Hospital Course Subacute infarcts in the left hemisphere consistent with a watershed distribution. Imaging: Brain MRI:. Small to moderate sized subacute infarction of the left parietal lobe near the vertex demonstrates cortical enhancement suggesting laminar necrosis with mild associated edema. No significant mass effect, midline shift or hydrocephalus. Additionally, there are multiple acute to subacute appearing small infarctions of the left frontal and parietal lobes predominantly within the watershed distribution between the anterior and middle cerebral arterial distributions as above. Remote infarctions with mild gliosis and encephalomalacia are noted involving the left frontal and left occipital lobes. Mild atrophy with chronic microvascular ischemic changes. Head MRA:Multifocal severe stenoses of the intracranial vasculature redemonstrated without significant change from comparison. No acute vessel occlusion or aneurysm identified. Neck MRA: Unchanged high-grade narrowing involves the proximal V2 segment of the left vertebral artery, better seen on comparison CTA of the neck 06/16/2017. No high-grade stenosis, aneurysm or occlusion of the carotid vasculature. Dominant right vertebral artery. CTA head: Severe multifocal stenoses of the intracranial vasculature, as detailed above. No significant change since CTA of June 16, 2017. No new sites of abrupt vessel cut off. No intracranial aneurysm. He has no cardiac abnormalities by history or exam to suggest embolic infarct from the heart. I do not believe his MRI findings are embolic in nature. Thus anticoag is likely to be of no benefit Patient has multiple risk factors for his diffuse vascular disease including hypertension and diabetes. He has elevated triglycerides as well. History of left occipital stroke, February 2017, giving him right-sided weakness and right homonymous hemianopsia. 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 Diffuse peripheral arterial disease, post right popliteal shunt earlier this fall. Post toe amputation recently as well. These findings are comparable in size and location to those seen in February of 2017, this was discussed with radiology and neurology No focal defecits on exam Phys therapy eval, OK to DC home at this time He does have a severe polyneuropathy involving predominantly sensory fibers likely from diabetes. Cont ASA, plavix and lipitor Patient will benefit from follow up at tertiary care center where he will require neurology/neurosurgery care Total Time Spent: Greater than 30 minutes This includes examination of the patient, discharge planning, medication reconciliation, and communication with other providers. Discharge Instructions Please refer to the electronic Patient Visit Report (Discharge Instructions) for additional information. Additional Copies To Yojana Hawley .BRICE
[2017-07-02 15:17] VITALS: TEMP 36.3; O2SAT 95
[2017-07-02 15:37] VITALS: BP 110/66; PULSE 76; O2SAT 97
== END 2017-07-02 17:14 | disposition home health service (06) ==
LOC: EDBD 12:39 → C.EDB 12:40 → C.MED 22:38 → EDBEDREQ 22:42 → ENRESERV 23:08
PROVIDERS: ADMIT Internal Medicine; ATTEND Hospitalist
DX: I63.9 Cerebral infarction, unspecified (principal); I10 Essential (primary) hypertension; E11.51 Type 2 diabetes mellitus with diabetic peripheral angiopathy without gangrene; E11.42 Type 2 diabetes mellitus with diabetic polyneuropathy; C61 Malignant neoplasm of prostate; I65.29 Occlusion and stenosis of unspecified carotid artery; I65.09 Occlusion and stenosis of unspecified vertebral artery; I69.393 Ataxia following cerebral infarction; I69.351 Hemiplegia and hemiparesis following cerebral infarction affecting right dominant side; I69.398 Other sequelae of cerebral infarction; H53.8 Other visual disturbances; Z86.73 Personal history of transient ischemic attack (TIA), and cerebral infarction without residual deficits; Z79.02 Long term (current) use of antithrombotics/antiplatelets; Z79.4 Long term (current) use of insulin; Z79.82 Long term (current) use of aspirin; Z79.899 Other long term (current) drug therapy; Z89.421 Acquired absence of other right toe(s)

== ENCOUNTER → 2017-07-13 | Outpatient (CLI) | payer BC ==
[~2017-07-13] MED LIST changes: +ASPI325T39 PO; -ASPI81TA28 PO; +ATOR-24 PO; -ATOR-26 PO; +BISA10SU5 RE; -BYS/5 PO; -CALC1TAB9 PO; +DEXT40GE20; -DGRI240 SC; +DOCU100C31 PO; -LISI-729 PO; +LOSA1TAB PO; -LVNIS40 SC; +METO25TA56 PO; +MOML PO; +MRLP17X PO; +NVLG SQ; +SENEKOT; +SENN-65 PO; +SODIENE PR; -SULF800T23 PO
[2017-07-13 13:41] VITALS: BP 124/65; PULSE 82; TEMP 36.3; O2SAT 97
--- NOTE | 2017-07-13 16:06 | Radiation Oncology Follow-Up ---
Radiation Oncology Follow-Up Date of Visit Jul 13, 2017. Reason For Visit Follow-up and update on recent hospitalization Radiation Completion Date has not started RT Diagnosis (1) Prostate cancer Status: Chronic Onset Date: 03/10/2017 Location: left lobe of the prostate Histology Subtype: adenocarcinoma Stage: IV Permanent Comment: PSA at 57 Status post ultrasound-guided biopsies 03/10/2017 Adenocarcinoma [place] 4+3 and 4+4 Prostate volume 34.6 Prostate density 1.647 Initiation of Fermagon therapy PSA 06/30/2017 at 9.88 Staging was changed from stage II to Stage IV due to an enlarged pelvic lymph nodes. Last Edited By: Mitzy Pepe on Jul 13, 2017 16:02 History of Present Illness Mr. Llanos is a 66-year-old male who has a family history of prostate cancer. The patient's brother was diagnosed with prostate cancer but chose to not have it treated. He ultimately at age 74 from Parkinson's disease. The patient does have 1 son age 40 6Y consult to start screening as soon as possible. The patient was being seen for a well visit and he was queried about a prostate-specific antigen history. The patient stated that he has never had a prostate-specific antigen drawn. For that reason 1 was ordered. This was drawn on 03/01/2017. Unfortunately this came back abnormal with a reading of 57. The patient was therefore scheduled to see Dr. Morales as a new patient referral on 03/07/2017. Based on the prostate-specific antigen finding he discussed with the patient the risks of a aggressive prostate cancer and discussed an ultrasound-guided prostate biopsy. The patient agreed. He was on Lasix and aspirin and these were held. He was started on ciprofloxacin and a prostate biopsy was performed on 03/10/2017. Biopsies were taken from the left and right base, left and right mid gland and left and right apex. All the biopsies from the right gland were benign. Biopsy from the left base was positive for adenocarcinoma [place] grade 4+4 involving 5% of the core length with no perineural or lymphovascular invasion identified. Biopsy from the left mid gland were positive for adenocarcinoma Smith[place] grade 4+4 involving 70% of the core tissue sample with no perineural or lymphovascular invasion identified. Biopsies from the left apex was positive for prostatic adenocarcinoma Chemo grade 4+3 involving 95% of the core tissue sample with no perineural or lymphovascular invasion identified. Case: [id number]. Dr. Morales then scheduled the patient for a staging workup. On 03/22/2017 the patient underwent a whole-body bone scan and CT scan of the abdomen and pelvis. The bone scan showed a focus of increased activity within the left ankle which is felt to be compatible with a degenerative/posttraumatic cause. There was no foci of increased activity uterus suspicious for skeletal metastatic disease. The CT scan of the abdomen and pelvis showed no abnormalities in the lung base, liver, pancreas, spleen, adrenal glands, kidneys and ureters. There was mild bladder wall thickening suggested. There was normal CT appearance of the prostate and seminal vesicles. A low-density ovoid 0.9 cm lesion is noted in the left external iliac region with intensity of 30-40 Hounsfield units. Pathologically enlarged lymph nodes were noted in the left internal iliac region. A sentinel node measured 1.7 cm with a disease and a second adjacent node measuring 1.1 cm. There was infiltration of the anterior abdominal wall with apparent overlying skin thickening. Multiple sclerotic foci were noted in the left acetabulum and left femoral head some of which could represent bony islands. Degenerative changes were noted in the lumbar spine. No additional sclerotic lesions were appreciated. The patient returned to discuss these findings with Dr. Morales on 03/24/2017. Based on his comorbidities Dr. Morales did not feel he was a surgical candidate. He recommended initiation of hormonal suppression and is planning to start him on Fermagon secondary to his history of diabetes and heart disease and stroke. He was also kind enough to ask us to see the patient in referral for evaluation and discussion of the possible role of radiation. Interim History The patient has started androgen deprivation therapy. He was started on Fermagon. He unfortunately suffered a CVA and was hospitalized. He had right sided weakness. He had an MRI 07/01/2017 which showed small to moderate sized subacute infarct of the left parietal lobe near the vertex demonstrates cortical enhancement suggesting laminar necrosis with mild associated edema. There is no mass effect. There are multiple acute to subacute appearing small infarcts of the left frontal and parietal lobes predominantly within the watershed distribution between the anterior and middle cerebral arterial distributions. He was seen by neurosurgery at [facility]. There is recommendation for craniotomy and vascular surgery. With the initiation of the androgen deprivation the PSA has fallen from 66 to 9.88. Allergies Coded Allergies: No Known Allergies (Verified , 07/01/17) Home Medications Scheduled Aspirin (Aspirin Ec), 325 MG PO DAILY Atorvastatin (Lipitor), 40 MG PO DAILY Cholecalciferol (Vitamin D3), 2,000 UNITS PO BID Clopidogrel (Plavix), 75 MG PO QAM Escitalopram (Lexapro), 10 MG PO QAM Insulin Glargine (Lantus Solostar), 48 UNITS SC BID Insulin Lispro (Human) (Humalog), 1 DOSE SC ACHS Scheduled PRN Acetaminophen (Tylenol), 500 MG PO UD PRN for Pain Docusate Sodium (Docusate Sodium), 100 MG PO BID PRN for Constipation Polyethylene (Miralax), 1 GM PO DAILY PRN for Constipation [Senekot], 1 TAB for PRN Review of Systems Gastrointestinal: Symptoms: Constipation GI Comments: miralax senekot last BM 07/11/17 Oral: Other Oral Symptoms: sore throat started on Respiratory: Symptoms: Dry Cough, SOB With Exertion Urinary: Symptoms: Nocturia Comments: nocturiax0-4x hematuriax1 also noted blood underwear 5x Skin: Symptoms: No Problems Other Skin Symptoms: right foot second toe due to surgery amputation still healing Physical Exam Vital Signs Date Time Temp Pulse Resp B/P (MAP) Pulse Ox O2 Delivery O2 Flow Rate FiO2 07/13/17 13:41 36.3 82 20 124/65 97 Fatigue: Moderate General Appearance: no apparent distress Eyes: normal inspection, EOMI ENT: normal ENT inspection, hearing grossly normal Respiratory/Chest: lungs clear, no respiratory distress, no accessory muscle use Cardiovascular: regular rate, rhythm, no gallop, no murmur Abdomen: non tender, soft, no organomegaly Extremities: no pedal edema Neurologic/Psychiatric: no motor/sensory deficits, alert, normal mood/affect, + depressed affect Skin: + pallor Pain Management Patient Reports Pain: No Pain Management Plan He denies pain therefore requires no pain management. Laboratory Laboratory Results: not applicable Pathology Pathology Results: were reviewed, and pertinent findings noted in HPI Imaging Imaging Studies: were reviewed, and pertinent findings noted below Imaging Comments Patient: JACINTO LLANOS Address1: [address] [place] [address] Rec: [id number] Address2: Acct ID: [id number] [facility] Zip: [place] [address] Date: 1950 Sex: M Room/Bed: Ref Phy: David Carrero M.D. SC: MARY KATE Att Phy: Report #: [id number] Myriam Phy: Yojana Hawley CRNP Test: APIV Admit Phy: Process Helper: DINO Interpreting Phy: Carlos Alberto Alvarez M.D. Diagnosis: STROKE LIKE SYMPTOMS Ordering Phy: Evin Coleman M.D. Service Date: 06/16/17 Admit Date: 06/16/17 MNE: [id number] CONF: DICTATED BY: Carlos Alberto Alvarez M.D.]] CC: Evin Coleman M.D. Martin, Allison .BRICE Eugene J., M.D. Endcc: [~ rep ct add3]] CT ABD/PELVIS IV CONTRAST ONLY CLINICAL HISTORY: Abdominal pain status post trauma COMPARISON STUDY: 03/22/2017 TECHNIQUE: Following the IV administration of 115 mL of Optiray-320, CT scan of the abdomen and pelvis was performed from the lung bases to the proximal femurs. Images are reviewed in the axial, sagittal, and coronal planes. IV contrast was administered without complication. A dose lowering technique was utilized adhering to the principles of ALARA. CT DOSE: FINDINGS: Lower chest: The heart is normal in size and configuration, without pericardial effusion. The lung bases and pleural spaces are clear. Liver: There is mild hepatic steatosis. No space-occupying masses are visualized. Gallbladder: Unremarkable. Spleen: Normal in size and attenuation. Pancreas: Unremarkable. Adrenal glands: Unremarkable. Kidneys: There is symmetric renal cortical enhancement. The kidneys are normal in size without hydronephrosis. Bowel: There are no transition zones indicate bowel obstruction. There is no interloop fluid. There are no extraluminal air collections. There is no acute diverticulitis. The appendix appears normal. Peritoneum: There is no intraperitoneal free air or abdominal ascites. Vasculature: The abdominal aorta is normal in course and caliber. Adenopathy: There is a 2 cm soft tissue density along the left iliac chain, likely representing a lymph node. This appears smaller than on the preceding study. Pelvic viscera: There is mild bladder wall thickening. Skeletal structures: 6 no fractures are visualized. Degenerative changes are present within the spine. There is subcutaneous anterior abdominal wall contusions. There are nonspecific sclerotic foci within the pelvis, unchanged the prior study. IMPRESSION: 1. Subcutaneous anterior abdominal wall contusions 2. No evidence of solid organ injury. 3. Interval decrease in the size of the enlarged left external iliac lymph node. Electronically signed by: Carlos Alberto Alvarez M.D. 06/16/2017 1:27 PM Patient: JACITNO LLANOS Address1: [address] [place] [address] Rec: [id number] Address2: Acct ID: [id number] [facility] Zip: [place] [id number] Date: 1950 Sex: M Room/Bed: Ref Phy: Yojana Hawley CRNP SC: DenisEDB Att Phy: Report #: [id number] Myriam Phy: Yojana Hawley CRNP Test: [facility] Admit Phy: Process Helper: REGINALDO Interpreting Phy: Luis Eduardo Bernstein D.O. Diagnosis: GENERAL DECLINE IN HEALTH Ordering Phy: Kyler Vilchis MD Service Date: 07/01/17 Admit Date: 07/01/17 MNE: PWRSCRIBE CONF: DICTATED BY: Luis Eduardo Bernstein D.O.]] CC: Kyler Vilchis MD Martin, Allison ., CRNP Endcc: [~ rep ct add3]] BRAIN COMBO HISTORY: 67 years-old Male Pt c/o ataxia acute ataxia COMPARISON: MRI brain 03/24/2017, CT head and MRA head of same day TECHNIQUE: Multiplanar multisequence MRI of the brain was obtained both with and without the use of 10.5 mL Gadavist FINDINGS: Large field view overedger localizer images demonstrate no gross abnormality. Multifocal areas of restricted diffusion are noted within the watershed distribution of the left frontal and parietal lobes between the anterior and middle cerebral artery arterial distributions near the vertex. Cortically based 1.3 cm area of restricted diffusion is seen on image 22 series 4 with additional areas of cortically based restricted diffusion seen on image 20 of series 4 within this region. Punctate focal area of restricted diffusion measures 5 mm on image 21 series 4 within the posterior left frontal lobe with additional 4 to 5 mm foci of the frontal and parietal lobes respectively seen on image 17 series 4 and punctate foci within the periventricular white matter of the left cerebral hemisphere on image 16 series 4. There is mildly increased T2/FLAIR signal within this distribution with decreased signal on ADC map. Additionally, there is cortically based enhancement of the left parietal lobe as seen on images 18 through 22 of series 16 compatible with subacute etiology. Remote infarction of the left occipital and left frontal lobes redemonstrated with gliosis and encephalomalacia. No acute intracranial hemorrhage, midline shift, hydrocephalus or abnormal extra-axial collections. Mild atrophy with chronic microvascular ischemic changes redemonstrated. Degenerative changes are seen within the imaged upper cervical spine. No cerebellar tonsillar herniation. Major flow voids at the level the skull base appear patent. No mastoid effusion. Mild ethmoid sinus mucosal thickening. Prior bilateral cataract. Scalp and soft tissues are unremarkable. IMPRESSION: 1. Small to moderate sized subacute infarction of the left parietal lobe near the vertex demonstrates cortical enhancement suggesting laminar necrosis with mild associated edema. No significant mass effect, midline shift or hydrocephalus. Additionally, there are multiple acute to subacute appearing small infarctions of the left frontal and parietal lobes predominantly within the watershed distribution between the anterior and middle cerebral arterial distributions as above. 2. Remote infarctions with mild gliosis and encephalomalacia are noted involving the left frontal and left occipital lobes. 3. Mild atrophy with chronic microvascular ischemic changes. The above report was generated using voice recognition software. It may contain grammatical, syntax or spelling errors. Electronically signed by: Ronaldo Bernstein M.D. 07/01/2017 8:12 PM Dictated Date/Time: 07/01/2017 7:59 PM Assessment & Plan (Attending) I met with Mr. Llanos and his . The patient recently had a stroke and was admitted. He is now discharged and according to the patient's has recovered to where he was prior to this most recent incident. The patient has also had a repeat prostate-specific antigen which has showed response to the hormonal therapy decreasing from 66 down to 9. The patient is scheduled for a repeat Firmagon injection which was slightly delayed due to his recent hospitalization. The patient has noted some increasing urinary symptoms and his AUA score has gone from a 7 to a 14. He is having more frequent urination at night and a sense of not emptying and urgency. I did speak with him about starting Uroxatral. The patient was in agreement and a prescription was given to him. We talked about the possibility of starting external radiation to the pelvis including the pelvic nodes. I told them that it was reasonable to consider this treatment however he has to take into consideration the potential side effects of a local treatment in relation to the anticipated benefits and his overall health and status. He had indicated that he at the time of his recent admission a neurosurgeon had seen him and suggested a possible procedure to bypass her stent one of the vessels in his brain to avoid or decrease the risk of a repeat stroke. They would like to proceed with that procedure which is tentatively scheduled for September 01. The surgeon wanted to speak with me to discuss whether this was appropriate given his anticipated survival. I told the patient and his that it is likely that he would survive several years given his initial good response and that I thought it was very reasonable to proceed with the surgery. I have placed a call to the neurosurgeon and am awaiting his return call for me to pass this information on to him. It was decided therefore to wait until after the procedure at which time we would then revisit with the patient evaluate his urinary status and if he is still willing we would then proceed with a CT simulation and treatment planning. I would recommend that we treat with external radiation only to avoid the need for prostate seed implant. I also would suggest we avoid placement of gold fiducial markers seeds so the patient will not have to go off of anticoagulation therapy. We can treat with IMRT and IGRT utilizing [facility] imaging for localization of our target and daily treatment verification. I did review with the patient and his the anticipated duration of treatment as well as a brief description of the potential risks and side effects of the course of treatment. No consent form was obtained at this time. Once the patient has completed his neurosurgical procedure we will revisit the role of radiation and go into greater detail with the risks and side effects and if in agreement will proceed with simulation, treatment planning and initiation of treatment. Thank you for allowing us to participate in the care of this patient. This chart was completed in part utilizing [employer] Speech Voice Recognition software. Attempts were made to minimize the grammatical errors, random word insertions, pronoun errors and incomplete sentences. Any formal questions or concerns about the content, text or information contained within the body of this dictation should be directly addressed to the provider for clarification. Dalton Patel MD Department of Radiation Oncology [facility] Total Time In Follow-Up I spent 20 minutes speaking to the patient and performing examination. I spent 15 minutes reviewing information in completing this note. [place] Total Time (Attending) In Follow-Up I spent 30 minutes in discussion of treatment options with this patient, 15 minutes in discussion with his referring physicians and the neurosurgeon and in preparation of this document. KEYONA Copy To Shelli Butler PA-C; Clay Weiss M.D.,; Abhishek Morales M.D.
== END | disposition home or self-care (01) ==
LOC: C.ONC 13:22
PROVIDERS: ATTEND Physician Assistant Medical
DX: Z09 Encounter for follow-up examination after completed treatment for conditions other than malignant neoplasm (principal); C61 Malignant neoplasm of prostate

== ENCOUNTER → 2017-08-19 | Outpatient (CLI) | payer BC ==
[~2017-08-19] MED LIST changes: -BISA10SU5 RE; -DEXT40GE20; -LOSA1TAB PO; -METO25TA56 PO; -MOML PO; -NVLG SQ; -SENN-65 PO; -SODIENE PR
== END | disposition home or self-care (01) ==
LOC: C.LABBC 09:42
PROVIDERS: ATTEND Nurse Practitioner Adult Health
DX: R39.9 Unspecified symptoms and signs involving the genitourinary system (principal)

== ENCOUNTER → 2017-08-24 | Outpatient (CLI) | payer BC | END | disposition home or self-care (01) | LOC: C.LABBC 09:01 | PROVIDERS: ATTEND Physician Assistant | DX: E78.00 Pure hypercholesterolemia, unspecified (principal) ==